=== PATIENT | male | born 1970 | race Two or more races ===

== ENCOUNTER 2024-09-11 23:51 | Emergency (ER) | payer OTHER, MEDICAID, SELFPAY ==
[2024-09-11 23:54] VITALS: BMI 20.9
[2024-09-11 23:58] VITALS: BP 105/71; PULSE 100; RESP 19; TEMP 36.6; O2SAT 99
--- NOTE | 2024-09-12 00:12 | PD.EDRME ---
Rapid Medical Screening Exam E Arrival date/time: 09/11/24 23:51 54M with history of cirrhosis presents to ED with bleeding and oozing of fluid from the abdominal ascites evacuation tube insertion site put in on the 4th by Dr. Little. Chief Complaint: Wound Recheck / Suture Removal Vital signs: Vital Signs Temperature 97.9 F 09/11/24 23:58 Pulse Rate 100 09/11/24 23:58 Respiratory Rate 19 09/11/24 23:58 Blood Pressure 105/71 09/11/24 23:58 Pulse Oximetry (%) 99 09/11/24 23:58 Oxygen Delivery Method Room Air 09/11/24 23:58
[2024-09-12 05:16] VITALS: BP 115/64; PULSE 89; RESP 17; TEMP 36.6; O2SAT 97
[2024-09-12 06:37] VITALS: BP 114/67; PULSE 88; RESP 17; TEMP 36.7; O2SAT 100
--- NOTE | 2024-09-12 07:09 | EDNOTE_ITS ---
ED General RME/HPI General Chief complaint: Wound Recheck / Suture Removal Stated complaint: BLEEDING AND LEAKING LIQUID FROM TUBVE SITE Time Seen by Provider: 09/12/24 08:10 Arrival date/time: 09/11/24 23:51 RME / HPI RME / HPI narrative: 09/11/24 23:51 54M with history of cirrhosis presents to ED with bleeding and oozing of fluid from the abdominal ascites evacuation tube insertion site put in on the 4th by Dr. Little. Dr. Menchaca MAIN ED EVALUATION 54 year old male with history of liver cirrhosis, end stage liver disease with thrombocytopenia, recurrent ascites s/p Pleurx catheter insertion by Dr. Venegas on 09/06/2024 presents to the ED for concerns of drainage and bleeding from catheter site beginning 4 days ago. reports they have been unable to reach Dr. Bowen for an appointment. states they have an appointment with their PCP Hank English on 09/14/2024. No other complaints reported. Denies fevers, chills, chest pain, cough, shortness of breath, or abdominal pain. Related Data Home Medications ?Medication ?Instructions ?Recorded ?Confirmed furosemide 20 mg tablet 20 mg PO QDAY 10/22/21 09/06/24 ferrous sulfate 325 mg (65 mg 1 tab PO BID 07/12/22 09/06/24 iron) tablet trazodone 100 mg tablet 100 mg PO QHSPRN PRN Sleep 07/12/22 09/06/24 megestrol 40 mg tablet 80 mg PO TID 04/01/24 04/01/24 pantoprazole 40 mg tablet,delayed 40 mg PO BID 04/01/24 08/20/24 release potassium chloride 10 mEq 10 meq PO QDAY 04/01/24 09/06/24 tablet,extended release(part/cryst) dexamethasone 4 mg tablet 4 mg PO BID 08/20/24 09/06/24 hydrocodone 5 mg-acetaminophen 325 1 tab PO Q6H PRN Gastric Reflux 08/20/24 09/06/24 mg tablet spironolactone 100 mg tablet 100 mg PO BID 08/20/24 09/06/24 midodrine 5 mg tablet 5 mg PO TID PRN Hypotension 09/06/24 09/06/24 Previous Rx's ?Medication ?Instructions ?Recorded propranolol 10 mg tablet 10 mg PO TID #90 tabs 10/15/22 Allergies Allergy/AdvReac Type Severity Reaction Status Date / Time peanut Allergy Severe Hives Verified 09/11/24 23:54 Review of Systems Review of Systems Narrative Review of Systems: Gen: No fever, no chills, no weight loss EYES: No discharge, no visual changes, no pain HEENT: No ear pain, no congestion, no sore throat PULM: No shortness of breath, no cough, no congestion CV: No chest pain, no dyspnea on exertion, no palpitations GI: +drainage from Pleurx catheter insertion site on abdomen. No nausea, no vomiting, no diarrhea, no pain, no constipation : No frequency, no urgency,? no dysuria Musc/skel: No joint pain, no back pain Skin: No rash. Neuro: No weakness, no headache Past Medical History Past Medical History CARDIAC: Positive Hypertension and Hypotension RESPIRATORY: Positive Pneumonia GASTROINTESTINAL: Positive Hepatitis, Cirrhosis, Gastrointestinal Bleed, Esophageal Varices, Ulcer, Hiatal Hernia, Hemorrhoids and Gastroesophageal Reflux Disease GENITOURINARY: Positive Genitourinary Disorders (urinary retention) HEMATOLOGIC: Positive Anemia PSYCHO/SOCIAL: Positive Recreational Drug Use OTHER HISTORY: Positive Falls, Blood Transfusions, Cancer and Lung Cancer (unclear) Surgical History SURGICAL: Negative Cardiac Surgery Social History SMOKING STATUS: Never smoker SUBSTANCE USE: marijuana ED Exam Narrative Physical exam: GENERAL: In general the patient is awake, interactive, in an emergency department gurney. Lying comfortably. No jaundice. HEAD/EYES/EARS/NOSE/THROAT: normo-cephalic, atraumatic, mucus membranes are moist, anicteric, palpebral conjunctiva is pink, trachea is midline. CARDIOVASCULAR: regular rate and regular rhythm, no murmurs, heart sounds are not distant, strong pulses in all four extremities that are equal and symmetric bilateral upper and lower extremities, normal capillary refill. CHEST/PULMONARY: normal chest rise and fall, good air movement, clear to auscultation bilaterally, normal inspiratory to expiratory ratios without evidence of respiratory distress. No accessory muscle use. ABDOMEN: soft, not tender, no masses appreciated, there is dressing on the right mid abdomen with dry serosanguineous drainage on the sponge under the tegaderm, no surrounding erythema. Upon removing the dressing there is a very small leak. BACK: normal range of motion without pain. NEUROLOGICAL: cranio-facial features are symmetric, moves all four extremities equally without obvious limitations or weakness. EXTREMITY: no tenderness to palpation over the long bones or large joints of the bilateral upper and lower extremities, no joint swelling, no joint erythema, no signs of trauma, no unilateral leg swelling and no peripheral edema. SKIN: warm, dry, well-perfused, no jaundice, no rash, no telangiectasias or petechia. PSYCH: calm, cooperative, no evidence of psychosis or agitation Course Quality Measures none Vital Signs Vital signs: Vital Signs Temperature 97.9 F 09/11/24 23:58 Pulse Rate 100 09/11/24 23:58 Respiratory Rate 19 09/11/24 23:58 Blood Pressure 105/71 09/11/24 23:58 Pulse Oximetry (%) 99 09/11/24 23:58 Oxygen Delivery Method Room Air 09/11/24 23:58 Pulse ox is 99% on room air which is adequate. Procedures -ED Laceration Laceration 1: Site: other (Abdomen ) Side (If applicable): right (About .5cm from the insertion site with intermittently dripping clear fluid ) Size (cm): 0.5 Description: linear Depth: simple, single layer Local Anesthetic: lidocaine 1% Amount of anesthesia used (mL): 1 Pre-repair: wound explored Skin layer closed with: other (Ethilon) Size (cm): 4-0 Number of sutures: 1 Technique: other (Figure 8 ) MDM Patient data External records reviewed:: [facility] previous records (I reviewed ultrasound guided Pleurx insertion procedure note from Dr. Bowen 09/06/2024. I reviewed ED visit on 09/07/2024. ) Clinical information provided by:: patient Social determinants that could affect healthcare access:: none Patient has the following chronic illnesses:: liver cirrhosis, end stage liver disease with thrombocytopenia, recurrent ascites s/p Pleurx catheter insertion by Dr. Bowen on 09/06/2024 How is presenting disease/condition affected by chronic disease/condition?: exacerbated by Evaluation data The following diagnostics were reviewed and interpreted by me:: other (specify) (N/A ) Lab and/or radiology exams considered but not ordered:: None Interpretation Summary: N/A Medications Medications considered but not ordered:: None Medication administrations:: None Consultations Consultation(s) initiated? (list below): No Diagnosis Differential Diagnosis ED Complaint MDM: Encounter for medical screening exam, Pleurx catheter malfunction Most likely diagnosis given after review of the tests above:: Encounter for wound care Admission Indicated Admission indicated?: not indicated Explain why admission is indicated or not indicated:: Patient does not meet admission criteria Admission Request Was there a request for admission?: No Disposition Plan Disposition Plan: Discharge Discharge Attestation Discharge Attestation: The patient and all family members were given an opportunity to ask questions and understood the discharge instructions. Discharge instructions specifically effects, indications for sooner follow up or return to the emergency department, and the expected course of current diagnosis. Patient condition: Stable Medical Decision Making Differential Diagnosis Differential Diagnosis: Encounter for medical screening exam, Pleurx catheter malfunction Discharge Plan Plan Patient Disposition: HOME (Self Care) Patient condition on transfer: Stable Prescriptions/Referrals Prescriptions/Med Rec: No Action furosemide 20 mg tablet 20 mg PO QDAY Hold Instructions: Resume on 08/28/24. trazodone 100 mg tablet 100 mg PO QHSPRN PRN (Reason: Sleep) Patient Comments: TAKE 1 TABLET BY MOUTH EVERY DAY AT BEDTIME NEEDED FOR 30 DAYS ferrous sulfate 325 mg (65 mg iron) tablet 1 tab PO BID Patient Comments: TAKE 1 TABLET BY MOUTH TWICE A DAY FOR 30 DAYS propranolol 10 mg tablet 10 mg PO TID Qty: 90 0RF Hold Instructions: Resume on 08/28/24. midodrine 5 mg tablet 5 mg PO TID PRN (Reason: Hypotension) Rx Instructions: do not give last dose of day after 6PM or within 4 hrs of bedtime pantoprazole 40 mg tablet,delayed release (DR/EC) 40 mg PO BID Patient Comments: TAKE 1 TABLET BY MOUTH TWICE A DAY megestrol 40 mg tablet 80 mg PO TID Patient Comments: TAKE 2 TABLETS BY MOUTH 3 TIMES A DAY potassium chloride 10 mEq tablet,ER particles/crystals 10 meq PO QDAY spironolactone 100 mg tablet 100 mg PO BID Hold Instructions: Resume on 08/28/24. dexamethasone 4 mg tablet 4 mg PO BID hydrocodone-acetaminophen 5-325 mg Tablet 1 tab PO Q6H PRN (Reason: Gastric Reflux) Referrals: No Primary/Family,Physician [Primary Care Provider] - In 1 week Problem List Clinical Impression: Encounter for wound care Patient/Caregiver Discharge Instructions Education Materials: ED Wound Care Additional Instructions: Return to the emergency department for worsening symptoms or any other concerns. Follow-up with your primary care this week as scheduled. Print Language: Bahraini Stand Alone Forms: Jessica Award Info., Patient Portal Info Letter
[2024-09-12 08:12] VITALS: BP 118/67; PULSE 88; RESP 16; TEMP 37; O2SAT 100
== END 2024-09-12 08:24 | disposition home or self-care (01) ==
PROVIDERS: Emergency Provider Emergency Medicine
DX: S31.119A Laceration without foreign body of abdominal wall, unspecified quadrant without penetration into peritoneal cavity, initial encounter (principal); L76.22 Postprocedural hemorrhage of skin and subcutaneous tissue following other procedure; X58.XXXA Exposure to other specified factors, initial encounter
CPT/HCPCS: 12001; 99283

== ENCOUNTER 2024-09-20 11:09 | Inpatient (IN) | payer MEDICAID, SELFPAY ==
[2024-09-20] VITALS (7 sets, daily range): BP systolic 92–103; BP diastolic 57–71; PULSE 93–107; RESP 17–20; TEMP 36.6–36.8; O2SAT 99–100; BMI 28.3; BMI 20.7
--- NOTE | 2024-09-20 12:05 | XR_ITS ---
Examination: CT abdomen and pelvis without contrast. Coronal 3-D reconstructions. Sagittal 2-D reconstructions. Date and time of exam:September 20, 2024 1215 hours INDICATIONS: Abdominal distention today, history abdominal ascites drainage tube CTDI: vol (mGy): 5.17 DLP: (mGycm): 304 Technique: Axial images of the abdomen have been obtained, 3 mm slice thickness Intravenous contrast material has not been administered. Low dose protocols were performed. One or more of the following dose reduction techniques were used; automated exposure control, adjustment of the mA and/or KV according to patient size, use of iterative reconstruction technique. Findings: Cirrhosis, liver nodular in contour Prominent ascites Contracted gallbladder No splenic or pancreatic lesion Linear hyperdense area in the right kidney axial image 95 Aorta normal size The Pleurx drainage catheter is in satisfactory position Fluid containing umbilical hernia No bowel obstruction IMPRESSION: Cirrhosis Prominent ascites Pleurx drainage catheter is in satisfactory position
--- NOTE | 2024-09-20 12:07 | EDNOTE_ITS ---
ED General RME/HPI General Chief complaint: Altered Mental Status Stated complaint: CONFUSED. PULLED PARA TUBE OUT PER FAMILY Time Seen by Provider: 09/20/24 11:14 Arrival date/time: 09/20/24 11:09 CC: Potential dislodgment of an abdominal ascites drain tube HPI last time it was used was this morning, nurses noted at home that the drain tube had essentially dislodged itself for the most part there is no active draining of ascites from the site. Patient states last time the tube was used prior to today was September 17. Patient is mildly confused which is baseline per the because of his elevated ammonia level. Patient states he has no specific complaints other than tube dislodgment. Abdomen is mildly distended secondary to ascites. Related Data Home Medications ?Medication ?Instructions ?Recorded ?Confirmed furosemide 20 mg tablet 20 mg PO QDAY 10/22/21 09/21/24 ferrous sulfate 325 mg (65 mg 1 tab PO BID 07/12/22 09/21/24 iron) tablet trazodone 100 mg tablet 100 mg PO QHSPRN PRN Sleep 07/12/22 09/21/24 pantoprazole 40 mg tablet,delayed 40 mg PO BID 04/01/24 09/21/24 release potassium chloride 10 mEq 10 meq PO QDAY 04/01/24 09/21/24 tablet,extended release(part/cryst) dexamethasone 4 mg tablet 8 mg PO BID 08/20/24 09/21/24 hydrocodone 5 mg-acetaminophen 325 1 tab PO Q6H PRN Pain 08/20/24 09/20/24 mg tablet spironolactone 100 mg tablet 100 mg PO BID 08/20/24 09/21/24 midodrine 5 mg tablet 5 mg PO TID PRN Hypotension 09/06/24 09/21/24 melatonin 3 mg tablet 3 mg PO HS PRN Sleep 09/21/24 09/21/24 omeprazole 10 mg capsule,delayed 10 mg PO QDAY 09/21/24 09/21/24 release Allergies Allergy/AdvReac Type Severity Reaction Status Date / Time peanut Allergy Severe Hives Verified 09/20/24 11:10 Review of Systems Review of Systems Narrative Review of Systems: GEN: No fever, no chills, no weight loss EYES: No discharge, no visual changes, no pain HEENT: No ear pain, no congestion, no sore throat PULM: No shortness of breath, no cough, no congestion CV: No chest pain, no dyspnea on exertion, no palpitations GI: No nausea, no vomiting, no diarrhea, no pain, no constipation,+ abdominal distention secondary to ascites : No frequency, no urgency, no dysuria MUSC/SKEL: No joint pain, no back pain SKIN: No rash PSYCH: No hallucinations, no depression HEME/LYMPH: No easy bleeding or bruising tendencies NEURO: No weakness, no headache Past Medical History Past Medical History NEUROLOGIC: Negative Neurological Disorders or Seizures CARDIAC: Positive Hypertension and Hypotension; Negative Cardiac Disorders, Hypercholesterolemia or Congestive Heart Failure RESPIRATORY: Positive Pneumonia; Negative Chronic Obstructive Pulmonary Disease (COPD) or Asthma GASTROINTESTINAL: Positive Hepatitis, Cirrhosis, Gastrointestinal Bleed, Esophageal Varices, Ulcer, Hiatal Hernia, Hemorrhoids and Gastroesophageal Reflux Disease GENITOURINARY: Positive Genitourinary Disorders; Negative Renal Disease MUSCULOSKELETAL: Negative Musculoskeletal Disorders ENDOCRINE: Negative Diabetes Mellitus Type 1 or Diabetes Mellitus Type 2 HEMATOLOGIC: Positive Anemia; Negative Sickle Cell Disease PSYCHO/SOCIAL: Positive Recreational Drug Use; Negative Anxiety OTHER HISTORY: Positive Falls, Blood Transfusions, Cancer and Lung Cancer; Negative Blood Transfusion Reaction or Anesthesia Reactions Surgical History SURGICAL: Negative Cardiac Surgery Social History SMOKING STATUS: Never smoker SUBSTANCE USE: marijuana ED Exam Narrative Physical exam: [General: Appears not in any acute distress Head normocephalic HEENT: Eyes: Sclera's are icteric. All other subsystems of HEENT are within acceptable limits Neck is supple nontender Chest equal chest rise nontender to palpation Respiratory: Clear to auscultation no wheezes crackles or rubs CV: Rate rhythm is regular no murmurs rubs or clicks Abdomen is distended secondary to ascites, soft nontender no masses positive bowel sounds all 4 quadrants, right lower quadrant drain tube sites clean dry and intact drain to and is partially protruding through the surgical opening no surrounding erythema or edema. Back: No CVA tenderness no spinous process tenderness from cervical spine thoracic and lumbar spine Skin: Jaundice, intact no petechiae rash induration ulceration or crepitus Extremities: Moving all extremity against resistance cap refill less than 2 seconds neurosensory intact Neuro: Awake alert oriented x2, person and place, Glascow coma 15 no focal deficits] Course Course Course Narrative: Patient case discussed with Dr. Brand who agrees to accept the patient for Dr. Esquivel. Quality Measures none Orders Category Date Time Status CT abdomen pelvis wo con Stat Exams 09/20/24 12:05 Completed Ammonia Stat Lab 09/20/24 12:41 Completed CBC Stat Lab 09/20/24 12:41 Completed CMP [Comprehensive Metabolic Panel] Stat Lab 09/20/24 12:41 Completed PT [Prothrombin Time with INR] Stat Lab 09/20/24 12:41 Completed PTT [Partial Thromboplastin Time] Stat Lab 09/20/24 12:41 Completed VBG [Venous Blood Gas] Stat Lab 09/20/24 14:21 Completed Lactulose Syrup [Enulose Syrup] Med 09/20/24 13:17 Discontinued 40 gm PO X1 ONE Late Tray Request Routine Oth 09/20/24 12:46 Active Vital Signs Vital signs: Vital Signs Temperature 98.1 F 09/20/24 11:18 Pulse Rate 93 09/20/24 11:18 Respiratory Rate 18 09/20/24 11:18 Blood Pressure 92/57 L 09/20/24 11:18 Pulse Oximetry (%) 100 09/20/24 11:18 Oxygen Delivery Method Room Air 09/20/24 11:18 Procedures -ED Procedure Comment Resecuring of the Pleur-evac drainage verbal consent of obtained anesthesia 1% lidocaine 3 mL injected in the local site, the site was extensively cleaned, Pleur-evac tube was also extensively cleaned with Betadine, site was then approximated with a purse stitch of 0 silk with good approximation and securing patient tolerated the procedure well pressure dressing applied. [facility] Patient data External records reviewed:: [facility] previous records Clinical information provided by:: patient and spouse Social determinants that could affect healthcare access:: none Patient has the following chronic illnesses:: Abdominal ascites end-stage liver disease and hepatic encephalopathy cirrhosis secondary to alcohol abuse How is presenting disease/condition affected by chronic disease/condition?: u neffected by Evaluation data The following diagnostics were reviewed and interpreted by me:: lab results and radiology exam(s) Lab and/or radiology exams considered but not ordered:: CBC shows leukocytosis 19.1 with a stable anemia no thrombocytopenia CMP shows a sodium 118 potassium of 5.6 chloride of 97 CO2 of 13.9 BUN of 19 creatinine 1.3 glucose of 9 8 total bili of 5.3 AST 62 alk phos of 172 ammonia of 75 PT of 18.9 INR 1.[address] shows the Pleur-evac drain in satisfactory position as interpreted by me read by radiology. There is also ascites Interpretation Summary: Patient needs to be admitted for hyponatremia. Medications Medications considered but not ordered:: None Medication administrations:: Medication Administration History Acetaminophen (Acetaminophen 325 Mg Tablet) 650 mg PO Q6H PRN PRN Reason: Pain (1-3) and Fever >101.5 Stop: 10/20/24 15:21 Hydrocodone Bitart/Acetaminophen (Hydrocodone/Apap 5/325 Tablet) 1 tab PO Q6HR PRN PRN Reason: PAIN SCALE 4-10(Mod-Sev Stop: 09/25/24 23:20 Last Admin: 09/20/24 23:50 Dose: 1 tab Documented By: CL Citric Acid/Sodium Citrate (Citric Acid/Sodium Citr 15 Ml Udc (Bicitra)) 30 ml PO BID [facility] Stop: 10/21/24 08:59 Albumin Human (Albuminar-25 Ivpb) 25 gm in 100 mls @ 100 mls/hr IV QID [facility] Stop: 09/23/24 16:59 Last Admin: 09/21/24 06:41 Dose: 100 mls/hr Documented By: Infusion: 09/20/24 21:02 Dose: Infused Documented By: Admin: 09/20/24 20:02 Dose: 100 mls/hr Documented By: Infusion: 09/20/24 18:08 Dose: Infused Documented By: Admin: 09/20/24 17:02 Dose: 100 mls/hr Documented By: RICHAR Ceftriaxone Sodium 2 gm/ (Sodium Chloride) 50 mls @ 100 mls/hr IV QDAY [facility] Stop: 09/27/24 17:14 Last Infusion: 09/20/24 18:10 Dose: Infused Documented By: Admin: 09/20/24 17:30 Dose: 100 mls/hr Documented By: RICHAR Dextrose (D5w) 1,000 mls @ 50 mls/hr IV .Q20H [facility] Last Admin: 09/21/24 00:29 Dose: 50 mls/hr Documented By: CL Lactulose (Lactulose Syrup 20 Gm/30 Ml Udc) 10 gm PO BID [facility]; Protocol Stop: 10/20/24 20:59 Last Admin: 09/20/24 20:03 Dose: 10 gm Documented By: CL Midodrine (Midodrine 5 Mg Tablet) 5 mg PO TID JOSELIN Stop: 10/20/24 15:44 Last Admin: 09/21/24 06:40 Dose: 5 mg Documented By: Admin: 09/20/24 22:08 Dose: 5 mg Documented By: Admin: 09/20/24 16:35 Dose: 5 mg Documented By: RICHAR Ondansetron HCl (Ondansetron Inj 2 Mg/Ml Inj 2 Ml) 4 mg IV Q6H PRN; Protocol PRN Reason: NAUSEA OR VOMITING Stop: 10/20/24 15:21 Pantoprazole Sodium (Pantoprazole Inj 40 Mg Vial) 40 mg IVP QDAY JOSELIN Stop: 10/20/24 15:29 Last Admin: 09/20/24 16:25 Dose: 40 mg Documented By: RICHAR Discontinued Medications Acetaminophen (Acetaminophen 325 Mg Tablet) 650 mg PO Q6H PRN PRN Reason: Pain and Fever >101.5 Stop: 10/20/24 15:21 Hydrocodone Bitart/Acetaminophen (Hydrocodone/Apap 5/325 Tablet) 1 tab PO Q6HR PRN PRN Reason: PAIN 1-6 (mild-mod Stop: 09/25/24 23:20 Ceftriaxone Sodium/Dextrose (Rocephin/D5w 1gm Iv Premix) 50 mls @ 100 mls/hr IV QDAY [facility] Stop: 09/27/24 15:29 Last Admin: 09/20/24 17:54 Dose: Not Given Documented By: RICHAR Non-Admin Reason: Discontinued Albumin Human (Albuminar-25 Ivpb) 25 gm in 100 mls @ 100 mls/hr IV QDAY [facility] Stop: 09/23/24 15:51 Last Admin: 09/20/24 17:54 Dose: Not Given Documented By: RICHAR Non-Admin Reason: Discontinued Albumin Human (Albuminar-25 Ivpb) 25 gm in 100 mls @ 100 mls/hr IV TID [facility] Stop: 09/23/24 21:59 Sodium Chloride (Ns) 1,000 mls @ 70 mls/hr IV .[id number] ONE Stop: 09/21/24 10:06 Last Admin: 09/20/24 22:08 Dose: 70 mls/hr Documented By: CL Lactulose (Lactulose Syrup 20 Gm/30 Ml Udc) 40 gm PO X1 ONE; Protocol Stop: 09/20/24 13:18 Last Admin: 09/20/24 15:06 Dose: 40 gm Documented By: RICHAR Sodium Bicarbonate (Sodium Bicarb Inj 8.4% 1 Meq/Ml Vial 50 Ml) 50 meq IV X1 ONE Stop: 09/20/24 15:41 Last Admin: 09/20/24 16:30 Dose: 50 meq Documented By: RICHAR None Consultations Consultation(s) initiated? (list below): No Diagnosis Differential Diagnosis ED Complaint MDM: Hyponatremia, ascites, cirrhosis Most likely diagnosis given after review of the tests above:: Hyponatremia ascites cirrhosis Admission Indicated Admission indicated?: indicated Explain why admission is indicated or not indicated:: Requires further medical management Admission Request Was there a request for admission?: No Disposition Plan Disposition Plan: Admit Medical Decision Making Differential Diagnosis Differential Diagnosis: Hyponatremia, ascites, cirrhosis Lab Data 09/21/24 05:00 09/21/24 05:00 Labs: Lab Results 09/20/24 09/20/24 09/20/24 Range/Units 06:43 12:41 14:21 WBC 19.1 H (3.8-10.6) Thou/mm3 RBC 2.53 L (4.50-5.90) Miln/mm3 Hgb 8.5 L (13.5-16.0) g/dL Hct 23.9 L (41.0-53.0) % MCV 95 (80-100) fL MCH 33.6 (25.0-35.0) pg MCHC 35.6 (31.0-37.0) g/dl RDW Std Deviation 64.7 H (35.1-43.9) fL Plt Count 102 L (140-440) Thou/mm3 Neut % (Auto) 80 (37-80) % Lymph % (Auto) 9 L (10-50) % Esmeralda % (Auto) 10 (0-12) % Eos % (Auto) 1 (0-10) % Baso % (Auto) 0 (0-2.5) % Neut # (Auto) 15.2 H (1.8-7.7) Thou/mm3 Lymph # (Auto) 1.7 (1.0-4.8) Thou/mm3 Esmeralda # (Auto) 1.9 H (0.0-0.8) Thou/mm3 Eos # (Auto) 0.1 (0.0-0.5) Thou/mm3 Baso # (Auto) 0.1 (0.0-0.2) Thou/mm3 Immature Gran # (Auto) 0.18 H (0.00-0.00) Thou/mm3 Absolute Nucleated RBC 0.00 (0.00-0.00) Thou/mm3 Immature Gran % 1 H (0-0) % Nucleated RBC % 0 (0) /100 WBC PT 18.9 H (9.0-12.2) Seconds INR 1.8 H (0.9-1.3) APTT 48.4 H D (22.0-36.0) Seconds VBG pH 7.34 (7.33-7.66) VBG pCO2 30 L (36-56) mmHg VBG pO2 35 (15-58) mmHg VBG O2 Sat (Sergio) 62 L (96-97) % VBG Base Excess -9 L (-3-3) Sodium 118 L* (136-145) mMol/L Potassium 5.6 H (3.4-5.1) mMol/L Chloride 97 L (98-107) mMol/L Carbon Dioxide 13.9 L* (20.0-31.0) mMol/L Anion Gap 7 (7-16) BUN 19 (9-23) mg/dL Creatinine 1.3 (0.6-1.3) mg/dL Estim Creat Clear Calc 56.6 L (>60) mL/min eGFR > 60 (60 - ) See Note BUN/Creatinine Ratio 15 (12-20) Ratio Glucose 98 (74-106) mg/dL Calculated Osmolality 240 L (275-295) Calcium 8.3 (8.3-10.6) mg/dL Corrected Calcium 9.6 (8.5-10.1) mg/dL Total Bilirubin 5.3 H (0.3-1.2) mg/dL AST 62 H (0-34) U/L ALT 31 (10-49) U/L Alkaline Phosphatase 172 H (46-116) U/L Ammonia 75 H (11-32) uMol/L Total Protein 5.4 L (5.7-8.2) gm/dL Albumin 2.4 L (3.5-5.0) gm/dL Globulin 3.0 (2.3-3.5) gm/dL Albumin/Globulin Ratio 0.8 L (1.2-2.2) Ur Random Creatinine 226 H (30-125) mg/dL Ur Random Sodium < 10.0 L (20.0-110.0) mMol/L Ur Random Potassium 38 (12-62) mMol/L Ur Random Chloride < 20.0 L (55.0-125.0) mMol/L Ethyl Alcohol < 10.0 (0-10.0) mg/dL Discharge Plan Plan Patient Disposition: Other Care w/in Hosp ([facility]) Patient condition on transfer: Stable Problem List Clinical Impression: Hyponatremia, Cirrhosis, Ascites, Anemia, Thrombocytopenia MD Attestation MD Attestation The patient was seen by the midlevel practitioner. I, the co-signing physician, was present during the entire ER visit. While I did not physically examine the patient, I was available for consultation as needed.
[2024-09-20 12:57] LABS: Basophils # (Auto) 0.1 Thou/mm3 (0.0-0.2); Basophils % (Auto) 0 % (0-2.5); Eosinophils # (Auto) 0.1 Thou/mm3 (0.0-0.5); Eosinophils % (Auto) 1 % (0-10); Hematocrit 23.9 % (41.0-53.0); Immature Granulocytes % (Auto) 1 % (0-0); Immature Granulocytes Auto 0.18 Thou/mm3 (0.00-0.00); Lymphocytes # (Auto) 1.7 Thou/mm3 (1.0-4.8); Lymphocytes % (Auto) 9 % (10-50); Mean Corpuscular HGB Conc 35.6 g/dl (31.0-37.0); Mean Corpuscular Hemoglobin 33.6 pg (25.0-35.0); Mean Corpuscular Volume 95 fL (80-100); Monocytes # (Auto) 1.9 Thou/mm3 (0.0-0.8); Monocytes % (Auto) 10 % (0-12); Neutrophils # (Auto) 15.2 Thou/mm3 (1.8-7.7); Neutrophils % (Auto) 80 % (37-80); Nucleated Red Blood Cell % 0 /100 WBC (0); Platelet Count 102 Thou/mm3 (140-440); RDW Standard Deviation 64.7 fL (35.1-43.9); Red Blood Count 2.53 Miln/mm3 (4.50-5.90); White Blood Count 19.1 Thou/mm3 (3.8-10.6)
[2024-09-20 13:00] LABS: Hemoglobin 8.5 g/dL (13.5-16.0)
[2024-09-20 13:08] LABS: INR 1.8 (0.9-1.3); Partial Thromboplastin Time 48.4 Seconds (22.0-36.0); Prothrombin Time 18.9 Seconds (9.0-12.2)
[2024-09-20 13:11] LABS: Ammonia 75 uMol/L (11-32)
[2024-09-20 13:18] LABS: Alanine Aminotransferase 31 U/L (10-49); Albumin, Serum 2.4 gm/dL (3.5-5.0); Albumin/Globulin Ratio 0.8 (1.2-2.2); Alkaline Phosphatase 172 U/L (46-116); Anion Gap 7 (7-16); Aspartate Amino Transferase 62 U/L (0-34); BUN/Creatinine Ratio 15 Ratio (12-20); Bilirubin,Total 5.3 mg/dL (0.3-1.2); Blood Urea Nitrogen 19 mg/dL (9-23); Calcium 8.3 mg/dL (8.3-10.6); Calcium (Corrected) 9.6 mg/dL (8.5-10.1); Chloride 97 mMol/L (98-107); Creatinine (Component) 1.3 mg/dL (0.6-1.3); Estimated Creatinine Clearance 56.6 mL/min (>60); Glucose 98 mg/dL (74-106); Osmolality,Calculated 240 (275-295); Potassium 5.6 mMol/L (3.4-5.1); Total Protein 5.4 gm/dL (5.7-8.2); eGFR > 60 See Note
[2024-09-20 13:19] LABS: Sodium 118 mMol/L (136-145)
[2024-09-20 13:20] LABS: Carbon Dioxide 13.9 mMol/L (20.0-31.0)
[2024-09-20 14:35] LABS: Base Excess, Venous -9 (-3-3); O2 Saturation, Venous 62 % (96-97); PCO2, Venous 30 mmHg (36-56); PO2, Venous 35 mmHg (15-58); pH, Venous 7.34 (7.33-7.66)
[2024-09-20] MEDS: LACTULOSE SYRUP 20 GM/30 ML UDC 40 GM PO (15:06)
[2024-09-20 16:05] LABS: Alcohol, Blood Medical < 10.0 mg/dL (0-10.0)
--- NOTE | 2024-09-20 16:11 | ESHP_ITS ---
Documentation for date of: 09/20/24 [facility] History of Present Illness Chief complaint: Hyponatremia History of present illness: Mr. Henry is a 54-year-old male with history of end-stage liver disease secondary to alcohol use, decompensated liver cirrhosis, thrombocytopenia, esophageal varices and personal history of lung cancer who presented to [facility] with a chief complaint of hyponatremia. Patient initially presented due to concern of dislodging paracentesis pleurx catheter, patient's sister at bedside reported that he was confused at home and possibly tugged on the catheter, does report increased redness and discomfort from around the catheter site. Patient did have paracentesis earlier this morning where adequate amount of fluid was removed, during workup in ED patient's sodium came back 118 and hospitalist team was consulted due to concern of hyponatremia. Patient denies any dizziness, is alert oriented x 4, was given lactulose in the ED 40 g due to concern of elevated ammonia. Patient otherwise has no complaints and reports he is feeling fine. Patient denies any chest pain, shortness of breath and headache. ED Course: ED Vitals: On presentation in ED BP 92/5 7, P93, RR 18, temp 98.1, O2 sat 100 on room air ED Labs: ED labs significant for WBC 19.1, RBC 2.53, hemoglobin 8.5, hematocrit 23.9, platelet count 102, PT 18.9, INR 1.8, APTT 48.4, sodium 118, potassium 5.6, chloride 97, carbon dioxide 13.9, osmolality 240, total bilirubin 5.3, AST 62, alk phos 172, ammonia 75, total protein 5.4, albumin 2.4, VBG shows pCO2 30, pO2 35, pH 7.34 ED Imaging:CTAP in ED showed cirrhosis, prominent ascites and Pleurx drainage catheter in satisfactory position ED Treatment:Patient was given lactulose 40 g in ED, catheter was stitched in place in ED. Review of Systems Review of Systems Narrative Review of Systems: ROS: -CONSTITUTIONAL: Denies weight loss, fever and chills. -HEENT: Denies changes in vision and hearing. -RESPIRATORY: Denies SOB and cough. -CV: Denies palpitations and Chest Pain. -GI: Denies abdominal pain, nausea, vomiting,constipation and diarrhea. -: Denies dysuria and urinary frequency. -MSK: Denies myalgia and joint pain. -SKIN: Denies rash and pruritus. -NEUROLOGICAL: Denies headache and syncope. -PSYCHIATRIC: Denies recent changes in mood. Denies anxiety and depression. Past Medical History Past Medical History Comments PMH COMMENT: PMH: Positive for Decompensated Cirrhosis, w/ ascites Secondary to Alcohol Use Disorder End State Liver Disease Thrombocytopenia Normocytic Anemia Hypotension and personal history of lung cancer PSHx: Pleurx catheter insertion with weekly paracentesis Allergies: Peanut Social history: Patient lives with mother at home -Smoking: Positive for smoking in past -Alcohol Use: Positive for alcohol use in past -Illicit Drug Use: Reports marijuana use Family History: Denies any significant family history Exam Vital Signs Temp Pulse Resp BP Pulse Ox O2 Del Method 98.1 F 93 18 92/57 L 100 Room Air 09/20/24 11:18 09/20/24 11:18 09/20/24 11:18 09/20/24 11:18 09/20/24 11:18 09/20/24 11:18 Narrative Exam Physical Exam General: Awake and in no acute distress. Conversational and non-toxic appearing. HEENT: Normocephalic, atraumatic, mucous membranes moist. Heart: Regular rate and rhythm, no murmurs. Lungs: Clear to auscultation with no wheezing or crackles. Abdomen: Soft, distended, ascitic pattern, positive bowel sounds. Umbilical hernia noted. PleurX catheter intact with tenderness around site and discharge. Neurologic: Alert and oriented x3, no gross neurological deficit, and patient able to move all 4 extremities. Extremities: No edema. Skin: No rash or ecchymoses. Results: Labs 09/23/24 05:12 09/23/24 05:12 Labs: Short CBC 09/20/24 Range/Units 12:41 WBC 19.1 H (3.8-10.6) Thou/mm3 Hgb 8.5 L (13.5-16.0) g/dL Hct 23.9 L (41.0-53.0) % Plt Count 102 L (140-440) Thou/mm3 BMP 09/20/24 12:41 Sodium 118 L* Potassium 5.6 H Chloride 97 L Carbon Dioxide 13.9 L* BUN 19 Creatinine 1.3 Glucose 98 Calcium 8.3 Liver Function 09/20/24 Range/Units 12:41 Total Bilirubin 5.3 H (0.3-1.2) mg/dL AST 62 H (0-34) U/L ALT 31 (10-49) U/L Alkaline Phosphatase 172 H (46-116) U/L Albumin 2.4 L (3.5-5.0) gm/dL ABG Interpretation ABG results: 09/20/24 14:21 VBG pH 7.34 VBG pCO2 30 L VBG pO2 35 VBG Base Excess -9 L Quality Measures Quality Measures VTE prophylaxis Medications Home Medications and Allergies Home Medications ?Medication ?Instructions ?Recorded ?Confirmed ?Type furosemide 20 mg tablet 20 mg PO QDAY 10/22/21 09/21/24 History ferrous sulfate 325 mg (65 mg 1 tab PO BID 07/12/22 09/21/24 History iron) tablet trazodone 100 mg tablet 100 mg PO QHSPRN PRN Sleep 07/12/22 09/21/24 History pantoprazole 40 mg tablet,delayed 40 mg PO BID 04/01/24 09/21/24 History release potassium chloride 10 mEq 10 meq PO QDAY 04/01/24 09/21/24 History tablet,extended release(part/cryst) dexamethasone 4 mg tablet 8 mg PO BID 08/20/24 09/21/24 History hydrocodone 5 mg-acetaminophen 325 1 tab PO Q6H PRN Pain 08/20/24 09/20/24 History mg tablet spironolactone 100 mg tablet 100 mg PO BID 08/20/24 09/21/24 History midodrine 5 mg tablet 5 mg PO TID PRN Hypotension 09/06/24 09/21/24 History melatonin 3 mg tablet 3 mg PO HS PRN Sleep 09/21/24 09/21/24 History omeprazole 10 mg capsule,delayed 10 mg PO QDAY 09/21/24 09/21/24 History release Allergies Allergy/AdvReac Type Severity Reaction Status Date / Time peanut Allergy Severe Hives Verified 09/20/24 11:10 Visit Medications Acetaminophen (Acetaminophen 325 Mg Tablet) 650 mg PO Q6H PRN PRN Reason: Pain and Fever >101.5 Stop: 10/20/24 15:21 Albumin Human (Albuminar-25 Ivpb) 25 gm in 100 mls @ 100 mls/hr IV QID JOSELIN Stop: 09/23/24 16:59 Lactulose (Lactulose Syrup 20 Gm/30 Ml Udc) 10 gm PO BID JOSELIN; Protocol Stop: 10/20/24 20:59 Midodrine (Midodrine 5 Mg Tablet) 5 mg PO TID JOSELIN Stop: 10/20/24 15:44 Ondansetron HCl (Ondansetron Inj 2 Mg/Ml Inj 2 Ml) 4 mg IV Q6H PRN; Protocol PRN Reason: NAUSEA OR VOMITING Stop: 10/20/24 15:21 Pantoprazole Sodium (Pantoprazole Inj 40 Mg Vial) 40 mg IVP QDAY JOSELIN Stop: 10/20/24 15:29 Discontinued Medications Ceftriaxone Sodium/Dextrose (Rocephin/D5w 1gm Iv Premix) 50 mls @ 100 mls/hr IV QDAY JOSELIN Stop: 09/27/24 15:29 Albumin Human (Albuminar-25 Ivpb) 25 gm in 100 mls @ 100 mls/hr IV QDAY JOSELIN Stop: 09/23/24 15:51 Albumin Human (Albuminar-25 Ivpb) 25 gm in 100 mls @ 100 mls/hr IV TID JOSELIN Stop: 09/23/24 21:59 Lactulose (Lactulose Syrup 20 Gm/30 Ml Udc) 40 gm PO X1 ONE; Protocol Stop: 09/20/24 13:18 Last Admin: 09/20/24 15:06 Dose: 40 gm Sodium Bicarbonate (Sodium Bicarb Inj 8.4% 1 Meq/Ml Vial 50 Ml) 50 meq IV X1 ONE Stop: 09/20/24 15:41 Assessment & Plan Plan Assessment and Plan Summary:Mr. Henry is a 54-year-old male with history of end-stage liver disease secondary to alcohol use, decompensated liver cirrhosis, thrombocytopenia, esophageal varices and personal history of lung cancer who presented to [facility] with a chief complaint of hyponatremia. # Euvolemic hypoosmolar hyponatremia -Patient denies any dizziness, is alert oriented x 4. Patient does have history of decompensated liver failure, has distended abdomen ascitic pattern. CTAP shows prominent ascites. -Patient had ascitic fluid drainage earlier today in a.m., patient has weekly paracentesis has Pleurx catheter. -Patient sodium 118 in ED. Patient is on Lasix and spironolactone at home. Plan: -Fluid restriction 1500 cc -Ordered urine electrolytes -Consulted nephrology, appreciate recommendations -Sodium checks every 4 hours with goal correction of 4 to 6 mEq in 24 hours. -Hold home diuretics #Ascites #Tenderness around Pleurx catheter #?Spontaneous bacterial peritonitis # Leukocytosis -Patient was on hospice prior, admits to being on hospice currently, reports tenderness and discomfort around Pleurx catheter, at high risk of infection due to the catheter. -Patient does not have any abdominal pain, unable to drain fluid as IR is not available currently Plan: -Started on albumin 25% 4 times daily for 3 days -Ceftriaxone 2 g/day -Paracentesis in a.m. with studies and cytology # Metabolic acidosis with compensatory respiratory alkalosis -Patient's pCO2 13.9, VBG shows pCO2 30 -Patient's metabolic acidosis likely in setting of cirrhosis. Plan: -Patient will be given sodium bicarbonate 50 mill equivalent x 1 -Monitor CMP in a.m. # Decompensated liver cirrhosis # Thrombocytopenia # History of esophageal gastric varices # History of GI bleed # Hypertension # Chronic normocytic anemia -Patient was recently admitted for GI bleed, had EGD with banding done, patient also had large internal hemorrhoids on colonoscopy had banding done. -Hemoglobin is stable, denies any blood in stool, denies any bloody emesis. -Patient is on midodrine 5 3 times daily at home, platelet count 102, coagulation panel PT 18.9, INR 1.8, APTT 48.4 on admission. Plan: -Monitor H&H -Resumed home dose of midodrine 5 3 times daily. DVT prophylaxis: SCDs GI prophylaxis: Protonix IV daily Diet: Low-sodium diet, fluid restriction 1500 cc Lines: Peripheral IV Code status: Full code Case discussed with Attending Dr. Esquivel. Tammy Brand PGY1 Attending Provider Attestation/Addendum I have discussed and was present for the essential components of the history, physical examination, diagnosis, and treatment plan with the resident. I agree with the patient's care as documented by the resident and amended herein by me. Erickson Esquivel DO. Although this document has been carefully reviewed, there may still be some phonetic and other typographical errors. These errors are purely grammatical due to imperfections in the software program and should not be construed in any way to compromise the substance of the patient's medical care during this visit.
[2024-09-20] MEDS: PANTOPRAZOLE INJ 40 MG VIAL IVP (16:25)
[2024-09-20] MEDS: SODIUM BICARB INJ 8.4% 1 mEq/ML VIAL 50 ML 50 MEQ IV (16:30)
[2024-09-20] MEDS: MIDODRINE 5 MG TABLET PO ×2 (16:35→22:08)
[2024-09-20] MEDS: ALBUMIN HUMAN 25% IVPB 25 GM/100 ML BTL IV ×2 (17:02→20:02)
[2024-09-20] MEDS: cefTRIAXone 2 GM in SODIUM CHLORIDE 0.9% (P) 50 ML IV (17:30)
--- NOTE | 2024-09-20 18:19 | PC.NURSE ---
UA sent to lab
[2024-09-20 18:42] LABS: Collection Type, Urine Clean Catch
--- NOTE | 2024-09-20 18:42 | PC.NURSE ---
pt arrived to hi floor
[2024-09-20 18:53] LABS: Bacteria,Urine Rare; Bilirubin,Urine 1+ (Negative); Blood,Urine Negative (Negative); Clarity,Urine Turbid (Clear/Hazy); Color,Urine Drk-Yellow (Lt Yel-Yel); Glucose, Urine Negative (Negative); Hyaline Casts,Urine 1 /hpf (0-1); Ketones,Urine Negative (Negative); Leukocyte Esterase,Urine Negative (Negative); Nitrite,Urine Negative (Negative); PH,Urine 5.5 (5.0-7.0); Protein,Urine Trace (Neg - Trace); RBC,Urine 4 /hpf (0-3); Specific Gravity,Urine 1.029 (1.001-1.035); Squamous Epithelial Cell,Urine 1 /hpf (0-5); WBC,Urine 5 /hpf (0-5)
[2024-09-20 18:58] LABS: Amphetamine/Methamp Scrn,U Negative (Negative); Barbiturate Screen,Urine Negative (Negative); Benzodiazepines Screen,Urine Negative (Negative); Benzoylecgonine Screen, Ur Negative (Negative); Fentanyl Screen,Urine Negative (Negative); Opiate Screen,Urine Positive (Negative); THC Screen,Urine Positive (Negative)
[2024-09-20 19:49] LABS: Chloride,Urine Random < 20.0 mMol/L (55.0-125.0); Creatinine,Random Urine 226 mg/dL (30-125); Potassium,Urine Random 38 mMol/L (12-62); Sodium,Urine Random < 10.0 mMol/L (20.0-110.0)
[2024-09-20] MEDS: LACTULOSE SYRUP 20 GM/30 ML UDC 10 GM PO (20:03)
--- NOTE | 2024-09-20 21:30 | PC.NURSE ---
called Dr. Neymar Williamson regarding patient's pleural drain site leaking fluid saturating dressing. Tube was stitched down at the ED, and was checked for placement. Placement is good.
[2024-09-20 22:02] LABS: Sodium 126 mMol/L (136-145)
[2024-09-20] MEDS: SODIUM CHLORIDE 0.9% 1000 ML 1,000 ML 70 ML IV (22:08)
--- NOTE | 2024-09-20 23:30 | PC.NURSE ---
Dr. Neymar Williamson and Dr. Mora saw patient at bedside to assess pleural tube site. Pt c/o leaking at another opening where patient had scratched the area. Opening was stitched this morning down at the ED. per MD monitor drainage and keep dressing for leakage.
[2024-09-20] MEDS: HYDROcodone/APAP 5/325 TABLET 1 TAB PO (23:50)
[2024-09-21] VITALS (16 sets, daily range): BP systolic 90–111; BP diastolic 53–66; PULSE 85–109; RESP 17–99; TEMP 36.6–37.2; O2SAT 99–100
[2024-09-21] MEDS: DEXTROSE 5%-WATER 1,000 ML 50 ML IV (00:29)
[2024-09-21 01:37] LABS: Sodium 124 mMol/L (136-145)
[2024-09-21 06:01] LABS: Basophils % (Auto) 1 % (0-2.5); Eosinophils # (Auto) 0.1 Thou/mm3 (0.0-0.5); Eosinophils % (Auto) 1 % (0-10); Immature Granulocytes % (Auto) 1 % (0-0); Immature Granulocytes Auto 0.06 Thou/mm3 (0.00-0.00); Lymphocytes # (Auto) 1.2 Thou/mm3 (1.0-4.8); Lymphocytes % (Auto) 16 % (10-50); Mean Corpuscular HGB Conc 35.3 g/dl (31.0-37.0); Mean Corpuscular Hemoglobin 32.8 pg (25.0-35.0); Mean Corpuscular Volume 93 fL (80-100); Monocytes # (Auto) 1.1 Thou/mm3 (0.0-0.8); Monocytes % (Auto) 14 % (0-12); Neutrophils # (Auto) 5.3 Thou/mm3 (1.8-7.7); Neutrophils % (Auto) 68 % (37-80); Nucleated Red Blood Cell % 0 /100 WBC (0); RDW Standard Deviation 63.2 fL (35.1-43.9); Red Blood Count 2.01 Miln/mm3 (4.50-5.90); White Blood Count 7.8 Thou/mm3 (3.8-10.6)
[2024-09-21 06:10] LABS: Hematocrit 18.7 % (41.0-53.0); Hemoglobin 6.6 g/dL (13.5-16.0); Platelet Count 79 Thou/mm3 (140-440)
[2024-09-21 06:22] LABS: Alanine Aminotransferase 24 U/L (10-49); Albumin, Serum 2.6 gm/dL (3.5-5.0); Albumin/Globulin Ratio 1.1 (1.2-2.2); Alkaline Phosphatase 148 U/L (46-116); Anion Gap 6 (7-16); Aspartate Amino Transferase 40 U/L (0-34); BUN/Creatinine Ratio 15 Ratio (12-20); Bilirubin,Total 3.8 mg/dL (0.3-1.2); Blood Urea Nitrogen 20 mg/dL (9-23); Calcium 8.4 mg/dL (8.3-10.6); Calcium (Corrected) 9.5 mg/dL (8.5-10.1); Carbon Dioxide 16.7 mMol/L (20.0-31.0); Cardiac Risk Estimate 3.1 RATIO (4.0-6.7); Chloride 100 mMol/L (98-107); Cholesterol 62 mg/dL (132-200); Creatinine (Component) 1.3 mg/dL (0.6-1.3); Estimated Creatinine Clearance 54.1 mL/min (>60); Globulin 2.3 gm/dL (2.3-3.5); Glucose 108 mg/dL (74-106); HDL Cholesterol 20 mg/dL (40-60); LDL Cholesterol,Calculated 31 mg/dL (0-130); Magnesium 1.8 mg/dL (1.6-2.6); Osmolality,Calculated 251 (275-295); Phosphorous 3.8 mg/dL (2.4-5.1); Potassium 4.1 mMol/L (3.4-5.1); Sodium 123 mMol/L (136-145); Thyroid Stimulating Hormone 1.88 uIU/mL (0.55-4.78); Total Protein 4.9 gm/dL (5.7-8.2); Triglycerides 56 mg/dL (30-150); eGFR > 60 See Note
[2024-09-21 06:31] LABS: Partial Thromboplastin Time 55.8 Seconds (22.0-36.0); Prothrombin Time 20.6 Seconds (9.0-12.2)
[2024-09-21] MEDS: MIDODRINE 5 MG TABLET PO ×3 (06:40→21:31)
[2024-09-21] MEDS: ALBUMIN HUMAN 25% IVPB 25 GM/100 ML BTL IV ×4 (06:41→20:28)
[2024-09-21 07:54] LABS: Hematocrit 18.9 % (41.0-53.0)
[2024-09-21 07:56] LABS: Hemoglobin 6.6 g/dL (13.5-16.0)
[2024-09-21 07:58] LABS: Slide Review Platelets confirmed
[2024-09-21] MEDS: HYDROcodone/APAP 5/325 TABLET 1 TAB PO ×3 (09:47→22:31)
[2024-09-21] MEDS: cefTRIAXone 2 GM in SODIUM CHLORIDE 0.9% (P) 50 ML IV (09:47)
[2024-09-21] MEDS: CITRIC ACID/SODIUM CITR 15 ML UDC (BICITRA) 30 ML PO ×2 (09:47→20:29)
[2024-09-21] MEDS: LACTULOSE SYRUP 20 GM/30 ML UDC 10 GM PO ×2 (09:47→20:28)
[2024-09-21] MEDS: PANTOPRAZOLE 40 MG TABLET PO (09:48)
[2024-09-21 10:29] LABS: Sodium 123 mMol/L (136-145)
--- NOTE | 2024-09-21 12:27 | ESPR_ITS ---
Documentation for date of: 09/21/24 Subjective Subjective Interval history: Patient seen at bedside. Pending paracentesis Patient's hemoglobin dropped to 6.6, will transfuse 1 unit PRBC. Will follow-up posttransfusion H&H. Will continue albumin and ceftriaxone Sodium increased from 118 to 126 yesterday on IV NS, patient was started on D5W, sodium down trended to 123. Will continue fluid restriction per nephrology Exam Vital Signs Temp Pulse Resp BP Pulse Ox O2 Del Method O2 Flow Rate 98.9 F 85 17 111/58 L 100 Room Air 0 09/21/24 11:48 09/21/24 11:48 09/21/24 11:48 09/21/24 11:48 09/21/24 11:48 09/21/24 08:00 09/21/24 11:48 Narrative Exam Physical Exam General: Awake and in no acute distress. Conversational and non-toxic appearing. HEENT: Normocephalic, atraumatic, mucous membranes moist. Heart: Regular rate and rhythm, no murmurs. Lungs: Clear to auscultation with no wheezing or crackles. Abdomen: Soft, distended, ascitic pattern, positive bowel sounds. Umbilical hernia noted. PleurX catheter intact with tenderness around site and discharge. Neurologic: Alert and oriented x3, no gross neurological deficit, and patient able to move all 4 extremities. Extremities: No edema. Skin: No rash or ecchymoses. Objective Labs 09/21/24 07:17 09/21/24 16:50 Labs: Laboratory Results - last 24 hr 09/20/24 09/20/24 09/20/24 06:43 12:41 14:21 WBC 19.1 H RBC 2.53 L Hgb 8.5 L Hct 23.9 L MCV 95 MCH 33.6 MCHC 35.6 RDW Std Deviation 64.7 H Plt Count 102 L Neut % (Auto) 80 Lymph % (Auto) 9 L [place] % (Auto) 10 Eos % (Auto) 1 Baso % (Auto) 0 Neut # (Auto) 15.2 H Lymph # (Auto) 1.7 [place] # (Auto) 1.9 H Eos # (Auto) 0.1 Baso # (Auto) 0.1 Immature Gran # (Auto) 0.18 H Absolute Nucleated RBC 0.00 Immature Gran % 1 H Nucleated RBC % 0 PT 18.9 H INR 1.8 H APTT 48.4 H D VBG pH 7.34 VBG pCO2 30 L VBG pO2 35 VBG O2 Sat (Sergio) 62 L VBG Base Excess -9 L Sodium 118 L* Potassium 5.6 H Chloride 97 L Carbon Dioxide 13.9 L* Anion Gap 7 BUN 19 Creatinine 1.3 Estim Creat Clear Calc 56.6 L eGFR > 60 BUN/Creatinine Ratio 15 Glucose 98 Calculated Osmolality 240 L Calcium 8.3 Corrected Calcium 9.6 Phosphorus Magnesium Total Bilirubin 5.3 H AST 62 H ALT 31 Alkaline Phosphatase 172 H Ammonia 75 H Total Protein 5.4 L Albumin 2.4 L Globulin 3.0 Albumin/Globulin Ratio 0.8 L Triglycerides Cholesterol LDL Cholesterol, Calc HDL Cholesterol Cholesterol/HDL Ratio TSH Ur Collection Type Urine Color Urine Clarity Urine pH Ur Specific [place] Urine Protein Urine Glucose (UA) Urine Ketones Urine Blood Urine Nitrite Urine Bilirubin Urine Urobilinogen (Auto) Ur Leukocyte Esterase Urine RBC Urine WBC Ur Squamous Epith Cells Urine Bacteria Hyaline Casts Ur Random Creatinine 226 H Ur Random Sodium < 10.0 L Ur Random Potassium 38 Ur Random Chloride < 20.0 L Urine Opiates Screen Urine Fentanyl Screen Ur Barbiturates Screen U Amphetamin/Meth Scrn U Benzodiazepines Scrn U Cocaine Metab Screen U Marijuana (THC) Screen Ethyl Alcohol < 10.0 Misc Test Result Blood Type Antibody Screen Crossmatch Blood Bank Wristband ID 09/20/24 09/20/24 09/21/24 18:14 21:26 01:10 WBC RBC Hgb Hct MCV MCH MCHC RDW Std Deviation Plt Count Neut % (Auto) Lymph % (Auto) [place] % (Auto) Eos % (Auto) Baso % (Auto) Neut # (Auto) Lymph # (Auto) [place] # (Auto) Eos # (Auto) Baso # (Auto) Immature Gran # (Auto) Absolute Nucleated RBC Immature Gran % Nucleated RBC % PT INR APTT VBG pH VBG pCO2 VBG pO2 VBG O2 Sat (Sergio) VBG Base Excess Sodium 126 L 124 L Potassium Chloride Carbon Dioxide Anion Gap BUN Creatinine Estim Creat Clear Calc eGFR BUN/Creatinine Ratio Glucose Calculated Osmolality Calcium Corrected Calcium Phosphorus Magnesium Total Bilirubin AST ALT Alkaline Phosphatase Ammonia Total Protein Albumin Globulin Albumin/Globulin Ratio Triglycerides Cholesterol LDL Cholesterol, Calc HDL Cholesterol Cholesterol/HDL Ratio TSH Ur Collection Type Clean Catch Urine Color Drk-Yellow A Urine Clarity Turbid A Urine pH 5.5 Ur Specific [place] 1.029 Urine Protein Trace Urine Glucose (UA) Negative Urine Ketones Negative Urine Blood Negative Urine Nitrite Negative Urine Bilirubin 1+ A Urine Urobilinogen (Auto) 4.0 Ur Leukocyte Esterase Negative Urine RBC 4 H Urine WBC 5 Ur Squamous Epith Cells 1 Urine Bacteria Rare Hyaline Casts 1 Ur Random Creatinine Ur Random Sodium Ur Random Potassium Ur Random Chloride Urine Opiates Screen Positive A Urine Fentanyl Screen Negative Ur Barbiturates Screen Negative U Amphetamin/Meth Scrn Negative U Benzodiazepines Scrn Negative U Cocaine Metab Screen Negative U Marijuana (THC) Screen Positive A Ethyl Alcohol Misc Test Result Blood Type Antibody Screen Crossmatch Blood Bank Wristband ID 09/21/24 09/21/24 09/21/24 05:00 07:17 10:11 WBC 7.8 D RBC 2.01 L Hgb 6.6 L* D 6.6 L* Hct 18.7 L* 18.9 L* MCV 93 MCH 32.8 MCHC 35.3 RDW Std Deviation 63.2 H Plt Count 79 L D Neut % (Auto) 68 Lymph % (Auto) 16 [place] % (Auto) 14 H Eos % (Auto) 1 Baso % (Auto) 1 Neut # (Auto) 5.3 Lymph # (Auto) 1.2 [place] # (Auto) 1.1 H Eos # (Auto) 0.1 Baso # (Auto) 0.0 Immature Gran # (Auto) 0.06 H Absolute Nucleated RBC 0.00 Immature Gran % 1 H Nucleated RBC % 0 PT 20.6 H INR 2.0 H APTT 55.8 H VBG pH VBG pCO2 VBG pO2 VBG O2 Sat (Sergio) VBG Base Excess Sodium 123 L 123 L Potassium 4.1 D Chloride 100 Carbon Dioxide 16.7 L Anion Gap 6 L BUN 20 Creatinine 1.3 Estim Creat Clear Calc 54.1 L eGFR > 60 BUN/Creatinine Ratio 15 Glucose 108 H Calculated Osmolality 251 L Calcium 8.4 Corrected Calcium 9.5 Phosphorus 3.8 Magnesium 1.8 Total Bilirubin 3.8 H D AST 40 H ALT 24 Alkaline Phosphatase 148 H D Ammonia Total Protein 4.9 L Albumin 2.6 L Globulin 2.3 Albumin/Globulin Ratio 1.1 L Triglycerides 56 Cholesterol 62 L LDL Cholesterol, Calc 31 HDL Cholesterol 20 L Cholesterol/HDL Ratio 3.1 L TSH 1.88 Ur Collection Type Urine Color Urine Clarity Urine pH Ur Specific [place] Urine Protein Urine Glucose (UA) Urine Ketones Urine Blood Urine Nitrite Urine Bilirubin Urine Urobilinogen (Auto) Ur Leukocyte Esterase Urine RBC Urine WBC Ur Squamous Epith Cells Urine Bacteria Hyaline Casts Ur Random Creatinine Ur Random Sodium Ur Random Potassium Ur Random Chloride Urine Opiates Screen Urine Fentanyl Screen Ur Barbiturates Screen U Amphetamin/Meth Scrn U Benzodiazepines Scrn U Cocaine Metab Screen U Marijuana (THC) Screen Ethyl Alcohol Misc Test Result Platelets confirmed Blood Type O Positive Antibody Screen NEGATIVE Crossmatch See Detail Blood Bank Wristband ID Yes ABG Interpretation ABG results: 09/20/24 14:21 VBG pH 7.34 VBG pCO2 30 L VBG pO2 35 VBG Base Excess -9 L Quality Measures Quality Measures none Assessment & Plan Assessment Current Active Medications: Generic Name Dose Route Start Last Admin Trade Name Freq PRN Reason Stop Dose Admin Acetaminophen 650 mg 09/20/24 23:40 Acetaminophen 325 Mg Tablet PO 10/20/24 15:21 Q6H PRN Pain (1-3) and Fever >101.5 Hydrocodone Bitart/Acetaminophen 1 tab 09/20/24 23:40 09/21/24 09:47 Hydrocodone/Apap 5/325 Tablet PO 09/25/24 23:20 1 tab Q6HR PRN Administration PAIN SCALE 4-10(Mod-Sev Citric Acid/Sodium Citrate 30 ml 09/21/24 09:00 09/21/24 09:47 Citric Acid/Sodium Citr 15 Ml Udc (Bicitra) PO 10/21/24 08:59 30 ml BID JOSELIN Administration Albumin Human 25 gm in 100 mls @ 100 mls/hr 09/20/24 17:00 09/21/24 07:41 Albuminar-25 Ivpb IV 09/23/24 16:59 Infused QID JOSELIN Infusion Ceftriaxone Sodium 2 gm/ 50 mls @ 100 mls/hr 09/20/24 17:15 09/21/24 09:47 Sodium Chloride IV 09/27/24 17:14 100 mls/hr QDAY JOSELIN Administration Dextrose 1,000 mls @ 50 mls/hr 09/20/24 22:15 09/21/24 00:29 D5w IV 50 mls/hr .Q20H JOSELIN Administration Lactulose 10 gm 09/20/24 21:00 09/21/24 09:47 Lactulose Syrup 20 Gm/30 Ml Udc PO 10/20/24 20:59 10 gm BID JOSELIN Administration Protocol Midodrine 5 mg 09/20/24 15:45 09/21/24 06:40 Midodrine 5 Mg Tablet PO 10/20/24 15:44 5 mg TID JOSELIN Administration Ondansetron HCl 4 mg 09/20/24 15:22 Ondansetron Inj 2 Mg/Ml Inj 2 Ml IV 10/20/24 15:21 Q6H PRN NAUSEA OR VOMITING Protocol Pantoprazole Sodium 40 mg 09/21/24 09:15 09/21/24 09:48 Pantoprazole 40 Mg Tablet PO 10/20/24 15:29 40 mg QDAY JOSELIN Administration Plan Assessment and Plan Summary:Mr. Henry is a 54-year-old male with history of end-stage liver disease secondary to alcohol use, decompensated liver cirrhosis, thrombocytopenia, esophageal varices and personal history of lung cancer who presented to [facility] with a chief complaint of hyponatremia. # Euvolemic hypoosmolar hyponatremia -Patient denies any dizziness, is alert oriented x 4. Patient does have history of decompensated liver failure, has distended abdomen ascitic pattern. CTAP shows prominent ascites. -Patient had ascitic fluid drainage earlier today in a.m., patient has weekly paracentesis has Pleurx catheter. -Patient sodium 118 in ED. Patient is on Lasix and spironolactone at home. -09/21: Patient was given NS yesterday sodium increased from 118 to 126 yesterday on IV NS, patient was started on D5W, sodium down trended to 123. Plan: -Fluid restriction 1500 cc -Consulted nephrology, appreciate recommendations -Sodium checks every 4 hours with goal correction of 4 to 6 mEq in 24 hours. -Hold home diuretics #Ascites #Tenderness around paracentesis catheter #?Spontaneous bacterial peritonitis # Leukocytosis -Patient was on hospice prior, admits to being on hospice currently, reports tenderness and discomfort around paracentesis catheter, at high risk of infection due to the catheter. -Patient does not have any abdominal pain, high suspicion of SBP due to underlying catheter for weekly paracentesis. Plan: -Continue albumin 25% 4 times daily for 3 days -Ceftriaxone 2 g/day -Paracentesis scheduled for today -Follow peritoneal fluid labs. # Metabolic acidosis with compensatory respiratory alkalosis -Patient's pCO2 13.9, VBG shows pCO2 30 -Patient's metabolic acidosis likely in setting of cirrhosis. -Patient was given bicarb x 50 mEq on admission Plan: -Monitor CMP in a.m. # Decompensated liver cirrhosis # Thrombocytopenia # History of esophageal gastric varices # History of GI bleed # Hypertension # Chronic normocytic anemia -Patient was recently admitted for GI bleed, had EGD with banding done, patient also had large internal hemorrhoids on colonoscopy had banding done. -Hemoglobin is stable, denies any blood in stool, denies any bloody emesis. -Patient is on midodrine 5 3 times daily at home, platelet count 102, coagulation panel PT 18.9, INR 1.8, APTT 48.4 on admission. Plan: -Patient's hemoglobin dropped likely in setting of IV fluids, will transfuse 1 unit PRBC -Monitor H&H posttransfusion. -Resumed home dose of midodrine 5 three times daily. -Started on lactulose 20 g twice daily DVT prophylaxis: SCDs GI prophylaxis: Protonix IV daily Diet: Low-sodium diet, fluid restriction 1500 cc Lines: Peripheral IV Code status: Full code Case discussed with Attending Dr. Gay. Tammy Brand PGY1 Attending Provider Attestation/Addendum I reviewed labs, imaging, EKG, home medications and prior available records. Face to face evaluation was performed by me. I have personally examined the patient and discussed assessment and plan with the IM team. I reviewed the resident note and agree with the plan with exceptions as below. Hyponatremia: Sodium increased to 123 from 118. Discussed with nephrology: Continue fluid restriction. Monitor BMP. Avoid rapid correction of sodium. Possible SBP: Continue IV ceftriaxone. Will send fluid for analysis. Acute anemia: New complication. Hemoglobin dropped to 6.6. No signs of active bleed however patient does have a history of liver disease. Will transfuse 1 unit of PRBC and repeat H&H. If hemoglobin continues to drop, will consult GI for endoscopy. Thrombocytopenia: Platelets dropped to 79. Likely in the setting of liver disease. Monitor platelets closely.
--- NOTE | 2024-09-21 12:29 | XR_ITS ---
Examination: Ultrasound-guided paracentesis Abdominal sonogram limited Date and time of exam: September 21, 2024 1432 hours INDICATIONS: Cirrhosis, increasing ascites and abdominal distention this week Informed consent provided. A timeout was completed verifying correct patient, procedure, site, positioning, and special adequate movement if applicable. Technique: Multiple sonographic images of the abdomen have been obtained. Appropriate area for paracentesis was marked. Local anesthesia is obtained with 1% lidocaine. Yueh catheter is successfully introduced. Findings: Abdominal sonographic images demonstrate sufficient ascitic fluid for paracentesis. After placing the Yueh catheter, 4150 cc of fluid were successfully removed. During and after completion of the procedure the patient appear in satisfactory and stable condition with no complications observed. Estimated blood loss 0 cc Impression: Abdominal ascites Successful ultrasound-guided paracentesis as described above
--- NOTE | 2024-09-21 14:06 | ESCONSULT_ITS ---
HPI Data of Consult Consult date: 09/22/24 Requesting Physician: Lindsey Lorenzo DO Admitting Provider: Ronny Esquivel DO Attending Provider: Evon Banegas DO Primary Care Provider: Francis Tsang MD Consult Narrative Reason for consult: Hyponatremia History of present illness: Mr. 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 Patient initially presented due to concern of dislodging paracentesis pleurx catheter, patient's sister at bedside reported that he was confused at home and possibly tugged on the catheter, does report increased redness and discomfort from around the catheter site. Patient did have paracentesis earlier this morning where adequate amount of fluid was removed, during workup in ED patient's sodium came back 118 and hospitalist team was consulted due to concern of hyponatremia. Patient denies any dizziness, is alert oriented x 4. Patient otherwise has no complaints and reports he is feeling fine. Patient denies any chest pain, shortness of breath and headache. CTAP in ED showed cirrhosis, prominent ascites and Pleurx drainage catheter in satisfactory position. Patient was given lactulose 40 g in ED, catheter was stitched in place in ED. Patient hyponatremia initially improved with fluid restriction to 126. Concern for overcorrection, patient was placed on D5W with hyponatremia trending down to 123. Nephrology consulted for closer management patient's hyponatremia. Patient seen and examined on the floors. Patient resting comfortably in bed. Patient appeared clinically hypovolemic, dry: Dry mucous membranes, no edema, lungs clear to auscultation. Patient did have notable ascites with abdominal distention. Suspect intravascular depletion, patient receiving albumin. Sodium remained at 123. BUN 20, creatinine 1.3, eGFR >60. Urine sodium <10. Plan to resume fluid restriction, monitor sodium levels. cc:: cc: Lindsey Lorenzo DO Review of Systems Review of Systems Systems Reviewed: All systems reviewed, normal except as documented Past Medical History Past Medical History NEUROLOGIC: Negative Neurological Disorders or Seizures CARDIAC: Positive Hypertension and Hypotension; Negative Cardiac Disorders, Hypercholesterolemia or Congestive Heart Failure RESPIRATORY: Positive Pneumonia; Negative Chronic Obstructive Pulmonary Disease (COPD) or Asthma GASTROINTESTINAL: Positive Hepatitis, Cirrhosis, Gastrointestinal Bleed, Esophageal Varices, Ulcer, Hiatal Hernia, Hemorrhoids and Gastroesophageal Reflux Disease GENITOURINARY: Positive Genitourinary Disorders; Negative Renal Disease MUSCULOSKELETAL: Negative Musculoskeletal Disorders ENDOCRINE: Negative Diabetes Mellitus Type 1 or Diabetes Mellitus Type 2 HEMATOLOGIC: Positive Anemia; Negative Sickle Cell Disease PSYCHO/SOCIAL: Positive Recreational Drug Use; Negative Anxiety OTHER HISTORY: Positive Falls, Blood Transfusions, Cancer and Lung Cancer; Negative Blood Transfusion Reaction or Anesthesia Reactions Surgical History SURGICAL: Negative Cardiac Surgery Social History SMOKING STATUS: Never smoker SUBSTANCE USE: marijuana Past Medical History Comments PMH COMMENT: PMH: Positive for Decompensated Cirrhosis, w/ ascites Secondary to Alcohol Use Disorder End State Liver Disease Thrombocytopenia Normocytic Anemia Hypotension and personal history of lung cancer PSHx: Pleurx catheter insertion with weekly paracentesis Allergies: Peanut Social history: Patient lives with mother at home -Smoking: Positive for smoking in past -Alcohol Use: Positive for alcohol use in past -Illicit Drug Use: Reports marijuana use Family History: Denies any significant family history Exam Vital Signs Temp Pulse Resp BP Pulse Ox O2 Del Method O2 Flow Rate 98.8 F 107 H 20 111/71 100 Room Air 0 09/22/24 11:27 09/22/24 13:35 09/22/24 11:27 09/22/24 13:35 09/22/24 11:27 09/22/24 11:27 09/21/24 20:00 Narrative Exam PE: Gen: Well-developed and well-nourished. HEENT: NCAT, PERRLA, EOMI, anicteric conjunctivae. Dry mucous membranes. CVS: normal S1 and S2. RRR. No M/R/G. Resp: CTA B/L. No rhonchi, rales, crackles or wheezing. Abd: Abdominal distention, ascites. Pleurx catheter in right lower quadrant, tender. MSK: Good ROM in BUE & BLE. No edema or rash. Neuro: CN II-XII grossly intact. Strength 5/5 in BUE & BLE. Alert and oriented x3. Psych: appropriate mood and affect. Results Labs 09/22/24 04:53 09/22/24 17:55 Labs: Short CBC 09/21/24 09/22/24 Range/Units 18:27 04:53 WBC 5.1 (3.8-10.6) Thou/mm3 Hgb 8.3 L D 8.5 L (13.5-16.0) g/dL Hct 23.6 L 23.9 L (41.0-53.0) % Plt Count 77 L (140-440) Thou/mm3 BMP 09/21/24 09/21/24 09/21/24 13:23 16:50 21:15 Sodium 123 L 124 L 128 L Potassium Chloride Carbon Dioxide BUN Creatinine Glucose Calcium 09/22/24 09/22/24 09/22/24 00:30 04:53 09:09 Sodium 127 L 125 L 126 L Potassium 4.0 3.9 Chloride 99 Carbon Dioxide 18.1 L BUN 16 Creatinine 1.0 Glucose 121 H Calcium 8.9 Liver Function 09/22/24 Range/Units 04:53 Total Bilirubin 5.0 H D (0.3-1.2) mg/dL AST 45 H (0-34) U/L ALT 25 (10-49) U/L Alkaline Phosphatase 138 H (46-116) U/L Albumin 3.4 L D (3.5-5.0) gm/dL ABG Interpretation ABG results: 09/20/24 14:21 VBG pH 7.34 VBG pCO2 30 L VBG pO2 35 VBG Base Excess -9 L Quality Measures Quality Measures VTE prophylaxis Medications Home Medications and Allergies Home Medications ?Medication ?Instructions ?Recorded ?Confirmed ?Type furosemide 20 mg tablet 20 mg PO QDAY 10/22/21 09/21/24 History ferrous sulfate 325 mg (65 mg 1 tab PO BID 07/12/22 09/21/24 History iron) tablet trazodone 100 mg tablet 100 mg PO QHSPRN PRN Sleep 07/12/22 09/21/24 History pantoprazole 40 mg tablet,delayed 40 mg PO BID 04/01/24 09/21/24 History release potassium chloride 10 mEq 10 meq PO QDAY 04/01/24 09/21/24 History tablet,extended release(part/cryst) dexamethasone 4 mg tablet 8 mg PO BID 08/20/24 09/21/24 History hydrocodone 5 mg-acetaminophen 325 1 tab PO Q6H PRN Pain 08/20/24 09/20/24 History mg tablet spironolactone 100 mg tablet 100 mg PO BID 08/20/24 09/21/24 History midodrine 5 mg tablet 5 mg PO TID PRN Hypotension 09/06/24 09/21/24 History melatonin 3 mg tablet 3 mg PO HS PRN Sleep 09/21/24 09/21/24 History omeprazole 10 mg capsule,delayed 10 mg PO QDAY 09/21/24 09/21/24 History release Allergies Allergy/AdvReac Type Severity Reaction Status Date / Time peanut Allergy Severe Hives Verified 09/20/24 11:10 Visit Medications Acetaminophen (Acetaminophen 325 Mg Tablet) 650 mg PO Q6H PRN PRN Reason: Pain (1-3) and Fever >101.5 Stop: 10/20/24 15:21 Hydrocodone Bitart/Acetaminophen (Hydrocodone/Apap 5/325 Tablet) 1 tab PO Q6HR PRN PRN Reason: PAIN SCALE 4-10(Mod-Sev Stop: 09/25/24 23:20 Last Admin: 09/22/24 12:20 Dose: 1 tab Citric Acid/Sodium Citrate (Citric Acid/Sodium Citr 15 Ml Udc (Bicitra)) 30 ml PO BID [facility] Stop: 10/21/24 08:59 Last Admin: 09/22/24 09:28 Dose: 30 ml Albumin Human (Albuminar-25 Ivpb) 25 gm in 100 mls @ 100 mls/hr IV QID [facility] Stop: 09/23/24 16:59 Last Admin: 09/22/24 12:21 Dose: 100 mls/hr Ceftriaxone Sodium 2 gm/ (Sodium Chloride) 50 mls @ 100 mls/hr IV QDAY [facility] Stop: 09/27/24 17:14 Last Admin: 09/22/24 09:28 Dose: 100 mls/hr Dextrose (D5w) 1,000 mls @ 50 mls/hr IV .Q20H [facility] Last Admin: 09/21/24 00:29 Dose: 50 mls/hr Lactulose (Lactulose Syrup 20 Gm/30 Ml Udc) 10 gm PO BID [facility]; Protocol Stop: 10/20/24 20:59 Last Admin: 09/22/24 09:28 Dose: 10 gm Midodrine (Midodrine 5 Mg Tablet) 5 mg PO TID [facility] Stop: 10/20/24 15:44 Last Admin: 09/22/24 13:35 Dose: 5 mg Ondansetron HCl (Ondansetron Inj 2 Mg/Ml Inj 2 Ml) 4 mg IV Q6H PRN; Protocol PRN Reason: NAUSEA OR VOMITING Stop: 10/20/24 15:21 Pantoprazole Sodium (Pantoprazole 40 Mg Tablet) 40 mg PO QDAY [facility] Stop: 10/20/24 15:29 Last Admin: 09/22/24 09:29 Dose: 40 mg Discontinued Medications Acetaminophen (Acetaminophen 325 Mg Tablet) 650 mg PO Q6H PRN PRN Reason: Pain and Fever >101.5 Stop: 10/20/24 15:21 Hydrocodone Bitart/Acetaminophen (Hydrocodone/Apap 5/325 Tablet) 1 tab PO Q6HR PRN PRN Reason: PAIN 1-6 (mild-mod Stop: 09/25/24 23:20 Hydrocodone Bitart/Acetaminophen (Hydrocodone/Apap 5/325 Tablet) 1 tab PO X1 ONE Stop: 09/22/24 01:58 Last Admin: 09/22/24 02:04 Dose: 1 tab Ceftriaxone Sodium/Dextrose (Rocephin/D5w 1gm Iv Premix) 50 mls @ 100 mls/hr IV QDAY [facility] Stop: 09/27/24 15:29 Last Admin: 09/20/24 17:54 Dose: Not Given Albumin Human (Albuminar-25 Ivpb) 25 gm in 100 mls @ 100 mls/hr IV QDAY [facility] Stop: 09/23/24 15:51 Last Admin: 09/20/24 17:54 Dose: Not Given Albumin Human (Albuminar-25 Ivpb) 25 gm in 100 mls @ 100 mls/hr IV TID [facility] Stop: 09/23/24 21:59 Sodium Chloride (Ns) 1,000 mls @ 70 mls/hr IV .[id number] ONE Stop: 09/21/24 10:06 Last Infusion: 09/21/24 12:26 Dose: Infused Lactulose (Lactulose Syrup 20 Gm/30 Ml Udc) 40 gm PO X1 ONE; Protocol Stop: 09/20/24 13:18 Last Admin: 09/20/24 15:06 Dose: 40 gm Pantoprazole Sodium (Pantoprazole Inj 40 Mg Vial) 40 mg IVP QDAY [facility] Stop: 10/20/24 15:29 Last Admin: 09/20/24 16:25 Dose: 40 mg Sodium Bicarbonate (Sodium Bicarb Inj 8.4% 1 Meq/Ml Vial 50 Ml) 50 meq IV X1 ONE Stop: 09/20/24 15:41 Last Admin: 09/20/24 16:30 Dose: 50 meq Assessment & Plan Plan 54-year-old male with history of end-stage liver disease secondary to alcohol use, decompensated liver cirrhosis, thrombocytopenia, esophageal varices and personal history of lung cancer who presented to [facility] with a chief complaint of hyponatremia. # Hypovolemic hypoosmolar hyponatremia Patient denies any dizziness, is alert oriented x 4. Patient does have history of decompensated liver failure, has distended abdomen ascitic pattern. CTAP shows prominent ascites. Patient had ascitic fluid drainage before admission. Patient has weekly paracentesis has Pleurx catheter. Patient sodium 118 in ED. Patient is on Lasix and spironolactone at home. Patient sodium increased to 126 with fluid restriction, patient started D5W due to concern for overcorrection. D5W stopped and sodium reached 123. Urine sodium <10. Plan: -Fluid restriction 1500 cc -Sodium checks every 4 hours -Hold home diuretics #Ascites #Tenderness around Pleurx catheter #?Spontaneous bacterial peritonitis # Leukocytosis # Metabolic acidosis with compensatory respiratory alkalosis # Decompensated liver cirrhosis # Thrombocytopenia # History of esophageal gastric varices # History of GI bleed # Hypertension # Chronic normocytic anemia Management as per primary team. DVT prophylaxis: SCDs GI prophylaxis: Protonix IV daily Diet: Low-sodium diet, fluid restriction 1500 cc Lines: Peripheral IV Code status: Full code Thank you for allowing me to participate in the care of this patient. Plan of care discussed with Dr. Banegas. Burton Perales MD PGY-1 Attending Provider Attestation/Addendum Patient seen and examined with resident physician Dr. Perales. Note reviewed, agree with findings and recommendations. Patient clinically looks rather hypovolemic. Suggested to drink fluids. Did receive normal saline. Sodium tad better. Will monitor closely. He has ascites secondary to cirrhosis. Thank you Dr. Lorenzo for allowing me to participate in the care of Mr. Ferreira
[2024-09-21 14:07] LABS: Sodium 123 mMol/L (136-145)
[2024-09-21 15:50] LABS: Peritoneal Fluid WBC 697 /cmm
[2024-09-21 15:57] LABS: Albumin, Peritoneal Fluid < 1.0 gm/dL; Amylase,Peritoneal Fluid 32 IU/L; Glucose,Peritoneal Fluid 117 mg/dL; LDH,Peritoneal Fluid 51 IU/L; Protein Total,Peritoneal Fluid < 2 g/dL
[2024-09-21 16:40] LABS: Peritoneal Fluid Appearance Hazy; Peritoneal Fluid Color Yellow; Peritoneal Fluid Polynuclear 48 %; RBC,Peritoneal Fluid 396 /cmm
[2024-09-21 16:41] LABS: Peritoneal Fluid Mononuclear 52 %
[2024-09-21 17:10] LABS: Sodium 124 mMol/L (136-145)
[2024-09-21 18:46] LABS: Hematocrit 23.6 % (41.0-53.0); Hemoglobin 8.3 g/dL (13.5-16.0)
--- NOTE | 2024-09-21 21:52 | PC.NURSE ---
clear fluid leaking noted on another site above the tube. MD was informed and saw the patient. Per MD, monitor leakage and put dressing on area of leakage. In no apparent distress.
[2024-09-21 22:09] LABS: Sodium 128 mMol/L (136-145)
[2024-09-22] VITALS (13 sets, daily range): BP systolic 97–112; BP diastolic 61–72; PULSE 18–108; RESP 16–98; TEMP 36.3–37.6; O2SAT 97–100
--- NOTE | 2024-09-22 00:11 | PC.NURSE ---
tool repair technician had informed this magazine writer of the peaked t wave on leads I and AVL. MD was made aware, orders for EKG and Potassium received and carried out. EKG showed Sinus rhythm, normal ECG. Potassium level of 4.0. MD informed of results. Patient is in no apparent distress.
[2024-09-22 01:06] LABS: Sodium 127 mMol/L (136-145)
[2024-09-22] MEDS: HYDROcodone/APAP 5/325 TABLET 1 TAB PO ×4 (02:04→18:42)
[2024-09-22] MEDS: ALBUMIN HUMAN 25% IVPB 25 GM/100 ML BTL IV ×4 (05:24→20:33)
[2024-09-22 05:25] LABS: Basophils % (Auto) 0 % (0-2.5); Eosinophils % (Auto) 1 % (0-10); Hematocrit 23.9 % (41.0-53.0); Immature Granulocytes % (Auto) 1 % (0-0); Mean Corpuscular Hemoglobin 32.7 pg (25.0-35.0); Monocytes # (Auto) 0.5 Thou/mm3 (0.0-0.8); Monocytes % (Auto) 9 % (0-12); Nucleated Red Blood Cell % 0 /100 WBC (0)
[2024-09-22] MEDS: MIDODRINE 5 MG TABLET PO ×3 (05:25→21:28)
[2024-09-22 05:27] LABS: Immature Granulocytes Auto 0.05 Thou/mm3 (0.00-0.00); Lymphocytes # (Auto) 0.8 Thou/mm3 (1.0-4.8); Lymphocytes % (Auto) 16 % (10-50); Mean Corpuscular HGB Conc 35.6 g/dl (31.0-37.0); Mean Corpuscular Volume 92 fL (80-100); Neutrophils # (Auto) 3.8 Thou/mm3 (1.8-7.7); Neutrophils % (Auto) 73 % (37-80); RDW Standard Deviation 60.6 fL (35.1-43.9); White Blood Count 5.1 Thou/mm3 (3.8-10.6)
[2024-09-22 05:28] LABS: Hemoglobin 8.5 g/dL (13.5-16.0); Platelet Count 77 Thou/mm3 (140-440)
[2024-09-22 06:03] LABS: INR 2.2 (0.9-1.3); Partial Thromboplastin Time 56.7 Seconds (22.0-36.0); Prothrombin Time 22.4 Seconds (9.0-12.2)
[2024-09-22 06:18] LABS: Slide Review Platelets confirmed
[2024-09-22 06:41] LABS: Alanine Aminotransferase 25 U/L (10-49); Albumin, Serum 3.4 gm/dL (3.5-5.0); Albumin/Globulin Ratio 1.5 (1.2-2.2); Alkaline Phosphatase 138 U/L (46-116); Anion Gap 8 (7-16); Aspartate Amino Transferase 45 U/L (0-34); BUN/Creatinine Ratio 16 Ratio (12-20); Blood Urea Nitrogen 16 mg/dL (9-23); Calcium 8.9 mg/dL (8.3-10.6); Calcium (Corrected) 9.4 mg/dL (8.5-10.1); Carbon Dioxide 18.1 mMol/L (20.0-31.0); Chloride 99 mMol/L (98-107); Estimated Creatinine Clearance 70.4 mL/min (>60); Globulin 2.2 gm/dL (2.3-3.5); Glucose 121 mg/dL (74-106); Magnesium 1.7 mg/dL (1.6-2.6); Osmolality,Calculated 253 (275-295); Potassium 3.9 mMol/L (3.4-5.1); Sodium 125 mMol/L (136-145); Total Protein 5.6 gm/dL (5.7-8.2); eGFR > 60 See Note
[2024-09-22] MEDS: LACTULOSE SYRUP 20 GM/30 ML UDC 10 GM PO ×2 (09:28→20:33)
[2024-09-22] MEDS: CITRIC ACID/SODIUM CITR 15 ML UDC (BICITRA) 30 ML PO ×2 (09:28→20:33)
[2024-09-22] MEDS: cefTRIAXone 2 GM in SODIUM CHLORIDE 0.9% (P) 50 ML IV (09:28)
[2024-09-22] MEDS: PANTOPRAZOLE 40 MG TABLET PO (09:29)
[2024-09-22 09:51] LABS: Sodium 126 mMol/L (136-145)
--- NOTE | 2024-09-22 10:56 | PC.SS ---
Follow up note: Pt is established with [facility] prior to being hospitalized. Patient's request is to continue with [facility] at dc. SS has spoken to Josie Almaraz at [facility] who explained they require Hospice referral to resume services. Pt will return home upon dc. Cultures are pending.
--- NOTE | 2024-09-22 14:06 | PD.RESPRO ---
Documentation for date of: 09/22/24 Subjective Subjective Interval history: Patient seen at bedside. Patient complains of abdominal tenderness. Peritoneal culture pending. Patient is on IV ceftriaxone and albumin for SBP treatment. Complains of discharge around catheter site. Wound care as needed around site. Referred to wound care. Will continue to monitor patient, denies any hematemesis hematuria and blood in stool hemoglobin stable. Exam Vital Signs Temp Pulse Resp BP Pulse Ox O2 Del Method O2 Flow Rate 98.8 F 107 H 20 111/71 100 Room Air 0 09/22/24 11:27 09/22/24 13:35 09/22/24 11:27 09/22/24 13:35 09/22/24 11:27 09/22/24 11:09/21/24 20:00 Narrative Exam Physical Exam General: Awake and in no acute distress. Conversational and non-toxic appearing. HEENT: Normocephalic, atraumatic, mucous membranes moist. Heart: Regular rate and rhythm, no murmurs. Lungs: Clear to auscultation with no wheezing or crackles. Abdomen: Soft, distended, ascitic pattern, tenderness noted in epigastrium and right upper quadrant, positive bowel sounds. Umbilical hernia noted. PleurX catheter intact with tenderness around site and discharge. Neurologic: Alert and oriented x3, no gross neurological deficit, and patient able to move all 4 extremities. Extremities: No edema. Skin: No rash or ecchymoses. Objective Labs 09/23/24 05:12 09/23/24 09:45 Labs: Laboratory Results - last 24 hr 09/21/24 09/21/24 09/21/24 07:17 13:23 14:10 WBC RBC Hgb Hct MCV MCH MCHC RDW Std Deviation Plt Count Neut % (Auto) Lymph % (Auto) [place] % (Auto) Eos % (Auto) Baso % (Auto) Neut # (Auto) Lymph # (Auto) [place] # (Auto) Eos # (Auto) Baso # (Auto) Immature Gran # (Auto) Absolute Nucleated RBC Immature Gran % Nucleated RBC % PT INR APTT Sodium 123 L Potassium Chloride Carbon Dioxide Anion Gap BUN Creatinine Estim Creat Clear Calc eGFR BUN/Creatinine Ratio Glucose Calculated Osmolality Calcium Corrected Calcium Magnesium Total Bilirubin AST ALT Alkaline Phosphatase Total Protein Albumin Globulin Albumin/Globulin Ratio Peritoneal Color Yellow Peritoneal Appearance Hazy Peritoneal WBC 697 Peritoneal RBC 396 Periton Polynucl WBCs 48 Periton Mononucl WBCs 52 Peritoneal Tot Protein < 2 Peritoneal Albumin < 1.0 Peritoneal LDH 51 Peritoneal Glucose 117 Peritoneal Amylase 32 Misc Test Result Crossmatch See Detail 09/21/24 09/21/24 09/21/24 16:50 18:27 21:15 WBC RBC Hgb 8.3 L D Hct 23.6 L MCV MCH MCHC RDW Std Deviation Plt Count Neut % (Auto) Lymph % (Auto) [place] % (Auto) Eos % (Auto) Baso % (Auto) Neut # (Auto) Lymph # (Auto) [place] # (Auto) Eos # (Auto) Baso # (Auto) Immature Gran # (Auto) Absolute Nucleated RBC Immature Gran % Nucleated RBC % PT INR APTT Sodium 124 L 128 L Potassium Chloride Carbon Dioxide Anion Gap BUN Creatinine Estim Creat Clear Calc eGFR BUN/Creatinine Ratio Glucose Calculated Osmolality Calcium Corrected Calcium Magnesium Total Bilirubin AST ALT Alkaline Phosphatase Total Protein Albumin Globulin Albumin/Globulin Ratio Peritoneal Color Peritoneal Appearance Peritoneal WBC Peritoneal RBC Periton Polynucl WBCs Periton Mononucl WBCs Peritoneal Tot Protein Peritoneal Albumin Peritoneal LDH Peritoneal Glucose Peritoneal Amylase Misc Test Result Crossmatch 09/22/24 09/22/24 09/22/24 00:30 04:53 09:09 WBC 5.1 RBC 2.60 L Hgb 8.5 L Hct 23.9 L MCV 92 MCH 32.7 MCHC 35.6 RDW Std Deviation 60.6 H Plt Count 77 L Neut % (Auto) 73 Lymph % (Auto) 16 [place] % (Auto) 9 Eos % (Auto) 1 Baso % (Auto) 0 Neut # (Auto) 3.8 Lymph # (Auto) 0.8 L [place] # (Auto) 0.5 Eos # (Auto) 0.0 Baso # (Auto) 0.0 Immature Gran # (Auto) 0.05 H Absolute Nucleated RBC 0.00 Immature Gran % 1 H Nucleated RBC % 0 PT 22.4 H INR 2.2 H APTT 56.7 H Sodium 127 L 125 L 126 L Potassium 4.0 3.9 Chloride 99 Carbon Dioxide 18.1 L Anion Gap 8 BUN 16 Creatinine 1.0 Estim Creat Clear Calc 70.4 eGFR > 60 BUN/Creatinine Ratio 16 Glucose 121 H Calculated Osmolality 253 L Calcium 8.9 Corrected Calcium 9.4 Magnesium 1.7 Total Bilirubin 5.0 H D AST 45 H ALT 25 Alkaline Phosphatase 138 H Total Protein 5.6 L Albumin 3.4 L D Globulin 2.2 L Albumin/Globulin Ratio 1.5 Peritoneal Color Peritoneal Appearance Peritoneal WBC Peritoneal RBC Periton Polynucl WBCs Periton Mononucl WBCs Peritoneal Tot Protein Peritoneal Albumin Peritoneal LDH Peritoneal Glucose Peritoneal Amylase Misc Test Result Platelets confirmed Crossmatch ABG Interpretation ABG results: 09/20/24 14:21 VBG pH 7.34 VBG pCO2 30 L VBG pO2 35 VBG Base Excess -9 L Quality Measures Quality Measures none Assessment & Plan Assessment Current Active Medications: Generic Name Dose Route Start Last Admin Trade Name Freq PRN Reason Stop Dose Admin Acetaminophen 650 mg 09/20/24 23:40 Acetaminophen 325 Mg Tablet PO 10/20/24 15:21 Q6H PRN Pain (1-3) and Fever >101.5 Hydrocodone Bitart/Acetaminophen 1 tab 09/20/24 23:40 09/22/24 12:20 Hydrocodone/Apap 5/325 Tablet PO 09/25/24 23:20 1 tab Q6HR PRN Administration PAIN SCALE 4-10(Mod-Sev Citric Acid/Sodium Citrate 30 ml 09/21/24 09:00 09/22/24 09:28 Citric Acid/Sodium Citr 15 Ml Udc (Bicitra) PO 10/21/24 08:59 30 ml BID JOSELIN Administration Albumin Human 25 gm in 100 mls @ 100 mls/hr 09/20/24 17:00 09/22/24 12:21 Albuminar-25 Ivpb IV 09/23/24 16:59 100 mls/hr QID JOSELIN Administration Ceftriaxone Sodium 2 gm/ 50 mls @ 100 mls/hr 09/20/24 17:15 09/22/24 09:28 Sodium Chloride IV 09/27/24 17:14 100 mls/hr QDAY JOSELIN Administration Dextrose 1,000 mls @ 50 mls/hr 09/20/24 22:15 09/21/24 00:29 D5w IV 50 mls/hr .Q20H JOSELIN Administration Lactulose 10 gm 09/20/24 21:00 09/22/24 09:28 Lactulose Syrup 20 Gm/30 Ml Udc PO 10/20/24 20:59 10 gm BID JOSELIN Administration Protocol Midodrine 5 mg 09/20/24 15:45 09/22/24 13:35 Midodrine 5 Mg Tablet PO 10/20/24 15:44 5 mg TID JOSELIN Administration Ondansetron HCl 4 mg 09/20/24 15:22 Ondansetron Inj 2 Mg/Ml Inj 2 Ml IV 10/20/24 15:21 Q6H PRN NAUSEA OR VOMITING Protocol Pantoprazole Sodium 40 mg 09/21/24 09:15 09/22/24 09:29 Pantoprazole 40 Mg Tablet PO 10/20/24 15:29 40 mg QDAY JOSELIN Administration Plan Assessment and Plan Summary:Mr. 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 -Patient does not have any abdominal pain, high suspicion of SBP due to underlying catheter for weekly paracentesis. -Peritoneal fluid (09/22) color yellow, appearance hazy, WBC 697, RBC 396, polynuclear WBCs 48%, mononuclear WBC 52%, peritoneal total protein less than 2, peritoneal albumin less than 1, peritoneal LDH 51, peritoneal glucose 117, peritoneal amylase 32. Plan: -Continue albumin 25% 4 times daily for 3 days -Continue ceftriaxone 2 g/day -Follow peritoneal fluid culture. -Paracentesis scheduled for tomorrow -Will obtain peritoneal fluid labs tomorrow. # Euvolemic hypoosmolar hyponatremia -Patient denies any dizziness, is alert oriented x 4. Patient does have history of decompensated liver failure, has distended abdomen ascitic pattern. CTAP shows prominent ascites. -Patient had ascitic fluid drainage earlier today in a.m., patient has weekly paracentesis has Pleurx catheter. -Patient sodium 118 in ED. Patient is on Lasix and spironolactone at home. Plan: -Fluid restriction 1500 cc -Patient on sodium citrate twice daily -Consulted nephrology, appreciate recommendations -Sodium checks every 4 hours with goal correction of 4 to 6 mEq in 24 hours. -Hold home diuretics # Decompensated liver cirrhosis # Thrombocytopenia # History of esophageal gastric varices # History of GI bleed # Hypertension # Chronic normocytic anemia -Patient was recently admitted for GI bleed, had EGD with banding done, patient also had large internal hemorrhoids on colonoscopy had banding done. -Hemoglobin is stable, denies any blood in stool, denies any bloody emesis. -Patient is on midodrine 5 3 times daily at home, platelet count 102, coagulation panel PT 18.9, INR 1.8, APTT 48.4 on admission. -Patient was transfused 1 unit PRBC -09/21 Plan: -Patient's hemoglobin dropped likely in setting of IV fluids. -Monitor H&H posttransfusion. -Resumed home dose of midodrine 5 three times daily. -Started on lactulose 20 g twice daily # Metabolic acidosis with compensatory respiratory alkalosis, resolved -Patient's pCO2 13.9, VBG shows pCO2 30 -Patient's metabolic acidosis likely in setting of cirrhosis. -Patient was given bicarb x 50 mEq on admission Plan: -Monitor CMP in a.m. DVT prophylaxis: SCDs GI prophylaxis: Protonix IV daily Diet: Low-sodium diet, fluid restriction 1500 cc Lines: Peripheral IV Code status: Full code Case discussed with Attending Dr. Lorenzo. Tammy Brand PGY1 Attending Provider Attestation/Addendum Lindsey Perez, , attest that I was physically present for the izquierdo portions of the service and evaluated the patient with the resident and I reviewed and discussed the case with the resident and agree with the resident's findings and plans of care as documented above Patient seen and evaluated this AM. He states he is feeling improved, but continues to have mild tenderness on palpation in his RUQ. Ascitic fluid is consistent with SBP. Patient has been on rocephin for 2 days. Will obtain fluid in AM to monitor response to antibiotic therapy. If worsening, consider removal of pleurX catheter. He remains hyponatremic, nephrology following. Diuretics held and fluid restricted. Continue to monitor sodium level
--- NOTE | 2024-09-22 14:30 | ESPR_ITS ---
Documentation for date of: 09/22/24 Subjective Subjective Interval history: Mr. Henry is a 54-year-old male with history of end-stage liver 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 Patient initially presented due to concern of dislodging paracentesis pleurx catheter, patient's sister at bedside reported that he was confused at home and possibly tugged on the catheter, does report increased redness and discomfort from around the catheter site. Patient did have paracentesis earlier this morning where adequate amount of fluid was removed, during workup in ED patient's sodium came back 118 and hospitalist team was consulted due to concern of hyponatremia. Patient denies any dizziness, is alert oriented x 4. Patient otherwise has no complaints and reports he is feeling fine. Patient denies any chest pain, shortness of breath and headache. CTAP in ED showed cirrhosis, prominent ascites and Pleurx drainage catheter in satisfactory position. Patient was given lactulose 40 g in ED, catheter was stitched in place in ED. Patient hyponatremia initially improved with fluid restriction to 126. Concern for overcorrection, patient was placed on D5W with hyponatremia trending down to 123. Nephrology consulted for closer management patient's hyponatremia. Patient seen and examined on the floors. Patient resting comfortably in bed. Patient appeared clinically hypovolemic, dry: Dry mucous membranes, no edema, lungs clear to auscultation. Patient did have notable ascites with abdominal distention. Suspect intravascular depletion, patient receiving albumin. Sodium remained at 123. BUN 20, creatinine 1.3, eGFR >60. Urine sodium <10. Plan to resume fluid restriction, monitor sodium levels. 09/22: Patient seen and examined in floors, resting comfortable in bed. Condition largely unchanged from yesterday. Dry mucous membranes, no edema, lungs clear to auscultation, notable ascites and abdominal distention. Sodium increased to 128, currently 126. BUN 16, creatinine 1.0, eGFR >60. Recommend continuing fluid restriction. Exam Vital Signs Temp Pulse Resp BP Pulse Ox O2 Del Method O2 Flow Rate 98.8 F 107 H 20 111/71 100 Room Air 0 09/22/24 11:27 09/22/24 13:35 09/22/24 11:27 09/22/24 13:35 09/22/24 11:27 09/22/24 11:27 09/21/24 20:00 Narrative Exam PE: Gen: Well-developed and well-nourished. HEENT: NCAT, PERRLA, EOMI, anicteric conjunctivae. Dry mucous membranes. CVS: normal S1 and S2. RRR. No M/R/G. Resp: CTA B/L. No rhonchi, rales, crackles or wheezing. Abd: Abdominal distention, ascites. Pleurx catheter in right lower quadrant, tender. MSK: Good ROM in BUE & BLE. No edema or rash. Neuro: CN II-XII grossly intact. Strength 5/5 in BUE & BLE. Alert and oriented x3. Psych: appropriate mood and affect. Objective Labs 09/23/24 05:12 09/23/24 17:32 Labs: Laboratory Results - last 24 hr 09/21/24 09/21/24 09/21/24 14:10 16:50 18:27 WBC RBC Hgb 8.3 L D Hct 23.6 L MCV MCH MCHC RDW Std Deviation Plt Count Neut % (Auto) Lymph % (Auto) [place] % (Auto) Eos % (Auto) Baso % (Auto) Neut # (Auto) Lymph # (Auto) [place] # (Auto) Eos # (Auto) Baso # (Auto) Immature Gran # (Auto) Absolute Nucleated RBC Immature Gran % Nucleated RBC % PT INR APTT Sodium 124 L Potassium Chloride Carbon Dioxide Anion Gap BUN Creatinine Estim Creat Clear Calc eGFR BUN/Creatinine Ratio Glucose Calculated Osmolality Calcium Corrected Calcium Magnesium Total Bilirubin AST ALT Alkaline Phosphatase Total Protein Albumin Globulin Albumin/Globulin Ratio Peritoneal Color Yellow Peritoneal Appearance Hazy Peritoneal WBC 697 Peritoneal RBC 396 Periton Polynucl WBCs 48 Periton Mononucl WBCs 52 Peritoneal Tot Protein < 2 Peritoneal Albumin < 1.0 Peritoneal LDH 51 Peritoneal Glucose 117 Peritoneal Amylase 32 Misc Test Result 09/21/24 09/22/24 09/22/24 21:15 00:30 04:53 WBC 5.1 RBC 2.60 L Hgb 8.5 L Hct 23.9 L MCV 92 MCH 32.7 MCHC 35.6 RDW Std Deviation 60.6 H Plt Count 77 L Neut % (Auto) 73 Lymph % (Auto) 16 [place] % (Auto) 9 Eos % (Auto) 1 Baso % (Auto) 0 Neut # (Auto) 3.8 Lymph # (Auto) 0.8 L [place] # (Auto) 0.5 Eos # (Auto) 0.0 Baso # (Auto) 0.0 Immature Gran # (Auto) 0.05 H Absolute Nucleated RBC 0.00 Immature Gran % 1 H Nucleated RBC % 0 PT 22.4 H INR 2.2 H APTT 56.7 H Sodium 128 L 127 L 125 L Potassium 4.0 3.9 Chloride 99 Carbon Dioxide 18.1 L Anion Gap 8 BUN 16 Creatinine 1.0 Estim Creat Clear Calc 70.4 eGFR > 60 BUN/Creatinine Ratio 16 Glucose 121 H Calculated Osmolality 253 L Calcium 8.9 Corrected Calcium 9.4 Magnesium 1.7 Total Bilirubin 5.0 H D AST 45 H ALT 25 Alkaline Phosphatase 138 H Total Protein 5.6 L Albumin 3.4 L D Globulin 2.2 L Albumin/Globulin Ratio 1.5 Peritoneal Color Peritoneal Appearance Peritoneal WBC Peritoneal RBC Periton Polynucl WBCs Periton Mononucl WBCs Peritoneal Tot Protein Peritoneal Albumin Peritoneal LDH Peritoneal Glucose Peritoneal Amylase Misc Test Result Platelets confirmed 09/22/24 09:09 WBC RBC Hgb Hct MCV MCH MCHC RDW Std Deviation Plt Count Neut % (Auto) Lymph % (Auto) [place] % (Auto) Eos % (Auto) Baso % (Auto) Neut # (Auto) Lymph # (Auto) [place] # (Auto) Eos # (Auto) Baso # (Auto) Immature Gran # (Auto) Absolute Nucleated RBC Immature Gran % Nucleated RBC % PT INR APTT Sodium 126 L Potassium Chloride Carbon Dioxide Anion Gap BUN Creatinine Estim Creat Clear Calc eGFR BUN/Creatinine Ratio Glucose Calculated Osmolality Calcium Corrected Calcium Magnesium Total Bilirubin AST ALT Alkaline Phosphatase Total Protein Albumin Globulin Albumin/Globulin Ratio Peritoneal Color Peritoneal Appearance Peritoneal WBC Peritoneal RBC Periton Polynucl WBCs Periton Mononucl WBCs Peritoneal Tot Protein Peritoneal Albumin Peritoneal LDH Peritoneal Glucose Peritoneal Amylase Misc Test Result ABG Interpretation ABG results: 09/20/24 14:21 VBG pH 7.34 VBG pCO2 30 L VBG pO2 35 VBG Base Excess -9 L Quality Measures Quality Measures VTE prophylaxis Assessment & Plan Assessment Current Active Medications: Generic Name Dose Route Start Last Admin Trade Name Freq PRN Reason Stop Dose Admin Acetaminophen 650 mg 09/20/24 23:40 Acetaminophen 325 Mg Tablet PO 10/20/24 15:21 Q6H PRN Pain (1-3) and Fever >101.5 Hydrocodone Bitart/Acetaminophen 1 tab 09/20/24 23:40 09/22/24 12:20 Hydrocodone/Apap 5/325 Tablet PO 09/25/24 23:20 1 tab Q6HR PRN Administration PAIN SCALE 4-10(Mod-Sev Citric Acid/Sodium Citrate 30 ml 09/21/24 09:00 09/22/24 09:28 Citric Acid/Sodium Citr 15 Ml Udc (Bicitra) PO 10/21/24 08:59 30 ml BID JOSELIN Administration Albumin Human 25 gm in 100 mls @ 100 mls/hr 09/20/24 17:00 09/22/24 12:21 Albuminar-25 Ivpb IV 09/23/24 16:59 100 mls/hr QID JOSELIN Administration Ceftriaxone Sodium 2 gm/ 50 mls @ 100 mls/hr 09/20/24 17:15 09/22/24 09:28 Sodium Chloride IV 09/27/24 17:14 100 mls/hr QDAY JOSELIN Administration Dextrose 1,000 mls @ 50 mls/hr 09/20/24 22:15 09/21/24 00:29 D5w IV 50 mls/hr .Q20H JOSELIN Administration Lactulose 10 gm 09/20/24 21:00 09/22/24 09:28 Lactulose Syrup 20 Gm/30 Ml Udc PO 10/20/24 20:59 10 gm BID JOSELIN Administration Protocol Midodrine 5 mg 09/20/24 15:45 09/22/24 13:35 Midodrine 5 Mg Tablet PO 10/20/24 15:44 5 mg TID JOSELIN Administration Ondansetron HCl 4 mg 09/20/24 15:22 Ondansetron Inj 2 Mg/Ml Inj 2 Ml IV 10/20/24 15:21 Q6H PRN NAUSEA OR VOMITING Protocol Pantoprazole Sodium 40 mg 09/21/24 09:15 09/22/24 09:29 Pantoprazole 40 Mg Tablet PO 10/20/24 15:29 40 mg QDAY JOSELIN Administration Plan 54-year-old male with history of end-stage liver 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 # Euvolemic hypoosmolar hyponatremia Patient denies any dizziness, is alert oriented x 4. Patient does have history of decompensated liver failure, has distended abdomen ascitic pattern. CTAP shows prominent ascites. Patient had ascitic fluid drainage before admission. Patient has weekly paracentesis has Pleurx catheter. Patient sodium 118 in ED. Patient is on Lasix and spironolactone at home. Patient sodium increased to 126 with fluid restriction, patient started D5W due to concern for overcorrection. D5W stopped and sodium reached 123. Urine sodium <10. Sodium improved to 128, then down to 126 with fluid restriction. Plan: -Fluid restriction 1500 cc -Sodium checks every 4 hours -Hold home diuretics #Ascites #Tenderness around Pleurx catheter #?Spontaneous bacterial peritonitis # Leukocytosis # Metabolic acidosis with compensatory respiratory alkalosis # Decompensated liver cirrhosis # Thrombocytopenia # History of esophageal gastric varices # History of GI bleed # Hypertension # Chronic normocytic anemia Management as per primary team. DVT prophylaxis: SCDs GI prophylaxis: Protonix IV daily Diet: Low-sodium diet, fluid restriction 1500 cc Lines: Peripheral IV Code status: Full code Thank you for allowing me to participate in the care of this patient. Plan of care discussed with Dr. Banegas. Burton Perales MD PGY-1 Attending Provider Attestation/Addendum Patient seen and examined with resident physician Dr. Perales. Note reviewed, agree with findings and recommendations. Patient with ascites. Has abdominal drain-sodium down to 126-add salt tablets. Clinically feeling much better.
[2024-09-22 15:33] LABS: Sodium 127 mMol/L (136-145)
--- NOTE | 2024-09-22 16:10 | PC.SS ---
SS met with pt regarding his d/c plan. Pt is alert/oriented. Pt was admitted for Hyponatremia. Pt resides with his mom and sister. Pt states he established with [facility] for pleurx drain and is requesting to continue with them. Pt ambulates using 2 wheel walker. Pt is ok with all ADLs. Pt named his sister, Elizabeth Henry medical decision maker if he is unable. Pt states he followed up with PCP 1 month ago. Patient's choice is to return home upon dc. DC Plan: Return home and continue with [facility] Next of Kin: Elizabeth Henry, sister, phone# [phone] PCP: Francis Christy from [facility] Address: Correct on facesheet
[2024-09-22 18:18] LABS: Sodium 125 mMol/L (136-145)
[2024-09-22 22:46] LABS: Sodium 126 mMol/L (136-145)
[2024-09-23] VITALS (16 sets, daily range): BP systolic 87–111; BP diastolic 55–91; PULSE 92–113; RESP 16–99; TEMP 36.5–37.5; O2SAT 95–100; BMI 20.6
[2024-09-23] MEDS: HYDROcodone/APAP 5/325 TABLET 1 TAB PO ×4 (00:46→22:23)
[2024-09-23 02:33] LABS: Sodium 127 mMol/L (136-145)
[2024-09-23] MEDS: MIDODRINE 5 MG TABLET PO ×3 (05:37→21:32)
[2024-09-23] MEDS: ALBUMIN HUMAN 25% IVPB 25 GM/100 ML BTL IV ×2 (05:37→13:44)
--- NOTE | 2024-09-23 06:00 | XR_ITS ---
Examination: Ultrasound-guided paracentesis Abdominal sonogram limited Date and time of exam: September 23, 2024 1052 hours INDICATIONS: Cirrhosis, increasing ascites and abdominal distention this week Informed consent provided. A timeout was completed verifying correct patient, procedure, site, positioning, and special adequate movement if applicable. Technique: Multiple sonographic images of the abdomen have been obtained. Appropriate area for paracentesis was marked. Local anesthesia is obtained with 1% lidocaine. Yueh catheter is successfully introduced. Findings: Abdominal sonographic images demonstrate sufficient ascitic fluid for paracentesis. After placing the Yueh catheter, 1100 cc of fluid were successfully removed. During and after completion of the procedure the patient appear in satisfactory and stable condition with no complications observed. Estimated blood loss 0 cc Impression: Abdominal ascites Successful ultrasound-guided paracentesis as described above
[2024-09-23 06:13] LABS: Basophils % (Auto) 0 % (0-2.5); Eosinophils % (Auto) 0 % (0-10); Immature Granulocytes % (Auto) 1 % (0-0); Lymphocytes # (Auto) 1.4 Thou/mm3 (1.0-4.8); Lymphocytes % (Auto) 11 % (10-50); Mean Corpuscular HGB Conc 36.5 g/dl (31.0-37.0); Mean Corpuscular Hemoglobin 33.5 pg (25.0-35.0); Mean Corpuscular Volume 92 fL (80-100); Monocytes # (Auto) 1.8 Thou/mm3 (0.0-0.8); Monocytes % (Auto) 13 % (0-12); Neutrophils # (Auto) 10.1 Thou/mm3 (1.8-7.7); Neutrophils % (Auto) 75 % (37-80); Nucleated Red Blood Cell % 0 /100 WBC (0); RDW Standard Deviation 59.8 fL (35.1-43.9); Red Blood Count 2.51 Miln/mm3 (4.50-5.90); White Blood Count 13.4 Thou/mm3 (3.8-10.6)
[2024-09-23 06:33] LABS: Hemoglobin 8.2 g/dL (13.5-16.0)
[2024-09-23 06:40] LABS: INR 2.6 (0.9-1.3); Partial Thromboplastin Time 76.9 Seconds (22.0-36.0); Prothrombin Time 26.6 Seconds (9.0-12.2)
[2024-09-23 06:47] LABS: Platelet Count 70 Thou/mm3 (140-440); Slide Review Platelets confirmed
[2024-09-23 06:59] LABS: Alanine Aminotransferase 20 U/L (10-49); Albumin, Serum 3.9 gm/dL (3.5-5.0); Albumin/Globulin Ratio 1.9 (1.2-2.2); Alkaline Phosphatase 84 U/L (46-116); Anion Gap 12 (7-16); Aspartate Amino Transferase 34 U/L (0-34); BUN/Creatinine Ratio 14 Ratio (12-20); Bilirubin,Total 5.8 mg/dL (0.3-1.2); Blood Urea Nitrogen 19 mg/dL (9-23); Calcium 9.3 mg/dL (8.3-10.6); Calcium (Corrected) 9.4 mg/dL (8.5-10.1); Carbon Dioxide 17.8 mMol/L (20.0-31.0); Chloride 96 mMol/L (98-107); Creatinine (Component) 1.4 mg/dL (0.6-1.3); Estimated Creatinine Clearance 50.3 mL/min (>60); Globulin 2.1 gm/dL (2.3-3.5); Glucose 86 mg/dL (74-106); Magnesium 1.6 mg/dL (1.6-2.6); Osmolality,Calculated 254 (275-295); Potassium 2.8 mMol/L (3.4-5.1); Sodium 126 mMol/L (136-145); eGFR > 60 See Note
[2024-09-23] MEDS: POTASSIUM CHL 10 mEq IVPB 10 MEQ/100 ML BAG 100 MEQ IV ×4 (07:55→12:38)
[2024-09-23] MEDS: POTASSIUM CHLORIDE 20 mEq TABCR 40 MEQ PO (07:56)
[2024-09-23] MEDS: cefTRIAXone 2 GM in SODIUM CHLORIDE 0.9% (P) 50 ML IV (09:09)
[2024-09-23] MEDS: CITRIC ACID/SODIUM CITR 15 ML UDC (BICITRA) 30 ML PO ×2 (09:09→21:32)
[2024-09-23] MEDS: SODIUM CHLORIDE 1 GM TABLET PO (09:10)
[2024-09-23] MEDS: LACTULOSE SYRUP 20 GM/30 ML UDC 10 GM PO ×2 (09:10→21:32)
[2024-09-23] MEDS: PANTOPRAZOLE 40 MG TABLET PO (09:10)
--- NOTE | 2024-09-23 09:45 | ESPR_ITS ---
Documentation for date of: 09/23/24 Subjective Subjective Interval history: Mr. 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 Patient initially presented due to concern of dislodging paracentesis pleurx catheter, patient's sister at bedside reported that he was confused at home and possibly tugged on the catheter, does report increased redness and discomfort from around the catheter site. Patient did have paracentesis earlier this morning where adequate amount of fluid was removed, during workup in ED patient's sodium came back 118 and hospitalist team was consulted due to concern of hyponatremia. Patient denies any dizziness, is alert oriented x 4. Patient otherwise has no complaints and reports he is feeling fine. Patient denies any chest pain, shortness of breath and headache. CTAP in ED showed cirrhosis, prominent ascites and Pleurx drainage catheter in satisfactory position. Patient was given lactulose 40 g in ED, catheter was stitched in place in ED. Patient hyponatremia initially improved with fluid restriction to 126. Concern for overcorrection, patient was placed on D5W with hyponatremia trending down to 123. Nephrology consulted for closer management patient's hyponatremia. Patient seen and examined on the floors. Patient resting comfortably in bed. Patient appeared clinically hypovolemic, dry: Dry mucous membranes, no edema, lungs clear to auscultation. Patient did have notable ascites with abdominal distention. Suspect intravascular depletion, patient receiving albumin. Sodium remained at 123. BUN 20, creatinine 1.3, eGFR >60. Urine sodium <10. Plan to resume fluid restriction, monitor sodium levels. 09/22: Patient seen and examined in floors, resting comfortable in bed. Condition largely unchanged from yesterday. Dry mucous membranes, no edema, lungs clear to auscultation, notable ascites and abdominal distention. Sodium increased to 128, currently 126. BUN 16, creatinine 1.0, eGFR >60. Recommend continuing fluid restriction. 09/23: Patient seen and examined on floors, resting comfortable in bed. Dry mucous membranes, no edema, lungs clear to auscultation. Notable ascites abdominal distention. Small amount of fluid leaking around Pleurx catheter site. Sodium 120 05/2026 overnight. Potassium 2.8, 40 mEq p.o. and 40 mEq IV given. Bicarb 17.8, BUN 19, creatinine 1.4, eGFR >60. Suspect hypokalemia due to diarrhea, lactulose usage. Will initiate salt tabs. Exam Vital Signs Temp Pulse Resp BP Pulse Ox O2 Del Method O2 Flow Rate 98.4 F 100 16 110/59 L 100 Room Air 0 09/23/24 08:00 09/23/24 08:00 09/23/24 08:00 09/23/24 08:00 09/23/24 08:00 09/23/24 08:00 09/22/24 16:00 Narrative Exam PE: Gen: Well-developed and well-nourished. HEENT: NCAT, PERRLA, EOMI, anicteric conjunctivae. Dry mucous membranes. CVS: normal S1 and S2. RRR. No M/R/G. Resp: CTA B/L. No rhonchi, rales, crackles or wheezing. Abd: Abdominal distention, ascites. Umbilical hernia. Pleurx catheter in right lower quadrant, tender, small amount of fluid leaking from entry site. MSK: Good ROM in BUE & BLE. No edema or rash. Neuro: CN II-XII grossly intact. Strength 5/5 in BUE & BLE. Alert and oriented x3. Psych: appropriate mood and affect. Objective Labs 09/23/24 05:12 09/23/24 17:32 Labs: Laboratory Results - last 24 hr 09/22/24 09/22/24 09/22/24 09:09 14:46 17:55 WBC RBC Hgb Hct MCV MCH MCHC RDW Std Deviation Plt Count Neut % (Auto) Lymph % (Auto) [place] % (Auto) Eos % (Auto) Baso % (Auto) Neut # (Auto) Lymph # (Auto) [place] # (Auto) Eos # (Auto) Baso # (Auto) Immature Gran # (Auto) Absolute Nucleated RBC Immature Gran % Nucleated RBC % PT INR APTT Sodium 126 L 127 L 125 L Potassium Chloride Carbon Dioxide Anion Gap BUN Creatinine Estim Creat Clear Calc eGFR BUN/Creatinine Ratio Glucose Calculated Osmolality Calcium Corrected Calcium Magnesium Total Bilirubin AST ALT Alkaline Phosphatase Total Protein Albumin Globulin Albumin/Globulin Ratio Misc Test Result 09/22/24 09/23/24 09/23/24 22:03 02:13 05:12 WBC 13.4 H D RBC 2.51 L Hgb 8.2 L Hct 23.0 L MCV 92 MCH 33.5 MCHC 36.5 RDW Std Deviation 59.8 H Plt Count 70 L Neut % (Auto) 75 Lymph % (Auto) 11 [place] % (Auto) 13 H Eos % (Auto) 0 Baso % (Auto) 0 Neut # (Auto) 10.1 H Lymph # (Auto) 1.4 [place] # (Auto) 1.8 H Eos # (Auto) 0.0 Baso # (Auto) 0.0 Immature Gran # (Auto) 0.10 H Absolute Nucleated RBC 0.00 Immature Gran % 1 H Nucleated RBC % 0 PT 26.6 H D INR 2.6 H APTT 76.9 H D Sodium 126 L 127 L 126 L Potassium 2.8 L D Chloride 96 L Carbon Dioxide 17.8 L Anion Gap 12 BUN 19 Creatinine 1.4 H Estim Creat Clear Calc 50.3 L eGFR > 60 BUN/Creatinine Ratio 14 Glucose 86 Calculated Osmolality 254 L Calcium 9.3 Corrected Calcium 9.4 Magnesium 1.6 Total Bilirubin 5.8 H D AST 34 ALT 20 Alkaline Phosphatase 84 D Total Protein 6.0 Albumin 3.9 D Globulin 2.1 L Albumin/Globulin Ratio 1.9 Misc Test Result Platelets confirmed ABG Interpretation ABG results: 09/20/24 14:21 VBG pH 7.34 VBG pCO2 30 L VBG pO2 35 VBG Base Excess -9 L Quality Measures Quality Measures VTE prophylaxis Assessment & Plan Assessment Current Active Medications: Generic Name Dose Route Start Last Admin Trade Name Donna PRN Reason Stop Dose Admin Acetaminophen 650 mg 09/20/24 23:40 Acetaminophen 325 Mg Tablet PO 10/20/24 15:21 Q6H PRN Pain (1-3) and Fever >101.5 Hydrocodone Bitart/Acetaminophen 1 tab 09/20/24 23:40 09/23/24 09:10 Hydrocodone/Apap 5/325 Tablet PO 09/25/24 23:20 1 tab Q6HR PRN Administration PAIN SCALE 4-10(Mod-Sev Citric Acid/Sodium Citrate 30 ml 09/21/24 09:00 09/23/24 09:09 Citric Acid/Sodium Citr 15 Ml Udc (Bicitra) PO 12/19/24 08:59 30 ml BID JOSELIN Administration Albumin Human 25 gm in 100 mls @ 100 mls/hr 09/20/24 17:00 09/23/24 05:37 Albuminar-25 Ivpb IV 09/23/24 16:59 100 mls/hr QID JOSELIN Administration Ceftriaxone Sodium 2 gm/ 50 mls @ 100 mls/hr 09/20/24 17:15 09/23/24 09:09 Sodium Chloride IV 09/27/24 17:14 100 mls/hr QDAY JOSELIN Administration Dextrose 1,000 mls @ 50 mls/hr 09/20/24 22:15 09/21/24 00:29 D5w IV 50 mls/hr .Q20H JOSELIN Administration Potassium Chloride 10 meq in 100 mls @ 100 mls/hr 09/23/24 07:10 09/23/24 09:09 Kcl Ivpb IV 09/23/24 11:09 100 mls/hr Q1H JOSELIN Administration Lactulose 10 gm 09/20/24 21:00 09/23/24 09:10 Lactulose Syrup 20 Gm/30 Ml Udc PO 10/20/24 20:59 10 gm BID JOSELIN Administration Protocol Midodrine 5 mg 09/20/24 15:45 09/23/24 05:37 Midodrine 5 Mg Tablet PO 10/20/24 15:44 5 mg TID JOSELIN Administration Ondansetron HCl 4 mg 09/20/24 15:22 Ondansetron Inj 2 Mg/Ml Inj 2 Ml IV 10/20/24 15:21 Q6H PRN NAUSEA OR VOMITING Protocol Pantoprazole Sodium 40 mg 09/21/24 09:15 09/23/24 09:10 Pantoprazole 40 Mg Tablet PO 10/20/24 15:29 40 mg QDAY JOSELIN Administration Sodium Chloride 1 gm 09/23/24 09:00 09/23/24 09:10 Sodium Chloride 1 Gm Tablet PO 10/23/24 08:59 1 gm DAILY JOSELIN Administration Plan 54-year-old male with history of 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 # Euvolemic hypoosmolar hyponatremia Patient denies any dizziness, is alert oriented x 4. Patient does have history of decompensated liver failure, has distended abdomen ascitic pattern. CTAP shows prominent ascites. Patient had ascitic fluid drainage before admission. Patient has weekly paracentesis has Pleurx catheter. Patient sodium 118 in ED. Patient is on Lasix and spironolactone at home. Patient sodium increased to 126 with fluid restriction, patient started D5W due to concern for overcorrection. D5W stopped and sodium reached 123. Urine sodium <10. Sodium improved to 128, then down to 126 with fluid restriction. Plan: -Fluid restriction 1500 cc -Sodium checks every 4 hours -Hold home diuretics -Salt tabs 1 g once daily #Ascites #Tenderness around Pleurx catheter #?Spontaneous bacterial peritonitis # Leukocytosis # Metabolic acidosis with compensatory respiratory alkalosis # Decompensated liver cirrhosis # Thrombocytopenia # History of esophageal gastric varices # History of GI bleed # Hypertension # Chronic normocytic anemia Management as per primary team. DVT prophylaxis: SCDs GI prophylaxis: Protonix IV daily Diet: Low-sodium diet, fluid restriction 1500 cc Lines: Peripheral IV Code status: Full code Thank you for allowing me to participate in the care of this patient. Plan of care discussed with Dr. Banegas. Burton Perales MD PGY-1 Attending Provider Attestation/Addendum Patient seen and examined with resident physician Dr. Perales. Note reviewed, agree with findings and recommendations. Clinically patient feels much better. Still with significant ascites. He has a drain. Sodium dropped-will add salt tablet.
[2024-09-23 10:08] LABS: Sodium 124 mMol/L (136-145)
[2024-09-23 14:18] LABS: Sodium 124 mMol/L (136-145)
[2024-09-23 15:11] LABS: Albumin, Peritoneal Fluid 1.3 gm/dL; Amylase,Peritoneal Fluid 37 IU/L; Glucose,Peritoneal Fluid 72 mg/dL; LDH,Peritoneal Fluid 233 IU/L; Protein Total,Peritoneal Fluid < 2 g/dL
--- NOTE | 2024-09-23 15:31 | ESPR_ITS ---
<Statement entered by Erik Wilson DO - 09/23/24 19:39> Senior attestation: Patient was examined and case was reviewed with team including attending physician. Note reviewed, I agree with most of its contents and agree with the patient's care. Will continue with IV rocephin for now for SBP treatment, repeat paracentesis completed today revealing elevated WBC and PMNs compared to initial paracentesis results, peritoneal culture remain pending. Will consult ID given concerns of catheter infection and SBP. Nephrology following, will start salt tablets today for hyponatremia. Erik Wilson DO PGY-3 Documentation for date of: 09/23/24 Subjective Subjective Interval history: Patient seen at bedside. Patient complains of abdominal tenderness. Peritoneal culture pending. Will continue IV ceftriaxone and albumin for SBP treatment. Patient will be started on salt tablets by nephrology Patient is scheduled for paracentesis today. Patient receiving wound care around catheter site, reports improvement in symptoms. Will be discharged to [facility]. Will continue to monitor patient, denies any hematemesis hematuria and blood in stool hemoglobin stable. Exam Vital Signs Temp Pulse Resp BP Pulse Ox O2 Del Method O2 Flow Rate 97.7 F 99 16 87/55 L 100 Room Air 0 09/23/24 11:56 09/23/24 13:27 09/23/24 11:56 09/23/24 13:27 09/23/24 11:56 09/23/24 11:56 09/22/24 16:00 Narrative Exam Physical Exam General: Awake and in no acute distress. Conversational and non-toxic appearing. HEENT: Normocephalic, atraumatic, mucous membranes moist. Heart: Regular rate and rhythm, no murmurs. Lungs: Clear to auscultation with no wheezing or crackles. Abdomen: Soft, distended, ascitic pattern, tenderness noted in all 4 quadrants, positive bowel sounds. Umbilical hernia noted. PleurX catheter intact with tenderness around site and discharge. Neurologic: Alert and oriented x3, no gross neurological deficit, and patient able to move all 4 extremities. Extremities: No edema. Skin: No rash or ecchymoses. Objective Labs 09/24/24 05:23 09/24/24 05:23 Labs: Laboratory Results - last 24 hr 09/22/24 09/22/24 09/22/24 14:46 17:55 22:03 WBC RBC Hgb Hct MCV MCH MCHC RDW Std Deviation Plt Count Neut % (Auto) Lymph % (Auto) [place] % (Auto) Eos % (Auto) Baso % (Auto) Neut # (Auto) Lymph # (Auto) [place] # (Auto) Eos # (Auto) Baso # (Auto) Immature Gran # (Auto) Absolute Nucleated RBC Immature Gran % Nucleated RBC % PT INR APTT Sodium 127 L 125 L 126 L Potassium Chloride Carbon Dioxide Anion Gap BUN Creatinine Estim Creat Clear Calc eGFR BUN/Creatinine Ratio Glucose Calculated Osmolality Calcium Corrected Calcium Magnesium Total Bilirubin AST ALT Alkaline Phosphatase Total Protein Albumin Globulin Albumin/Globulin Ratio Peritoneal Tot Protein Peritoneal Albumin Peritoneal LDH Peritoneal Glucose Peritoneal Amylase Misc Test Result 09/23/24 09/23/24 09/23/24 02:13 05:12 09:45 WBC 13.4 H D RBC 2.51 L Hgb 8.2 L Hct 23.0 L MCV 92 MCH 33.5 MCHC 36.5 RDW Std Deviation 59.8 H Plt Count 70 L Neut % (Auto) 75 Lymph % (Auto) 11 [place] % (Auto) 13 H Eos % (Auto) 0 Baso % (Auto) 0 Neut # (Auto) 10.1 H Lymph # (Auto) 1.4 [place] # (Auto) 1.8 H Eos # (Auto) 0.0 Baso # (Auto) 0.0 Immature Gran # (Auto) 0.10 H Absolute Nucleated RBC 0.00 Immature Gran % 1 H Nucleated RBC % 0 PT 26.6 H D INR 2.6 H APTT 76.9 H D Sodium 127 L 126 L 124 L Potassium 2.8 L D Chloride 96 L Carbon Dioxide 17.8 L Anion Gap 12 BUN 19 Creatinine 1.4 H Estim Creat Clear Calc 50.3 L eGFR > 60 BUN/Creatinine Ratio 14 Glucose 86 Calculated Osmolality 254 L Calcium 9.3 Corrected Calcium 9.4 Magnesium 1.6 Total Bilirubin 5.8 H D AST 34 ALT 20 Alkaline Phosphatase 84 D Total Protein 6.0 Albumin 3.9 D Globulin 2.1 L Albumin/Globulin Ratio 1.9 Peritoneal Tot Protein Peritoneal Albumin Peritoneal LDH Peritoneal Glucose Peritoneal Amylase Misc Test Result Platelets confirmed 09/23/24 09/23/24 11:45 13:44 WBC RBC Hgb Hct MCV MCH MCHC RDW Std Deviation Plt Count Neut % (Auto) Lymph % (Auto) [place] % (Auto) Eos % (Auto) Baso % (Auto) Neut # (Auto) Lymph # (Auto) [place] # (Auto) Eos # (Auto) Baso # (Auto) Immature Gran # (Auto) Absolute Nucleated RBC Immature Gran % Nucleated RBC % PT INR APTT Sodium 124 L Potassium Chloride Carbon Dioxide Anion Gap BUN Creatinine Estim Creat Clear Calc eGFR BUN/Creatinine Ratio Glucose Calculated Osmolality Calcium Corrected Calcium Magnesium Total Bilirubin AST ALT Alkaline Phosphatase Total Protein Albumin Globulin Albumin/Globulin Ratio Peritoneal Tot Protein < 2 Peritoneal Albumin 1.3 Peritoneal LDH 233 Peritoneal Glucose 72 Peritoneal Amylase 37 Misc Test Result ABG Interpretation ABG results: 09/20/24 14:21 VBG pH 7.34 VBG pCO2 30 L VBG pO2 35 VBG Base Excess -9 L Quality Measures Quality Measures VTE prophylaxis Assessment & Plan Assessment Current Active Medications: Generic Name Dose Route Start Last Admin Trade Name Freq PRN Reason Stop Dose Admin Acetaminophen 650 mg 09/20/24 23:40 Acetaminophen 325 Mg Tablet PO 10/20/24 15:21 Q6H PRN Pain (1-3) and Fever >101.5 Hydrocodone Bitart/Acetaminophen 1 tab 09/20/24 23:40 09/23/24 09:10 Hydrocodone/Apap 5/325 Tablet PO 09/25/24 23:20 1 tab Q6HR PRN Administration PAIN SCALE 4-10(Mod-Sev Citric Acid/Sodium Citrate 30 ml 09/21/24 09:00 09/23/24 09:09 Citric Acid/Sodium Citr 15 Ml Udc (Bicitra) PO 10/21/24 08:59 30 ml BID JOSELIN Administration Albumin Human 25 gm in 100 mls @ 100 mls/hr 09/20/24 17:00 09/23/24 13:44 Albuminar-25 Ivpb IV 09/23/24 16:59 100 mls/hr QID JOSELIN Administration Ceftriaxone Sodium 2 gm/ 50 mls @ 100 mls/hr 09/20/24 17:15 09/23/24 09:09 Sodium Chloride IV 09/27/24 17:14 100 mls/hr QDAY JOSELIN Administration Dextrose 1,000 mls @ 50 mls/hr 09/20/24 22:15 09/21/24 00:29 D5w IV 50 mls/hr .Q20H JOSELIN Administration Lactulose 10 gm 09/20/24 21:00 09/23/24 09:10 Lactulose Syrup 20 Gm/30 Ml Udc PO 10/20/24 20:59 10 gm BID JOSELIN Administration Protocol Midodrine 5 mg 09/20/24 15:45 09/23/24 13:27 Midodrine 5 Mg Tablet PO 10/20/24 15:44 5 mg TID JOSELIN Administration Ondansetron HCl 4 mg 09/20/24 15:22 Ondansetron Inj 2 Mg/Ml Inj 2 Ml IV 10/20/24 15:21 Q6H PRN NAUSEA OR VOMITING Protocol Pantoprazole Sodium 40 mg 09/21/24 09:15 09/23/24 09:10 Pantoprazole 40 Mg Tablet PO 10/20/24 15:29 40 mg QDAY JOSELIN Administration Sodium Chloride 1 gm 09/23/24 09:00 09/23/24 09:10 Sodium Chloride 1 Gm Tablet PO 10/23/24 08:59 1 gm DAILY JOSELIN Administration Plan Assessment and Plan Summary:Mr. 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 -Patient does not have any abdominal pain, high suspicion of SBP due to underlying catheter for weekly paracentesis. -Peritoneal fluid (09/21) color yellow, appearance hazy, WBC 697, RBC 396, polynuclear WBCs 48%, mononuclear WBC 52%, peritoneal total protein less than 2, peritoneal albumin less than 1, peritoneal LDH 51, peritoneal glucose 117, peritoneal amylase 32. -Peritoneal fluid (09/23) color yellow, peritoneal appearance easy, WBC 1347, RBC 4000, peritoneal polynuclear WBC 80%, mononuclear WBC 20%, total protein less than 2, albumin 1.3, LDH 233, glucose 72, Amylase 37 Plan: -Continue albumin 25% 4 times daily for 3 days -Continue ceftriaxone 2 g/day -Follow peritoneal fluid culture. -Consulted infectious disease, appreciate recommendations -Will consider escalation of antibiotics per ID recommendations -Will consider removal/exchange of catheter as it is a suspected source of infection # Euvolemic hypoosmolar hyponatremia -Patient denies any dizziness, is alert oriented x 4. Patient does have history of decompensated liver failure, has distended abdomen ascitic pattern. CTAP shows prominent ascites. -Patient had ascitic fluid drainage earlier today in a.m., patient has weekly paracentesis has Pleurx catheter. -Patient sodium 118 in ED. Patient is on Lasix and spironolactone at home. Plan: -Fluid restriction 1500 cc -Patient started on salt tablets twice daily by nephrology -Consulted nephrology, appreciate recommendations -Sodium checks every 4 hours with goal correction of 4 to 6 mEq in 24 hours. -Hold home diuretics # Decompensated liver cirrhosis # Thrombocytopenia # History of esophageal gastric varices # History of GI bleed # Hypertension # Chronic normocytic anemia -Patient was recently admitted for GI bleed, had EGD with banding done, patient also had large internal hemorrhoids on colonoscopy had banding done. -Hemoglobin is stable, denies any blood in stool, denies any bloody emesis. -Patient is on midodrine 5 3 times daily at home, platelet count 102, coagulation panel PT 18.9, INR 1.8, APTT 48.4 on admission. -Patient was transfused 1 unit PRBC -09/21 Plan: -Hemoglobin stable, will continue to monitor -Patient's hemoglobin dropped likely in setting of IV fluids. -Patient denies any blood in stool, vomit or urine. -Resumed home dose of midodrine 5 three times daily. -Started on lactulose 20 g twice daily # Metabolic acidosis with compensatory respiratory alkalosis, resolved -Patient's pCO2 13.9, VBG shows pCO2 30 -Patient's metabolic acidosis likely in setting of cirrhosis. -Patient was given bicarb x 50 mEq on admission Plan: -Monitor CMP in a.m. DVT prophylaxis: SCDs GI prophylaxis: Protonix IV daily Diet: Low-sodium diet, fluid restriction 1500 cc Lines: Peripheral IV Code status: Full code Case discussed with Attending Dr. Esquivel and senior Dr Wilson PGY3. Tammy Brand PGY1 Attending Provider Attestation/Addendum I have discussed and was present for the essential components of the history, physical examination, diagnosis, and treatment plan with the resident. I agree with the patient's care as documented by the resident and amended herein by me. Erickson Esquivel DO. Although this document has been carefully reviewed, there may still be some phonetic and other typographical errors. These errors are purely grammatical due to imperfections in the software program and should not be construed in any way to compromise the substance of the patient's medical care during this visit.
[2024-09-23 16:02] LABS: Peritoneal Fluid Appearance Hazy; Peritoneal Fluid Color Yellow; Peritoneal Fluid Mononuclear 20 %; Peritoneal Fluid Polynuclear 80 %; Peritoneal Fluid WBC 13474 /cmm; RBC,Peritoneal Fluid 4000 /cmm
[2024-09-23 18:34] LABS: Sodium 125 mMol/L (136-145)
[2024-09-23 22:13] LABS: Sodium 127 mMol/L (136-145)
[2024-09-24] VITALS (12 sets, daily range): BP systolic 96–106; BP diastolic 49–85; PULSE 91–108; RESP 18–19; TEMP 36.8–37.4; O2SAT 99–100
[2024-09-24 02:24] LABS: Sodium 127 mMol/L (136-145)
[2024-09-24] MEDS: MIDODRINE 5 MG TABLET PO ×3 (05:31→21:06)
[2024-09-24] MEDS: HYDROcodone/APAP 5/325 TABLET 1 TAB PO ×3 (05:34→21:06)
[2024-09-24 06:14] LABS: Basophils % (Auto) 0 % (0-2.5); Eosinophils % (Auto) 0 % (0-10); Hematocrit 21.8 % (41.0-53.0); Immature Granulocytes % (Auto) 1 % (0-0); Immature Granulocytes Auto 0.08 Thou/mm3 (0.00-0.00); Lymphocytes # (Auto) 1.1 Thou/mm3 (1.0-4.8); Lymphocytes % (Auto) 9 % (10-50); Mean Corpuscular HGB Conc 35.3 g/dl (31.0-37.0); Mean Corpuscular Hemoglobin 32.8 pg (25.0-35.0); Mean Corpuscular Volume 93 fL (80-100); Monocytes # (Auto) 1.4 Thou/mm3 (0.0-0.8); Monocytes % (Auto) 11 % (0-12); Neutrophils # (Auto) 9.9 Thou/mm3 (1.8-7.7); Neutrophils % (Auto) 79 % (37-80); Nucleated Red Blood Cell % 0 /100 WBC (0); RDW Standard Deviation 61.8 fL (35.1-43.9); Red Blood Count 2.35 Miln/mm3 (4.50-5.90); White Blood Count 12.6 Thou/mm3 (3.8-10.6)
[2024-09-24 06:15] LABS: Hemoglobin 7.7 g/dL (13.5-16.0); Platelet Count 62 Thou/mm3 (140-440)
[2024-09-24 06:28] LABS: Slide Review Platelets confirmed
[2024-09-24 06:41] LABS: Alanine Aminotransferase 16 U/L (10-49); Albumin, Serum 3.5 gm/dL (3.5-5.0); Albumin/Globulin Ratio 1.8 (1.2-2.2); Alkaline Phosphatase 70 U/L (46-116); Anion Gap 9 (7-16); Aspartate Amino Transferase 28 U/L (0-34); BUN/Creatinine Ratio 14 Ratio (12-20); Bilirubin,Total 5.7 mg/dL (0.3-1.2); Blood Urea Nitrogen 27 mg/dL (9-23); Calcium 9.3 mg/dL (8.3-10.6); Calcium (Corrected) 9.7 mg/dL (8.5-10.1); Carbon Dioxide 19.1 mMol/L (20.0-31.0); Chloride 99 mMol/L (98-107); Creatinine (Component) 1.9 mg/dL (0.6-1.3); Glucose 99 mg/dL (74-106); Osmolality,Calculated 260 (275-295); Potassium 3.8 mMol/L (3.4-5.1); Sodium 127 mMol/L (136-145); Total Protein 5.5 gm/dL (5.7-8.2); eGFR 42 See Note
[2024-09-24] MEDS: CITRIC ACID/SODIUM CITR 15 ML UDC (BICITRA) 30 ML PO ×2 (08:32→21:07)
[2024-09-24] MEDS: PANTOPRAZOLE 40 MG TABLET PO (08:32)
[2024-09-24] MEDS: cefTRIAXone 2 GM in SODIUM CHLORIDE 0.9% (P) 50 ML IV (08:32)
[2024-09-24] MEDS: LACTULOSE SYRUP 20 GM/30 ML UDC 10 GM PO ×2 (08:32→21:07)
[2024-09-24] MEDS: SODIUM CHLORIDE 1 GM TABLET PO (08:33)
--- NOTE | 2024-09-24 08:40 | PC.SS ---
Late note 09/23/24: SS met with pt who is requesting to d/c to [facility]. Pt is aware he will have to wait in line for doors to open. Pt is agreeable. and bedside nurse, Jones was present,
[2024-09-24 09:05] LABS: Partial Thromboplastin Time 91.3 Seconds (22.0-36.0)
--- NOTE | 2024-09-24 09:08 | PC.SS ---
SS met with pt to confirm d/c plan. Pt was requesting to visit his brother, Damon in [place]. SS called patient's sister to obtain Damon's address: [address] in [place] ([facility]), phone# [phone]. Pt is aware he can only visit brother. SS informed pt taxi can be provided if they are available and SS can provide bus pass. Pt is now requesting to d/c to [facility] in [facility]. Cory MCKEON was present at bedside. Pt has appropriate clothes, sweater, pants, tony, and 2 pairs of shoes. Pt has 2 bags of clothing at bedside.
[2024-09-24 09:52] LABS: Prothrombin Time 30.7 Seconds (9.0-12.2)
--- NOTE | 2024-09-24 09:52 | PC.SS ---
Follow up note: Pending Dr. Conklin's recommendation. Pt will return home with [facility].
[2024-09-24] MEDS: ALBUMIN HUMAN 25% IVPB 25 GM/100 ML BTL IV ×3 (09:54→21:07)
--- NOTE | 2024-09-24 10:04 | PD.IDPROG ---
Subjective Subjective Interval history: asked to see. peritoneal cx pending. as are gram stains. both from 09/21 and 09/23. cell counts noted,but abd benign. rlq drain noted. Exam Vital Signs Temp Pulse Resp BP Pulse Ox O2 Del Method O2 Flow Rate 99.1 F 107 H 18 106/64 99 Room Air 0 09/24/24 08:00 09/24/24 08:00 09/24/24 08:00 09/24/24 08:00 09/24/24 08:00 09/24/24 08:00 09/24/24 04:00 Narrative Exam very thin. ex etoh user so cirrhosis likely etoh related, no hep panel on file, so will check that too. Objective - Internal Medicine Labs 09/24/24 05:23 09/24/24 05:23 Labs: Laboratory Results - last 24 hr 09/23/24 09/23/24 09/23/24 09:45 11:45 13:44 WBC RBC Hgb Hct MCV MCH MCHC RDW Std Deviation Plt Count Neut % (Auto) Lymph % (Auto) [place] % (Auto) Eos % (Auto) Baso % (Auto) Neut # (Auto) Lymph # (Auto) [place] # (Auto) Eos # (Auto) Baso # (Auto) Immature Gran # (Auto) Absolute Nucleated RBC Immature Gran % Nucleated RBC % PT INR APTT Sodium 124 L 124 L Potassium Chloride Carbon Dioxide Anion Gap BUN Creatinine Estim Creat Clear Calc eGFR BUN/Creatinine Ratio Glucose Calculated Osmolality Calcium Corrected Calcium Total Bilirubin AST ALT Alkaline Phosphatase Total Protein Albumin Globulin Albumin/Globulin Ratio Peritoneal Color Yellow Peritoneal Appearance Hazy Peritoneal WBC 86209 Peritoneal RBC 4000 Periton Polynucl WBCs 80 Periton Mononucl WBCs 20 Peritoneal Tot Protein < 2 Peritoneal Albumin 1.3 Peritoneal LDH 233 Peritoneal Glucose 72 Peritoneal Amylase 37 Misc Test Result 09/23/24 09/23/24 09/24/24 17:32 21:29 02:00 WBC RBC Hgb Hct MCV MCH MCHC RDW Std Deviation Plt Count Neut % (Auto) Lymph % (Auto) [place] % (Auto) Eos % (Auto) Baso % (Auto) Neut # (Auto) Lymph # (Auto) [place] # (Auto) Eos # (Auto) Baso # (Auto) Immature Gran # (Auto) Absolute Nucleated RBC Immature Gran % Nucleated RBC % PT INR APTT Sodium 125 L 127 L 127 L Potassium Chloride Carbon Dioxide Anion Gap BUN Creatinine Estim Creat Clear Calc eGFR BUN/Creatinine Ratio Glucose Calculated Osmolality Calcium Corrected Calcium Total Bilirubin AST ALT Alkaline Phosphatase Total Protein Albumin Globulin Albumin/Globulin Ratio Peritoneal Color Peritoneal Appearance Peritoneal WBC Peritoneal RBC Periton Polynucl WBCs Periton Mononucl WBCs Peritoneal Tot Protein Peritoneal Albumin Peritoneal LDH Peritoneal Glucose Peritoneal Amylase Misc Test Result 09/24/24 05:23 WBC 12.6 H RBC 2.35 L Hgb 7.7 L Hct 21.8 L* MCV 93 MCH 32.8 MCHC 35.3 RDW Std Deviation 61.8 H Plt Count 62 L Neut % (Auto) 79 Lymph % (Auto) 9 L [place] % (Auto) 11 Eos % (Auto) 0 Baso % (Auto) 0 Neut # (Auto) 9.9 H Lymph # (Auto) 1.1 [place] # (Auto) 1.4 H Eos # (Auto) 0.0 Baso # (Auto) 0.0 Immature Gran # (Auto) 0.08 H Absolute Nucleated RBC 0.00 Immature Gran % 1 H Nucleated RBC % 0 PT 30.7 H* D INR 3.0 H APTT 91.3 H D Sodium 127 L Potassium 3.8 D Chloride 99 Carbon Dioxide 19.1 L Anion Gap 9 BUN 27 H Creatinine 1.9 H D Estim Creat Clear Calc 37.0 L eGFR 42 L BUN/Creatinine Ratio 14 Glucose 99 Calculated Osmolality 260 L Calcium 9.3 Corrected Calcium 9.7 Total Bilirubin 5.7 H AST 28 ALT 16 Alkaline Phosphatase 70 Total Protein 5.5 L Albumin 3.5 Globulin 2.0 L Albumin/Globulin Ratio 1.8 Peritoneal Color Peritoneal Appearance Peritoneal WBC Peritoneal RBC Periton Polynucl WBCs Periton Mononucl WBCs Peritoneal Tot Protein Peritoneal Albumin Peritoneal LDH Peritoneal Glucose Peritoneal Amylase Misc Test Result Platelets confirmed ABG Interpretation ABG results: 09/20/24 14:21 VBG pH 7.34 VBG pCO2 30 L VBG pO2 35 VBG Base Excess -9 L Assessment & Plan A&P Narrative possible device related peritoneal inflammation with benign exam, but abnormal cell counts from peritoneal fluid possible sbp. hx suggestive of hepatic encephalopathy cirrhosis. likely etoh related avoid etoh changed to po levaquin thru friday for presumptive sbp. cx usually neg if held this long, they need to go into bc bottles right away or will be negative. will see friday if remains some favor shelter quinolone rx for prevention of sbp, but that is based on a single center study with a high rate of sbp that came down with regular quinolone use. as such, it is a personal choice. Time Spent With Patient Time: Total time spent is greater than 50% in coordination of care (as documented) at patient's floor/unit and/or counseling patient:
--- NOTE | 2024-09-24 10:08 | PC.NURSE ---
Dr. Cano came to see the patient
[2024-09-24] MEDS: SODIUM CHLORIDE 0.9% 1000 ML 1,000 ML 80 ML IV (11:12)
--- NOTE | 2024-09-24 12:03 | PC.SS ---
SS has sent Hospice referral to [facility] using [facility].
--- NOTE | 2024-09-24 13:25 | ESPR_ITS ---
Documentation for date of: 09/24/24 Subjective Subjective Interval history: Mr. Henry is a 54-year-old male with history of end-stage liver 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 Patient initially presented due to concern of dislodging paracentesis pleurx catheter, patient's sister at bedside reported that he was confused at home and possibly tugged on the catheter, does report increased redness and discomfort from around the catheter site. Patient did have paracentesis earlier this morning where adequate amount of fluid was removed, during workup in ED patient's sodium came back 118 and hospitalist team was consulted due to concern of hyponatremia. Patient denies any dizziness, is alert oriented x 4. Patient otherwise has no complaints and reports he is feeling fine. Patient denies any chest pain, shortness of breath and headache. CTAP in ED showed cirrhosis, prominent ascites and Pleurx drainage catheter in satisfactory position. Patient was given lactulose 40 g in ED, catheter was stitched in place in ED. Patient hyponatremia initially improved with fluid restriction to 126. Concern for overcorrection, patient was placed on D5W with hyponatremia trending down to 123. Nephrology consulted for closer management patient's hyponatremia. Patient seen and examined on the floors. Patient resting comfortably in bed. Patient appeared clinically hypovolemic, dry: Dry mucous membranes, no edema, lungs clear to auscultation. Patient did have notable ascites with abdominal distention. Suspect intravascular depletion, patient receiving albumin. Sodium remained at 123. BUN 20, creatinine 1.3, eGFR >60. Urine sodium <10. Plan to resume fluid restriction, monitor sodium levels. 09/22: Patient seen and examined in floors, resting comfortable in bed. Condition largely unchanged from yesterday. Dry mucous membranes, no edema, lungs clear to auscultation, notable ascites and abdominal distention. Sodium increased to 128, currently 126. BUN 16, creatinine 1.0, eGFR >60. Recommend continuing fluid restriction. 09/23: Patient seen and examined on floors, resting comfortable in bed. Dry mucous membranes, no edema, lungs clear to auscultation. Notable ascites abdominal distention. Small amount of fluid leaking around Pleurx catheter site. Sodium 127/126 overnight. Potassium 2.8, 40 mEq p.o. and 40 mEq IV given. Bicarb 17.8, BUN 19, creatinine 1.4, eGFR >60. Suspect hypokalemia due to diarrhea, lactulose usage. Will initiate salt tabs. 09/24: Patient seen and examined the floors, resting comfortably in bed. Dry mucous membranes, no edema, lungs clear to auscultation. Besides abdominal distention, notably improved s/p paracentesis. Sodium stable at 127. Potassium 3.8, bicarb 19.1, BUN 27, creatinine 1.9, eGFR 42. Patient was hypotensive overnight, albumin ordered after falling off. Suspect DOMINGUEZ due to renal ischemia. Ordered albumin, 1 L normal saline at 80 mL/h. Exam Vital Signs Temp Pulse Resp BP Pulse Ox O2 Del Method O2 Flow Rate 98.9 F 101 H 18 97/61 99 Room Air 0 09/24/24 12:00 09/24/24 12:00 09/24/24 12:00 09/24/24 12:00 09/24/24 12:00 09/24/24 12:00 09/24/24 04:00 Narrative Exam PE: Gen: Well-developed and well-nourished. HEENT: NCAT, PERRLA, EOMI, anicteric conjunctivae. Dry mucous membranes. CVS: normal S1 and S2. RRR. No M/R/G. Resp: CTA B/L. No rhonchi, rales, crackles or wheezing. Abd: Abdominal distention, ascites, improved. Umbilical hernia. Pleurx catheter in right lower quadrant, tender, small amount of fluid leaking from entry site. MSK: Good ROM in BUE & BLE. No edema or rash. Neuro: CN II-XII grossly intact. Strength 5/5 in BUE & BLE. Alert and oriented x3. Psych: appropriate mood and affect. Objective Labs 09/24/24 05:23 09/24/24 05:23 Labs: Laboratory Results - last 24 hr 09/23/24 09/23/24 09/23/24 11:45 13:44 17:32 WBC RBC Hgb Hct MCV MCH MCHC RDW Std Deviation Plt Count Neut % (Auto) Lymph % (Auto) [place] % (Auto) Eos % (Auto) Baso % (Auto) Neut # (Auto) Lymph # (Auto) [place] # (Auto) Eos # (Auto) Baso # (Auto) Immature Gran # (Auto) Absolute Nucleated RBC Immature Gran % Nucleated RBC % PT INR APTT Sodium 124 L 125 L Potassium Chloride Carbon Dioxide Anion Gap BUN Creatinine Estim Creat Clear Calc eGFR BUN/Creatinine Ratio Glucose Calculated Osmolality Calcium Corrected Calcium Total Bilirubin AST ALT Alkaline Phosphatase Total Protein Albumin Globulin Albumin/Globulin Ratio Peritoneal Color Yellow Peritoneal Appearance Hazy Peritoneal WBC 37943 Peritoneal RBC 4000 Periton Polynucl WBCs 80 Periton Mononucl WBCs 20 Peritoneal Tot Protein < 2 Peritoneal Albumin 1.3 Peritoneal LDH 233 Peritoneal Glucose 72 Peritoneal Amylase 37 Misc Test Result 09/23/24 09/24/24 09/24/24 21:29 02:00 05:23 WBC 12.6 H RBC 2.35 L Hgb 7.7 L Hct 21.8 L* MCV 93 MCH 32.8 MCHC 35.3 RDW Std Deviation 61.8 H Plt Count 62 L Neut % (Auto) 79 Lymph % (Auto) 9 L [place] % (Auto) 11 Eos % (Auto) 0 Baso % (Auto) 0 Neut # (Auto) 9.9 H Lymph # (Auto) 1.1 [place] # (Auto) 1.4 H Eos # (Auto) 0.0 Baso # (Auto) 0.0 Immature Gran # (Auto) 0.08 H Absolute Nucleated RBC 0.00 Immature Gran % 1 H Nucleated RBC % 0 PT 30.7 H* D INR 3.0 H APTT 91.3 H D Sodium 127 L 127 L 127 L Potassium 3.8 D Chloride 99 Carbon Dioxide 19.1 L Anion Gap 9 BUN 27 H Creatinine 1.9 H D Estim Creat Clear Calc 37.0 L eGFR 42 L BUN/Creatinine Ratio 14 Glucose 99 Calculated Osmolality 260 L Calcium 9.3 Corrected Calcium 9.7 Total Bilirubin 5.7 H AST 28 ALT 16 Alkaline Phosphatase 70 Total Protein 5.5 L Albumin 3.5 Globulin 2.0 L Albumin/Globulin Ratio 1.8 Peritoneal Color Peritoneal Appearance Peritoneal WBC Peritoneal RBC Periton Polynucl WBCs Periton Mononucl WBCs Peritoneal Tot Protein Peritoneal Albumin Peritoneal LDH Peritoneal Glucose Peritoneal Amylase Misc Test Result Platelets confirmed ABG Interpretation ABG results: 09/20/24 14:21 VBG pH 7.34 VBG pCO2 30 L VBG pO2 35 VBG Base Excess -9 L Quality Measures Quality Measures VTE prophylaxis Assessment & Plan Assessment Current Active Medications: Generic Name Dose Route Start Last Admin Trade Name Praveenq PRN Reason Stop Dose Admin Acetaminophen 650 mg 09/20/24 23:40 Acetaminophen 325 Mg Tablet PO 10/20/24 15:21 Q6H PRN Pain (1-3) and Fever >101.5 Citric Acid/Sodium Citrate 30 ml 09/21/24 09:00 09/24/24 08:32 Citric Acid/Sodium Citr 15 Ml Udc (Bicitra) PO 10/21/24 08:59 30 ml BID JOSELIN Administration Albumin Human 25 gm in 100 mls @ 100 mls/hr 09/24/24 08:15 09/24/24 11:23 Albuminar-25 Ivpb IV 09/27/24 08:14 Not Given QID JOSELIN Sodium Chloride 1,000 mls @ 80 mls/hr 09/24/24 09:03 09/24/24 11:12 Ns IV 09/24/24 21:32 80 mls/hr .[id number] Administration Lactulose 10 gm 09/20/24 21:00 09/24/24 08:32 Lactulose Syrup 20 Gm/30 Ml Udc PO 10/20/24 20:59 10 gm BID JOSELIN Administration Protocol Levofloxacin 500 mg 09/25/24 09:00 Levofloxacin 250 Mg Tablet PO 09/27/24 12:00 QDAY JOSELIN Midodrine 5 mg 09/20/24 15:45 09/24/24 05:31 Midodrine 5 Mg Tablet PO 10/20/24 15:44 5 mg TID JOSELIN Administration Ondansetron HCl 4 mg 09/20/24 15:22 Ondansetron Inj 2 Mg/Ml Inj 2 Ml IV 10/20/24 15:21 Q6H PRN NAUSEA OR VOMITING Protocol Pantoprazole Sodium 40 mg 09/21/24 09:15 09/24/24 08:32 Pantoprazole 40 Mg Tablet PO 10/20/24 15:29 40 mg QDAY JOSELIN Administration Sodium Chloride 1 gm 09/23/24 09:00 09/24/24 08:33 Sodium Chloride 1 Gm Tablet PO 10/23/24 08:59 1 gm DAILY JOSELIN Administration Plan 54-year-old male with history of end-stage liver 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 # Euvolemic hypoosmolar hyponatremia Patient denies any dizziness, is alert oriented x 4. Patient does have history of decompensated liver failure, has distended abdomen ascitic pattern. CTAP shows prominent ascites. Patient had ascitic fluid drainage before admission. Patient has weekly paracentesis has Pleurx catheter. Patient sodium 118 in ED. Patient is on Lasix and spironolactone at home. Patient sodium increased to 126 with fluid restriction, patient started D5W due to concern for overcorrection. D5W stopped and sodium reached 123. Urine sodium <10. Sodium improved to 128, then down to 126 with fluid restriction. Plan: -Fluid restriction 1500 cc -Sodium checks every 4 hours -Hold home diuretics -Salt tabs 1 g once daily #DOMINGUEZ, suspect due to ischemia Patient had decreased creatinine and eGFR, previously within normal limits. Patient had hypotension overnight following paracentesis. Clinically appears hypovolemic. -Albumin 25 gm IV 4 times daily -IVF: Normal saline at 80 mL/h x 1 L -Avoid nephrotoxic medications -Monitor daily renal function #Ascites #Tenderness around Pleurx catheter #?Spontaneous bacterial peritonitis # Leukocytosis # Metabolic acidosis with compensatory respiratory alkalosis # Decompensated liver cirrhosis # Thrombocytopenia # History of esophageal gastric varices # History of GI bleed # Hypertension # Chronic normocytic anemia Management as per primary team. DVT prophylaxis: SCDs GI prophylaxis: Protonix IV daily Diet: Low-sodium diet, fluid restriction 1500 cc Lines: Peripheral IV Code status: Full code Thank you for allowing me to participate in the care of this patient. Plan of care discussed with Dr. Banegas. Burton Perales MD PGY-1 Attending Provider Attestation/Addendum Patient seen and examined with resident physician Dr. Perales. Note reviewed, agree with findings and recommendations. His creatinine slightly worsened today. Will give him albumin. Status post large-volume paracentesis yesterday. Question prerenal.
--- NOTE | 2024-09-24 13:30 | ESCONSULT_ITS ---
RE: VINCENT POOLE : 1970 DATE OF CONSULTATION: 09/24/2024 REFERRING PHYSICIAN: Dr. Esquivel. REASON FOR CONSULTATION: Cirrhosis with hepatic encephalopathy with normal ammonia, clinically improved with a drain present. HISTORY OF PRESENT ILLNESS: The patient is a 54-year-old man who was apparently previously on hospice, but opted out of that and is now receiving full treatment. He has a drain in the right lower quadrant and is in there about 6 months according to the patient. ALLERGIES: NOTED. PLEASE SEE LISTING. IT IS MOSTLY PEANUTS PER THE PATIENT. IMMUNIZATIONS: Last tetanus is not known. He does take a flu shot every year. He has had 1 COVID vaccine and believes he may have had pneumococcal vaccine as well. FAMILY HISTORY: Positive for cancer in various relatives. SOCIAL HISTORY: The patient lives with his mother and some other relatives and he quit smoking about 20 years ago. There is heavy alcohol use hx noted. There is no known viral cause for his liver problems. will get one. PE: benign exam. able to speak and interact. abd benign. IMPRESSION: Cirrhosis cause is probably alcohol. Other problems identified. RECOMMENDATIONS: The patient is clinically improved. Gram stain and cultures of peritoneal fluid remain pending from the as well as the . That is unusual and will probably be negative. If they are positive, we may need to target any germs found for treatment. For now, I am going to switch him to oral Levaquin, though because if the culture are negative as are blood cultures. I will change his antibiotics to Levaquin and check on him daily the next few days. cc: Dr. Esquivel DT: 10:59:42 TT: 12:59:00 Ref: [id number] - TID: [id number] MTDD
--- NOTE | 2024-09-24 15:44 | ESPR_ITS ---
<Statement entered by Erik Wilson DO - 09/24/24 21:54> Senior attestation: Patient was examined and case was reviewed with team including attending physician. Note reviewed, I agree with most of its contents and agree with the patient's care. ID following, has been started on PO levaquin. Discussion with patient regarding catheter risk of recurrent infection, patient is in agreement with catheter removal for now without plan for re-insertion, patient understands he may need repeat paracentesis in the future. IR removal of pleurx catheter has been ordered. Erik Wilson DO PGY-3 Documentation for date of: 09/24/24 Subjective Subjective Interval history: Patient seen at bedside. Patient complains of abdominal tenderness, complains of dull pain. Peritoneal culture pending. Paracentesis from yesterday shows remarkable elevation of WBCs and PMNs. Was seen by ID, started on levofloxacin. Will continue salt tablets per nephrology Creatinine 1.9 today. Will continue to monitor patient, denies any hematemesis hematuria and blood in stool hemoglobin stable. Exam Vital Signs Temp Pulse Resp BP Pulse Ox O2 Del Method O2 Flow Rate 98.9 F 97 18 99/49 L 99 Room Air 0 09/24/24 12:00 09/24/24 13:54 09/24/24 12:00 09/24/24 13:54 09/24/24 12:00 09/24/24 12:00 09/24/24 04:00 Narrative Exam Physical Exam General: Awake and in no acute distress. Conversational and non-toxic appearing. HEENT: Normocephalic, atraumatic, mucous membranes moist. Heart: Regular rate and rhythm, no murmurs. Lungs: Clear to auscultation with no wheezing or crackles. Abdomen: Soft, distended, ascitic pattern, tenderness noted in all 4 quadrants, positive bowel sounds. Umbilical hernia noted. PleurX catheter intact with tenderness around site and discharge. Neurologic: Alert and oriented x3, no gross neurological deficit, and patient able to move all 4 extremities. Extremities: No edema. Skin: No rash or ecchymoses. Objective Labs 09/27/24 07:22 09/27/24 04:33 Labs: Laboratory Results - last 24 hr 09/23/24 09/23/24 09/23/24 11:45 17:32 21:29 WBC RBC Hgb Hct MCV MCH MCHC RDW Std Deviation Plt Count Neut % (Auto) Lymph % (Auto) [place] % (Auto) Eos % (Auto) Baso % (Auto) Neut # (Auto) Lymph # (Auto) [place] # (Auto) Eos # (Auto) Baso # (Auto) Immature Gran # (Auto) Absolute Nucleated RBC Immature Gran % Nucleated RBC % PT INR APTT Sodium 125 L 127 L Potassium Chloride Carbon Dioxide Anion Gap BUN Creatinine Estim Creat Clear Calc eGFR BUN/Creatinine Ratio Glucose Calculated Osmolality Calcium Corrected Calcium Total Bilirubin AST ALT Alkaline Phosphatase Total Protein Albumin Globulin Albumin/Globulin Ratio Peritoneal Color Yellow Peritoneal Appearance Hazy Peritoneal WBC 12853 Peritoneal RBC 4000 Periton Polynucl WBCs 80 Periton Mononucl WBCs 20 Misc Test Result 09/24/24 09/24/24 02:00 05:23 WBC 12.6 H RBC 2.35 L Hgb 7.7 L Hct 21.8 L* MCV 93 MCH 32.8 MCHC 35.3 RDW Std Deviation 61.8 H Plt Count 62 L Neut % (Auto) 79 Lymph % (Auto) 9 L [place] % (Auto) 11 Eos % (Auto) 0 Baso % (Auto) 0 Neut # (Auto) 9.9 H Lymph # (Auto) 1.1 [place] # (Auto) 1.4 H Eos # (Auto) 0.0 Baso # (Auto) 0.0 Immature Gran # (Auto) 0.08 H Absolute Nucleated RBC 0.00 Immature Gran % 1 H Nucleated RBC % 0 PT 30.7 H* D INR 3.0 H APTT 91.3 H D Sodium 127 L 127 L Potassium 3.8 D Chloride 99 Carbon Dioxide 19.1 L Anion Gap 9 BUN 27 H Creatinine 1.9 H D Estim Creat Clear Calc 37.0 L eGFR 42 L BUN/Creatinine Ratio 14 Glucose 99 Calculated Osmolality 260 L Calcium 9.3 Corrected Calcium 9.7 Total Bilirubin 5.7 H AST 28 ALT 16 Alkaline Phosphatase 70 Total Protein 5.5 L Albumin 3.5 Globulin 2.0 L Albumin/Globulin Ratio 1.8 Peritoneal Color Peritoneal Appearance Peritoneal WBC Peritoneal RBC Periton Polynucl WBCs Periton Mononucl WBCs Misc Test Result Platelets confirmed ABG Interpretation ABG results: 09/20/24 14:21 VBG pH 7.34 VBG pCO2 30 L VBG pO2 35 VBG Base Excess -9 L Quality Measures Quality Measures VTE prophylaxis Assessment & Plan Assessment Current Active Medications: Generic Name Dose Route Start Last Admin Trade Name Donna PRN Reason Stop Dose Admin Acetaminophen 650 mg 09/20/24 23:40 Acetaminophen 325 Mg Tablet PO 10/20/24 15:21 Q6H PRN Pain (1-3) and Fever >101.5 Hydrocodone Bitart/Acetaminophen 1 tab 09/24/24 13:43 09/24/24 13:53 Hydrocodone/Apap 5/325 Tablet PO 09/29/24 13:42 1 tab Q6HR PRN Administration PAIN SCALE 7-10 (Severe Citric Acid/Sodium Citrate 30 ml 09/21/24 09:00 09/24/24 08:32 Citric Acid/Sodium Citr 15 Ml Udc (Bicitra) PO 10/21/24 08:59 30 ml BID JOSELIN Administration Albumin Human 25 gm in 100 mls @ 100 mls/hr 09/24/24 08:15 09/24/24 11:23 Albuminar-25 Ivpb IV 09/27/24 08:14 Not Given QID JOSELIN Sodium Chloride 1,000 mls @ 80 mls/hr 09/24/24 09:03 09/24/24 11:12 Ns IV 09/24/24 21:32 80 mls/hr .[id number] Administration Lactulose 10 gm 09/20/24 21:00 09/24/24 08:32 Lactulose Syrup 20 Gm/30 Ml Udc PO 10/20/24 20:59 10 gm BID JOSELIN Administration Protocol Levofloxacin 500 mg 09/25/24 09:00 Levofloxacin 250 Mg Tablet PO 09/27/24 12:00 QDAY JOSELIN Midodrine 5 mg 09/20/24 15:45 09/24/24 13:54 Midodrine 5 Mg Tablet PO 10/20/24 15:44 5 mg TID JOSELIN Administration Ondansetron HCl 4 mg 09/20/24 15:22 Ondansetron Inj 2 Mg/Ml Inj 2 Ml IV 10/20/24 15:21 Q6H PRN NAUSEA OR VOMITING Protocol Pantoprazole Sodium 40 mg 09/21/24 09:15 09/24/24 08:32 Pantoprazole 40 Mg Tablet PO 10/20/24 15:29 40 mg QDAY JOSELIN Administration Sodium Chloride 1 gm 09/23/24 09:00 09/24/24 08:33 Sodium Chloride 1 Gm Tablet PO 10/23/24 08:59 1 gm DAILY JOSELIN Administration Plan Assessment and Plan Summary:Mr. 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 -Patient does not have any abdominal pain, high suspicion of SBP due to underlying catheter for weekly paracentesis. -Peritoneal fluid (09/21) color yellow, appearance hazy, WBC 697, RBC 396, polynuclear WBCs 48%, mononuclear WBC 52%, peritoneal total protein less than 2, peritoneal albumin less than 1, peritoneal LDH 51, peritoneal glucose 117, peritoneal amylase 32. -Peritoneal fluid (09/23) color yellow, peritoneal appearance easy, WBC 1347, RBC 4000, peritoneal polynuclear WBC 80%, mononuclear WBC 20%, total protein less than 2, albumin 1.3, LDH 233, glucose 72, Amylase 37 -Was on Ceftriaxone 2g (09/20-09/24) Plan: -Continue albumin 25% 4 times daily for 3 days -Continue levofloxacin (09/24- -Follow peritoneal fluid culture. -Consulted infectious disease, appreciate recommendations -Will consider escalation of antibiotics per ID recommendations -Will consider removal/exchange of catheter as it is a suspected source of infection # Euvolemic hypoosmolar hyponatremia -Patient denies any dizziness, is alert oriented x 4. Patient does have history of decompensated liver failure, has distended abdomen ascitic pattern. CTAP shows prominent ascites. -Patient had ascitic fluid drainage earlier today in a.m., patient has weekly paracentesis has Pleurx catheter. -Patient sodium 118 in ED. Patient is on Lasix and spironolactone at home. Plan: -Fluid restriction 1500 cc -Patient started on salt tablets twice daily by nephrology -Consulted nephrology, appreciate recommendations -Sodium checks every 4 hours with goal correction of 4 to 6 mEq in 24 hours. -Hold home diuretics # Decompensated liver cirrhosis # Thrombocytopenia # History of esophageal gastric varices # History of GI bleed # Hypertension # Chronic normocytic anemia -Patient was recently admitted for GI bleed, had EGD with banding done, patient also had large internal hemorrhoids on colonoscopy had banding done. -Hemoglobin is stable, denies any blood in stool, denies any bloody emesis. -Patient is on midodrine 5 3 times daily at home, platelet count 102, coagulation panel PT 18.9, INR 1.8, APTT 48.4 on admission. -Patient was transfused 1 unit PRBC -09/21 Plan: -Hemoglobin stable, will continue to monitor -Patient's hemoglobin dropped likely in setting of IV fluids. -Patient denies any blood in stool, vomit or urine. -Resumed home dose of midodrine 5 three times daily. -Started on lactulose 10 g twice daily # Metabolic acidosis with compensatory respiratory alkalosis, resolved -Patient's pCO2 13.9, VBG shows pCO2 30 -Patient's metabolic acidosis likely in setting of cirrhosis. -Patient was given bicarb x 50 mEq on admission Plan: -Monitor CMP in a.m. DVT prophylaxis: SCDs GI prophylaxis: Protonix IV daily Diet: Low-sodium diet, fluid restriction 1500 cc Lines: Peripheral IV Code status: Full code Case discussed with Attending Dr. Esquivel and senior Dr Wilson PGY3. Tammy Brand PGY1 Attending Provider Attestation/Addendum I have discussed and was present for the essential components of the history, physical examination, diagnosis, and treatment plan with the resident. I agree with the patient's care as documented by the resident and amended herein by me. Erickson Esquivel DO. Although this document has been carefully reviewed, there may still be some phonetic and other typographical errors. These errors are purely grammatical due to imperfections in the software program and should not be construed in any way to compromise the substance of the patient's medical care during this visit.
[2024-09-25] VITALS (11 sets, daily range): BP systolic 95–107; BP diastolic 57–69; PULSE 84–105; RESP 16–20; TEMP 36.8–37.5; O2SAT 96–100
[2024-09-25] MEDS: HYDROcodone/APAP 5/325 TABLET 1 TAB PO ×2 (05:29→19:25)
[2024-09-25] MEDS: MIDODRINE 5 MG TABLET PO ×2 (05:30→14:17)
[2024-09-25 05:50] LABS: Basophils % (Auto) 0 % (0-2.5); Eosinophils # (Auto) 0.1 Thou/mm3 (0.0-0.5); Eosinophils % (Auto) 1 % (0-10); Immature Granulocytes % (Auto) 1 % (0-0); Lymphocytes # (Auto) 1.2 Thou/mm3 (1.0-4.8); Lymphocytes % (Auto) 12 % (10-50); Mean Corpuscular HGB Conc 36.2 g/dl (31.0-37.0); Mean Corpuscular Volume 91 fL (80-100); Monocytes # (Auto) 1.3 Thou/mm3 (0.0-0.8); Monocytes % (Auto) 14 % (0-12); Neutrophils # (Auto) 6.8 Thou/mm3 (1.8-7.7); Neutrophils % (Auto) 72 % (37-80); Nucleated Red Blood Cell % 0 /100 WBC (0); RDW Standard Deviation 59.1 fL (35.1-43.9); Red Blood Count 2.18 Miln/mm3 (4.50-5.90); White Blood Count 9.4 Thou/mm3 (3.8-10.6)
[2024-09-25 05:52] LABS: Hemoglobin 7.2 g/dL (13.5-16.0); Platelet Count 55 Thou/mm3 (140-440)
[2024-09-25 05:56] LABS: Hematocrit 19.9 % (41.0-53.0)
[2024-09-25 05:57] LABS: Slide Review Platelets confirmed
[2024-09-25 06:23] LABS: INR 2.9 (0.9-1.3); Prothrombin Time 29.1 Seconds (9.0-12.2)
[2024-09-25 06:30] LABS: Partial Thromboplastin Time 103.9 Seconds (22.0-36.0)
[2024-09-25 07:03] LABS: Alanine Aminotransferase 13 U/L (10-49); Albumin, Serum 3.5 gm/dL (3.5-5.0); Albumin/Globulin Ratio 1.9 (1.2-2.2); Alkaline Phosphatase 61 U/L (46-116); Anion Gap 10 (7-16); Aspartate Amino Transferase 20 U/L (0-34); BUN/Creatinine Ratio 17 Ratio (12-20); Blood Urea Nitrogen 33 mg/dL (9-23); Calcium 9.1 mg/dL (8.3-10.6); Calcium (Corrected) 9.5 mg/dL (8.5-10.1); Carbon Dioxide 18.4 mMol/L (20.0-31.0); Chloride 99 mMol/L (98-107); Creatinine (Component) 1.9 mg/dL (0.6-1.3); Globulin 1.8 gm/dL (2.3-3.5); Glucose 99 mg/dL (74-106); Osmolality,Calculated 262 (275-295); Potassium 3.2 mMol/L (3.4-5.1); Sodium 127 mMol/L (136-145); Total Protein 5.3 gm/dL (5.7-8.2); eGFR 42 See Note
[2024-09-25] MEDS: ALBUMIN HUMAN 25% IVPB 25 GM/100 ML BTL IV ×4 (07:53→20:58)
[2024-09-25 08:12] LABS: HIV (1&2) Antibody Rapid Non-Reactive
[2024-09-25] MEDS: POTASSIUM CHLORIDE 10% 20 MEQ/15 ML UDC 40 MEQ PO (10:33)
[2024-09-25] MEDS: CITRIC ACID/SODIUM CITR 15 ML UDC (BICITRA) 30 ML PO ×2 (10:37→20:58)
[2024-09-25] MEDS: POTASSIUM CHLORIDE 20 mEq TABCR 40 MEQ PO (10:37)
[2024-09-25] MEDS: LACTULOSE SYRUP 20 GM/30 ML UDC 10 GM PO ×2 (10:38→20:56)
[2024-09-25] MEDS: LEVOFLOXACIN 250 MG TABLET 500 MG PO (10:39)
[2024-09-25] MEDS: PANTOPRAZOLE 40 MG TABLET PO (10:40)
[2024-09-25] MEDS: SODIUM CHLORIDE 1 GM TABLET PO ×2 (10:40→20:57)
[2024-09-25 11:27] LABS: Bilirubin,Total 5.6 mg/dL (0.3-1.2)
--- NOTE | 2024-09-25 11:54 | ESPR_ITS ---
Documentation for date of: 09/25/24 Subjective Subjective Interval history: Mr. 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 Patient initially presented due to concern of dislodging paracentesis pleurx catheter, patient's sister at bedside reported that he was confused at home and possibly tugged on the catheter, does report increased redness and discomfort from around the catheter site. Patient did have paracentesis earlier this morning where adequate amount of fluid was removed, during workup in ED patient's sodium came back 118 and hospitalist team was consulted due to concern of hyponatremia. Patient denies any dizziness, is alert oriented x 4. Patient otherwise has no complaints and reports he is feeling fine. Patient denies any chest pain, shortness of breath and headache. CTAP in ED showed cirrhosis, prominent ascites and Pleurx drainage catheter in satisfactory position. Patient was given lactulose 40 g in ED, catheter was stitched in place in ED. Patient hyponatremia initially improved with fluid restriction to 126. Concern for overcorrection, patient was placed on D5W with hyponatremia trending down to 123. Nephrology consulted for closer management patient's hyponatremia. Patient seen and examined on the floors. Patient resting comfortably in bed. Patient appeared clinically hypovolemic, dry: Dry mucous membranes, no edema, lungs clear to auscultation. Patient did have notable ascites with abdominal distention. Suspect intravascular depletion, patient receiving albumin. Sodium remained at 123. BUN 20, creatinine 1.3, eGFR >60. Urine sodium <10. Plan to resume fluid restriction, monitor sodium levels. 09/22: Patient seen and examined in floors, resting comfortable in bed. Condition largely unchanged from yesterday. Dry mucous membranes, no edema, lungs clear to auscultation, notable ascites and abdominal distention. Sodium increased to 128, currently 126. BUN 16, creatinine 1.0, eGFR >60. Recommend continuing fluid restriction. 09/23: Patient seen and examined on floors, resting comfortable in bed. Dry mucous membranes, no edema, lungs clear to auscultation. Notable ascites abdominal distention. Small amount of fluid leaking around Pleurx catheter site. Sodium 127/126 overnight. Potassium 2.8, 40 mEq p.o. and 40 mEq IV given. Bicarb 17.8, BUN 19, creatinine 1.4, eGFR >60. Suspect hypokalemia due to diarrhea, lactulose usage. Will initiate salt tabs. 09/24: Patient seen and examined the floors, resting comfortably in bed. Dry mucous membranes, no edema, lungs clear to auscultation. Besides abdominal distention, notably improved s/p paracentesis. Sodium stable at 127. Potassium 3.8, bicarb 19.1, BUN 27, creatinine 1.9, eGFR 42. Patient was hypotensive overnight, albumin ordered after falling off. Suspect DOMINGUEZ due to renal ischemia. Ordered albumin, 1 L normal saline at 80 mL/h. 09/25: Patient seen and examined on the floors, resting comfortably in bed. No edema, lungs clear to auscultation. Sodium stable at 127, salt tabs increased from once daily to twice daily. Patient was formally on low-sodium diet, transition to regular diet. Potassium 3.2, bicarb 18.4, BUN 33, creatinine 1.9, eGFR 42. Plans to move patient's Pleurx catheter today due to infection. Exam Vital Signs Temp Pulse Resp BP Pulse Ox O2 Del Method O2 Flow Rate 99.0 F 101 H 19 103/58 L 96 Room Air 0 09/25/24 08:00 09/25/24 09:00 09/25/24 08:00 09/25/24 08:00 09/25/24 08:00 09/25/24 08:00 09/24/24 04:00 Narrative Exam PE: Gen: Well-developed and well-nourished. HEENT: NCAT, PERRLA, EOMI, anicteric conjunctivae. Dry mucous membranes. CVS: normal S1 and S2. RRR. No M/R/G. Resp: CTA B/L. No rhonchi, rales, crackles or wheezing. Abd: Abdominal distention, ascites. Umbilical hernia. Pleurx catheter in right lower quadrant, tender, small amount of fluid leaking from entry site. MSK: Good ROM in BUE & BLE. No edema or rash. Neuro: CN II-XII grossly intact. Strength 5/5 in BUE & BLE. Alert and oriented x3. Psych: appropriate mood and affect. Objective Labs 09/25/24 05:25 09/25/24 05:25 Labs: Laboratory Results - last 24 hr 09/25/24 05:25 WBC 9.4 RBC 2.18 L Hgb 7.2 L Hct 19.9 L* MCV 91 MCH 33.0 MCHC 36.2 RDW Std Deviation 59.1 H Plt Count 55 L Neut % (Auto) 72 Lymph % (Auto) 12 [place] % (Auto) 14 H Eos % (Auto) 1 Baso % (Auto) 0 Neut # (Auto) 6.8 Lymph # (Auto) 1.2 [place] # (Auto) 1.3 H Eos # (Auto) 0.1 Baso # (Auto) 0.0 Immature Gran # (Auto) 0.10 H Absolute Nucleated RBC 0.00 Immature Gran % 1 H Nucleated RBC % 0 PT 29.1 H INR 2.9 H APTT 103.9 H* D Sodium 127 L Potassium 3.2 L D Chloride 99 Carbon Dioxide 18.4 L Anion Gap 10 BUN 33 H Creatinine 1.9 H Estim Creat Clear Calc 37.0 L eGFR 42 L BUN/Creatinine Ratio 17 Glucose 99 Calculated Osmolality 262 L Calcium 9.1 Corrected Calcium 9.5 Total Bilirubin 5.6 H AST 20 ALT 13 Alkaline Phosphatase 61 Total Protein 5.3 L Albumin 3.5 Globulin 1.8 L Albumin/Globulin Ratio 1.9 HIV 1&2 Antibody Rapid Non-Reactive Misc Test Result Platelets confirmed ABG Interpretation ABG results: 09/20/24 14:21 VBG pH 7.34 VBG pCO2 30 L VBG pO2 35 VBG Base Excess -9 L Quality Measures Quality Measures VTE prophylaxis Assessment & Plan Assessment Current Active Medications: Generic Name Dose Route Start Last Admin Trade Name Donna PRN Reason Stop Dose Admin Acetaminophen 650 mg 09/20/24 23:40 Acetaminophen 325 Mg Tablet PO 10/20/24 15:21 Q6H PRN Pain (1-3) and Fever >101.5 Hydrocodone Bitart/Acetaminophen 1 tab 09/24/24 13:43 09/25/24 05:29 Hydrocodone/Apap 5/325 Tablet PO 09/29/24 13:42 1 tab Q6HR PRN Administration PAIN SCALE 7-10 (Severe Artificial Tears 0 drop 09/24/24 17:39 Artificial Tears 225 Drop/15 Ml Btl BOTH EYES 10/24/24 17:38 PRN PRN TO KEEP EYES MOIST Citric Acid/Sodium Citrate 30 ml 09/21/24 09:00 09/25/24 10:37 Citric Acid/Sodium Citr 15 Ml Udc (Bicitra) PO 10/21/24 08:59 30 ml BID JOSELIN Administration Albumin Human 25 gm in 100 mls @ 100 mls/hr 09/24/24 08:15 09/25/24 07:53 Albuminar-25 Ivpb IV 09/27/24 08:14 100 mls/hr QID JOSELIN Administration Lactulose 10 gm 09/20/24 21:00 09/25/24 10:38 Lactulose Syrup 20 Gm/30 Ml Udc PO 10/20/24 20:59 10 gm BID JOSELIN Administration Protocol Levofloxacin 500 mg 09/25/24 09:00 09/25/24 10:39 Levofloxacin 250 Mg Tablet PO 09/27/24 12:00 500 mg QDAY JOSELIN Administration Midodrine 10 mg 09/25/24 21:00 Midodrine 5 Mg Tablet PO 10/25/24 20:59 BID JOSELIN Ondansetron HCl 4 mg 09/20/24 15:22 Ondansetron Inj 2 Mg/Ml Inj 2 Ml IV 10/20/24 15:21 Q6H PRN NAUSEA OR VOMITING Protocol Pantoprazole Sodium 40 mg 09/21/24 09:15 09/25/24 10:40 Pantoprazole 40 Mg Tablet PO 10/20/24 15:29 40 mg QDAY JOSELIN Administration Sodium Chloride 1 gm 09/25/24 09:00 09/25/24 10:40 Sodium Chloride 1 Gm Tablet PO 10/25/24 08:59 1 gm BID JOSELIN Administration Plan 54-year-old male with history of 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 # Euvolemic hypoosmolar hyponatremia Patient denies any dizziness, is alert oriented x 4. Patient does have history of decompensated liver failure, has distended abdomen ascitic pattern. CTAP shows prominent ascites. Patient had ascitic fluid drainage before admission. Patient has weekly paracentesis has Pleurx catheter. Patient sodium 118 in ED. Patient is on Lasix and spironolactone at home. Patient sodium increased to 126 with fluid restriction, patient started D5W due to concern for overcorrection. D5W stopped and sodium reached 123. Urine sodium <10. Sodium improved to 128, then down to 126 with fluid restriction. Sodium stable at 127. Plan: -Fluid restriction 1500 cc -Hold home diuretics -Salt tabs 1 g twice daily #DOMINGUEZ, suspect due to ischemia Patient had decreased creatinine and eGFR, previously within normal limits. Patient had hypotension overnight following paracentesis. Clinically appears hypovolemic. Received albumin and 1 L normal saline. -Albumin 25 gm IV 4 times daily -Avoid nephrotoxic medications -Monitor daily renal function #Ascites #Tenderness around Pleurx catheter #?Spontaneous bacterial peritonitis # Leukocytosis # Metabolic acidosis with compensatory respiratory alkalosis # Decompensated liver cirrhosis # Thrombocytopenia # History of esophageal gastric varices # History of GI bleed # Hypertension # Chronic normocytic anemia Management as per primary team. DVT prophylaxis: SCDs GI prophylaxis: Protonix IV daily Diet: Low-sodium diet, fluid restriction 1500 cc Lines: Peripheral IV Code status: Full code Thank you for allowing me to participate in the care of this patient. Plan of care discussed with Dr. Banegas. Burton Perales MD PGY-1 Attending Provider Attestation/Addendum Patient seen and examined with resident physician Dr. Perales. Note reviewed, agree with findings and recommendations. Creatinine slightly elevated still. Patient has been n.p.o. Will give 1 L gentle IV fluids. Spoke to sister at bedside
[2024-09-25] MEDS: POTASSIUM CHLORIDE 20 mEq TABCR PO (13:09)
[2024-09-25] MEDS: PHYTONADIONE INJ 10 MG/ML AMP SC (13:09)
--- NOTE | 2024-09-25 13:14 | ESPR_ITS ---
<Statement entered by Erik Wilson DO - 09/25/24 15:23> Senior attestation: Patient was examined and case was reviewed with team including attending physician. Note reviewed, I agree with most of its contents and agree with the patient's care. Midodrine dose increased to 10mg BID. Will continue PO levofloxacin following ID recommendations. Nephrology team following, salt tabs increased to twice daily and advancement to regular diet. Pending removal of abdominal pleurx catheter. Erik Wilson DO PGY-3 Documentation for date of: 09/25/24 Subjective Subjective Interval history: Patient seen at bedside. Patient complains of mild abdominal tenderness. Peritoneal culture pending. Changed midodrine dosing to 10 mg twice daily. Will continue levofloxacin per ID recommendations. Will continue salt tablets per nephrology Diet changed to regular with fluid restriction Creatinine 1.9 today. Will continue to monitor patient, denies any hematemesis hematuria and blood in stool hemoglobin stable. Exam Vital Signs Temp Pulse Resp BP Pulse Ox O2 Del Method O2 Flow Rate 98.3 F 84 18 98/57 L 99 Room Air 0 09/25/24 12:00 09/25/24 12:00 09/25/24 12:00 09/25/24 12:00 09/25/24 12:00 09/25/24 12:00 09/24/24 04:00 Narrative Exam Physical Exam General: Awake and in no acute distress. Conversational and non-toxic appearing. HEENT: Normocephalic, atraumatic, mucous membranes moist. Heart: Regular rate and rhythm, no murmurs. Lungs: Clear to auscultation with no wheezing or crackles. Abdomen: Soft, distended, ascitic pattern, tenderness noted in all 4 quadrants, positive bowel sounds. Umbilical hernia noted. PleurX catheter intact with dressing noted around. Neurologic: Alert and oriented x3, no gross neurological deficit, and patient able to move all 4 extremities. Extremities: No edema. Skin: No rash or ecchymoses. Objective Labs 09/26/24 05:10 09/26/24 05:10 Labs: Laboratory Results - last 24 hr 09/25/24 05:25 WBC 9.4 RBC 2.18 L Hgb 7.2 L Hct 19.9 L* MCV 91 MCH 33.0 MCHC 36.2 RDW Std Deviation 59.1 H Plt Count 55 L Neut % (Auto) 72 Lymph % (Auto) 12 [place] % (Auto) 14 H Eos % (Auto) 1 Baso % (Auto) 0 Neut # (Auto) 6.8 Lymph # (Auto) 1.2 [place] # (Auto) 1.3 H Eos # (Auto) 0.1 Baso # (Auto) 0.0 Immature Gran # (Auto) 0.10 H Absolute Nucleated RBC 0.00 Immature Gran % 1 H Nucleated RBC % 0 PT 29.1 H INR 2.9 H APTT 103.9 H* D Sodium 127 L Potassium 3.2 L D Chloride 99 Carbon Dioxide 18.4 L Anion Gap 10 BUN 33 H Creatinine 1.9 H Estim Creat Clear Calc 37.0 L eGFR 42 L BUN/Creatinine Ratio 17 Glucose 99 Calculated Osmolality 262 L Calcium 9.1 Corrected Calcium 9.5 Total Bilirubin 5.6 H AST 20 ALT 13 Alkaline Phosphatase 61 Total Protein 5.3 L Albumin 3.5 Globulin 1.8 L Albumin/Globulin Ratio 1.9 HIV 1&2 Antibody Rapid Non-Reactive Misc Test Result Platelets confirmed ABG Interpretation ABG results: 09/20/24 14:21 VBG pH 7.34 VBG pCO2 30 L VBG pO2 35 VBG Base Excess -9 L Quality Measures Quality Measures VTE prophylaxis Assessment & Plan Assessment Current Active Medications: Generic Name Dose Route Start Last Admin Trade Name Donna PRN Reason Stop Dose Admin Acetaminophen 650 mg 09/20/24 23:40 Acetaminophen 325 Mg Tablet PO 10/20/24 15:21 Q6H PRN Pain (1-3) and Fever >101.5 Hydrocodone Bitart/Acetaminophen 1 tab 09/24/24 13:43 09/25/24 05:29 Hydrocodone/Apap 5/325 Tablet PO 09/29/24 13:42 1 tab Q6HR PRN Administration PAIN SCALE 7-10 (Severe Artificial Tears 0 drop 09/24/24 17:39 Artificial Tears 225 Drop/15 Ml Btl BOTH EYES 10/24/24 17:38 PRN PRN TO KEEP EYES MOIST Citric Acid/Sodium Citrate 30 ml 09/21/24 09:00 09/25/24 10:37 Citric Acid/Sodium Citr 15 Ml Udc (Bicitra) PO 10/21/24 08:59 30 ml BID JOSELIN Administration Albumin Human 25 gm in 100 mls @ 100 mls/hr 09/24/24 08:15 09/25/24 13:10 Albuminar-25 Ivpb IV 09/27/24 08:14 100 mls/hr QID JOSELIN Administration Lactulose 10 gm 09/20/24 21:00 09/25/24 10:38 Lactulose Syrup 20 Gm/30 Ml Udc PO 10/20/24 20:59 10 gm BID JOSELIN Administration Protocol Levofloxacin 500 mg 09/25/24 09:00 09/25/24 10:39 Levofloxacin 250 Mg Tablet PO 09/27/24 12:00 500 mg QDAY JOSELIN Administration Midodrine 10 mg 09/25/24 21:00 Midodrine 5 Mg Tablet PO 10/25/24 20:59 BID JOSELIN Ondansetron HCl 4 mg 09/20/24 15:22 Ondansetron Inj 2 Mg/Ml Inj 2 Ml IV 10/20/24 15:21 Q6H PRN NAUSEA OR VOMITING Protocol Pantoprazole Sodium 40 mg 09/21/24 09:15 09/25/24 10:40 Pantoprazole 40 Mg Tablet PO 10/20/24 15:29 40 mg QDAY JOSELIN Administration Sodium Chloride 1 gm 09/25/24 09:00 09/25/24 10:40 Sodium Chloride 1 Gm Tablet PO 10/25/24 08:59 1 gm BID JOSELIN Administration Plan Assessment and Plan Summary:Mr. 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 -Patient does not have any abdominal pain, high suspicion of SBP due to underlying catheter for weekly paracentesis. -Peritoneal fluid (09/21) color yellow, appearance hazy, WBC 697, RBC 396, polynuclear WBCs 48%, mononuclear WBC 52%, peritoneal total protein less than 2, peritoneal albumin less than 1, peritoneal LDH 51, peritoneal glucose 117, peritoneal amylase 32. -Peritoneal fluid (09/23) color yellow, peritoneal appearance easy, WBC 1347, RBC 4000, peritoneal polynuclear WBC 80%, mononuclear WBC 20%, total protein less than 2, albumin 1.3, LDH 233, glucose 72, Amylase 37 -Was on Ceftriaxone 2g (09/20-09/24) Plan: -Continue albumin 25% 4 times daily -Continue levofloxacin (09/24- -Follow peritoneal fluid culture. -Patient scheduled for removal of catheter on Friday, possible insertion of new catheter as patient wants to go home on hospice care. -Consulted infectious disease, appreciate recommendations -Will consider escalation of antibiotics per ID recommendations -Will consider removal/exchange of catheter as it is a suspected source of infection # Euvolemic hypoosmolar hyponatremia -Patient denies any dizziness, is alert oriented x 4. Patient does have history of decompensated liver failure, has distended abdomen ascitic pattern. CTAP shows prominent ascites. -Patient had ascitic fluid drainage earlier today in a.m., patient has weekly paracentesis has Pleurx catheter. -Patient sodium 118 in ED. Patient is on Lasix and spironolactone at home. Plan: -Fluid restriction 1500 cc -Patient started on salt tablets twice daily by nephrology -Diet changed to regular diet instead of low-sodium -Consulted nephrology, appreciate recommendations -Sodium checks every 4 hours with goal correction of 4 to 6 mEq in 24 hours. -Hold home diuretics # Decompensated liver cirrhosis # Thrombocytopenia # History of esophageal gastric varices # History of GI bleed # Hypertension # Chronic normocytic anemia -Patient was recently admitted for GI bleed, had EGD with banding done, patient also had large internal hemorrhoids on colonoscopy had banding done. -Hemoglobin is stable, denies any blood in stool, denies any bloody emesis. -Patient is on midodrine 5 3 times daily at home, platelet count 102, coagulation panel PT 18.9, INR 1.8, APTT 48.4 on admission. -Patient was transfused 1 unit PRBC -09/21 Plan: -Hemoglobin stable, will continue to monitor -Patient's hemoglobin dropped likely in setting of IV fluids. -Patient denies any blood in stool, vomit or urine. -Started on midodrine 10 mg twice daily. -Started on lactulose 10 g twice daily # Metabolic acidosis with compensatory respiratory alkalosis, resolved -Patient's pCO2 13.9, VBG shows pCO2 30 -Patient's metabolic acidosis likely in setting of cirrhosis. -Patient was given bicarb x 50 mEq on admission Plan: -Monitor CMP in a.m. DVT prophylaxis: SCDs GI prophylaxis: Protonix IV daily Diet: Low-sodium diet, fluid restriction 1500 cc Lines: Peripheral IV Code status: Full code Case discussed with Attending Dr. Madden and senior Dr Wilson PGY3. Tammy Brand PGY1 Attending Provider Attestation/Addendum Face to face evaluation was performed by me. I have personally seen and examined the patient. I discussed the assessment and plan with the entire medicine team. I reviewed available medical records, imaging studies, laboratory results. I agree with the above subjective data, objective findings, assessment and plan except as corrected by me or noted below Hyponatremia, seems to be acute on chronic ascites due to alcoholic liver cirrhosis End-stage liver disease SBP Abdominal distention and pain due to above Chronic anemia Continue empiric antibiotics, follow infectious's recommendations, antibiotics switched to p.o. levofloxacin, follow-up ascites labs. Plan to remove Pleurx catheter on Friday by interventional radiology, discussion was done with patient and plan is to discharge from hospital and resume home hospice and no new Pleurx catheter placement for now. Patient wants to remain full code at this point Hyponatremia seems to be stable, nephrology following appreciate recommendation we will go up on his sodium tablet from once a day to twice a day also increase his midodrine from 5 3 times daily to 10 twice daily for now
[2024-09-25] MEDS: Artificial Tears 225 DROP/15 ML BTL BOTH EYES (13:19)
[2024-09-25] MEDS: MIDODRINE 5 MG TABLET 10 MG PO (20:57)
[2024-09-26] VITALS (11 sets, daily range): BP systolic 94–106; BP diastolic 54–67; PULSE 79–99; RESP 17–18; TEMP 36.9–37.4; O2SAT 97–100
[2024-09-26 01:00] LABS: Hepatitis A Antibody IgM Non Reactive (Non React); Hepatitis B Core Antibody IgM Reactive (Non React); Hepatitis B Surface Antigen Non Reactive (Non React); Hepatitis C Antibody Non Reactive (Non React)
[2024-09-26] MEDS: HYDROcodone/APAP 5/325 TABLET 1 TAB PO ×4 (01:41→20:26)
[2024-09-26 05:55] LABS: Basophils % (Auto) 0 % (0-2.5); Eosinophils % (Auto) 0 % (0-10); Immature Granulocytes % (Auto) 1 % (0-0); Lymphocytes # (Auto) 1.2 Thou/mm3 (1.0-4.8); Lymphocytes % (Auto) 14 % (10-50); Mean Corpuscular HGB Conc 35.7 g/dl (31.0-37.0); Mean Corpuscular Hemoglobin 32.6 pg (25.0-35.0); Mean Corpuscular Volume 91 fL (80-100); Monocytes # (Auto) 1.3 Thou/mm3 (0.0-0.8); Monocytes % (Auto) 16 % (0-12); Neutrophils # (Auto) 5.8 Thou/mm3 (1.8-7.7); Neutrophils % (Auto) 68 % (37-80); Nucleated Red Blood Cell % 0 /100 WBC (0); RDW Standard Deviation 59.2 fL (35.1-43.9); Red Blood Count 2.18 Miln/mm3 (4.50-5.90); White Blood Count 8.5 Thou/mm3 (3.8-10.6)
[2024-09-26 06:06] LABS: Hematocrit 19.9 % (41.0-53.0)
[2024-09-26 06:07] LABS: Hemoglobin 7.1 g/dL (13.5-16.0); Platelet Count 50 Thou/mm3 (140-440)
[2024-09-26] MEDS: ALBUMIN HUMAN 25% IVPB 25 GM/100 ML BTL IV ×4 (06:07→20:27)
[2024-09-26 06:11] LABS: INR 2.9 (0.9-1.3); Prothrombin Time 29.9 Seconds (9.0-12.2)
[2024-09-26 06:18] LABS: Alanine Aminotransferase 12 U/L (10-49); Albumin, Serum 3.8 gm/dL (3.5-5.0); Albumin/Globulin Ratio 2.1 (1.2-2.2); Alkaline Phosphatase 58 U/L (46-116); Anion Gap 10 (7-16); Aspartate Amino Transferase 25 U/L (0-34); BUN/Creatinine Ratio 20 Ratio (12-20); Bilirubin,Total 5.9 mg/dL (0.3-1.2); Blood Urea Nitrogen 32 mg/dL (9-23); Calcium 9.3 mg/dL (8.3-10.6); Calcium (Corrected) 9.5 mg/dL (8.5-10.1); Carbon Dioxide 18.9 mMol/L (20.0-31.0); Chloride 98 mMol/L (98-107); Creatinine (Component) 1.6 mg/dL (0.6-1.3); Globulin 1.8 gm/dL (2.3-3.5); Glucose 109 mg/dL (74-106); Osmolality,Calculated 263 (275-295); Potassium 3.9 mMol/L (3.4-5.1); Sodium 127 mMol/L (136-145); Total Protein 5.6 gm/dL (5.7-8.2); eGFR 51 See Note
[2024-09-26 07:15] LABS: Slide Review Platelets confirmed
[2024-09-26] MEDS: LEVOFLOXACIN 250 MG TABLET 500 MG PO (10:02)
[2024-09-26] MEDS: CITRIC ACID/SODIUM CITR 15 ML UDC (BICITRA) 30 ML PO ×2 (10:02→20:27)
[2024-09-26] MEDS: SODIUM CHLORIDE 1 GM TABLET PO ×2 (10:02→20:26)
[2024-09-26] MEDS: LACTULOSE SYRUP 20 GM/30 ML UDC 10 GM PO ×2 (10:02→20:27)
[2024-09-26] MEDS: PANTOPRAZOLE 40 MG TABLET PO (10:02)
[2024-09-26] MEDS: MIDODRINE 5 MG TABLET 10 MG PO ×2 (10:03→20:26)
--- NOTE | 2024-09-26 11:42 | PD.RESPRO ---
Documentation for date of: 09/26/24 Subjective Subjective Interval history: Mr. Henry is a 54-year-old male with history of 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 Patient initially presented due to concern of dislodging paracentesis pleurx catheter, patient's sister at bedside reported that he was confused at home and possibly tugged on the catheter, does report increased redness and discomfort from around the catheter site. Patient did have paracentesis earlier this morning where adequate amount of fluid was removed, during workup in ED patient's sodium came back 118 and hospitalist team was consulted due to concern of hyponatremia. Patient denies any dizziness, is alert oriented x 4. Patient otherwise has no complaints and reports he is feeling fine. Patient denies any chest pain, shortness of breath and headache. CTAP in ED showed cirrhosis, prominent ascites and Pleurx drainage catheter in satisfactory position. Patient was given lactulose 40 g in ED, catheter was stitched in place in ED. Patient hyponatremia initially improved with fluid restriction to 126. Concern for overcorrection, patient was placed on D5W with hyponatremia trending down to 123. Nephrology consulted for closer management patient's hyponatremia. Patient seen and examined on the floors. Patient resting comfortably in bed. Patient appeared clinically hypovolemic, dry: Dry mucous membranes, no edema, lungs clear to auscultation. Patient did have notable ascites with abdominal distention. Suspect intravascular depletion, patient receiving albumin. Sodium remained at 123. BUN 20, creatinine 1.3, eGFR >60. Urine sodium <10. Plan to resume fluid restriction, monitor sodium levels. 09/22: Patient seen and examined in floors, resting comfortable in bed. Condition largely unchanged from yesterday. Dry mucous membranes, no edema, lungs clear to auscultation, notable ascites and abdominal distention. Sodium increased to 128, currently 126. BUN 16, creatinine 1.0, eGFR >60. Recommend continuing fluid restriction. 09/23: Patient seen and examined on floors, resting comfortable in bed. Dry mucous membranes, no edema, lungs clear to auscultation. Notable ascites abdominal distention. Small amount of fluid leaking around Pleurx catheter site. Sodium 127/126 overnight. Potassium 2.8, 40 mEq p.o. and 40 mEq IV given. Bicarb 17.8, BUN 19, creatinine 1.4, eGFR >60. Suspect hypokalemia due to diarrhea, lactulose usage. Will initiate salt tabs. 09/24: Patient seen and examined the floors, resting comfortably in bed. Dry mucous membranes, no edema, lungs clear to auscultation. Besides abdominal distention, notably improved s/p paracentesis. Sodium stable at 127. Potassium 3.8, bicarb 19.1, BUN 27, creatinine 1.9, eGFR 42. Patient was hypotensive overnight, albumin ordered after falling off. Suspect DOMINGUEZ due to renal ischemia. Ordered albumin, 1 L normal saline at 80 mL/h. 09/25: Patient seen and examined on the floors, resting comfortably in bed. No edema, lungs clear to auscultation. Sodium stable at 127, salt tabs increased from once daily to twice daily. Patient was formally on low-sodium diet, transition to regular diet. Potassium 3.2, bicarb 18.4, BUN 33, creatinine 1.9, eGFR 42. Plans to remove patient's Pleurx catheter due to infection. 09/26: Patient seen and examined on the floors, resting comfortably in bed. No edema, lungs clear to auscultation, abdomen distended with excessive leakage of fluid around Pleurx catheter. Sodium stable at 127. Potassium 3.9, BUN 32, creatinine 1.6, eGFR 51. Plans to remove patient's Pleurx catheter. Exam Vital Signs Temp Pulse Resp BP Pulse Ox O2 Del Method O2 Flow Rate 98.6 F 94 17 96/54 L 98 Room Air 0 09/26/24 08:00 09/26/24 10:03 09/26/24 08:00 09/26/24 10:03 09/26/24 08:00 09/26/24 08:00 09/24/24 04:00 Narrative Exam PE: Gen: Well-developed and well-nourished. HEENT: NCAT, PERRLA, EOMI, anicteric conjunctivae. CVS: normal S1 and S2. RRR. No M/R/G. Resp: CTA B/L. No rhonchi, rales, crackles or wheezing. Abd: Abdominal distention, ascites. Umbilical hernia. Pleurx catheter in right lower quadrant, tender, moderate amount of fluid leaking from entry site. MSK: Good ROM in BUE & BLE. No edema or rash. Neuro: CN II-XII grossly intact. Strength 5/5 in BUE & BLE. Alert and oriented x3. Psych: appropriate mood and affect. Objective Labs 09/26/24 05:10 09/26/24 05:10 Labs: Laboratory Results - last 24 hr 09/25/24 09/26/24 05:25 05:10 WBC 8.5 RBC 2.18 L Hgb 7.1 L Hct 19.9 L* MCV 91 MCH 32.6 MCHC 35.7 RDW Std Deviation 59.2 H Plt Count 50 L Neut % (Auto) 68 Lymph % (Auto) 14 [place] % (Auto) 16 H Eos % (Auto) 0 Baso % (Auto) 0 Neut # (Auto) 5.8 Lymph # (Auto) 1.2 [place] # (Auto) 1.3 H Eos # (Auto) 0.0 Baso # (Auto) 0.0 Immature Gran # (Auto) 0.10 H Absolute Nucleated RBC 0.00 Immature Gran % 1 H Nucleated RBC % 0 PT 29.9 H INR 2.9 H APTT 103.0 H* Sodium 127 L Potassium 3.9 D Chloride 98 Carbon Dioxide 18.9 L Anion Gap 10 BUN 32 H Creatinine 1.6 H Estim Creat Clear Calc 44.0 L eGFR 51 L BUN/Creatinine Ratio 20 Glucose 109 H Calculated Osmolality 263 L Calcium 9.3 Corrected Calcium 9.5 Total Bilirubin 5.9 H AST 25 ALT 12 Alkaline Phosphatase 58 Total Protein 5.6 L Albumin 3.8 Globulin 1.8 L Albumin/Globulin Ratio 2.1 Hepatitis A IgM Ab Non Reactive Hep Bs Antigen Non Reactive Hep B Core IgM Ab Reactive A Hepatitis C Antibody Non Reactive Misc Test Result Platelets confirmed ABG Interpretation ABG results: 09/20/24 14:21 VBG pH 7.34 VBG pCO2 30 L VBG pO2 35 VBG Base Excess -9 L Quality Measures Quality Measures VTE prophylaxis Assessment & Plan Assessment Current Active Medications: Generic Name Dose Route Start Last Admin Trade Name Freq PRN Reason Stop Dose Admin Acetaminophen 650 mg 09/20/24 23:40 Acetaminophen 325 Mg Tablet PO 10/20/24 15:21 Q6H PRN Pain (1-3) and Fever >101.5 Hydrocodone Bitart/Acetaminophen 1 tab 09/24/24 13:43 09/26/24 07:55 Hydrocodone/Apap 5/325 Tablet PO 09/29/24 13:42 1 tab Q6HR PRN Administration PAIN SCALE 7-10 (Severe Artificial Tears 0 drop 09/24/24 17:39 09/25/24 13:19 Artificial Tears 225 Drop/15 Ml Btl BOTH EYES 10/24/24 17:38 2 drop PRN PRN Administration TO KEEP EYES MOIST Citric Acid/Sodium Citrate 30 ml 09/21/24 09:00 09/26/24 10:02 Citric Acid/Sodium Citr 15 Ml Udc (Bicitra) PO 10/21/24 08:59 30 ml BID JOSELIN Administration Albumin Human 25 gm in 100 mls @ 100 mls/hr 09/24/24 08:15 09/26/24 06:07 Albuminar-25 Ivpb IV 09/27/24 08:14 100 mls/hr QID JOSELIN Administration Lactulose 10 gm 09/20/24 21:00 09/26/24 10:02 Lactulose Syrup 20 Gm/30 Ml Udc PO 10/20/24 20:59 10 gm BID JOSELIN Administration Protocol Levofloxacin 500 mg 09/25/24 09:00 09/26/24 10:02 Levofloxacin 250 Mg Tablet PO 09/27/24 12:00 500 mg QDAY JOSELIN Administration Midodrine 10 mg 09/25/24 21:00 09/26/24 10:03 Midodrine 5 Mg Tablet PO 10/25/24 20:59 10 mg BID JOSELIN Administration Ondansetron HCl 4 mg 09/20/24 15:22 Ondansetron Inj 2 Mg/Ml Inj 2 Ml IV 10/20/24 15:21 Q6H PRN NAUSEA OR VOMITING Protocol Pantoprazole Sodium 40 mg 09/21/24 09:15 09/26/24 10:02 Pantoprazole 40 Mg Tablet PO 10/20/24 15:29 40 mg QDAY JOSELIN Administration Sodium Chloride 1 gm 09/25/24 09:00 09/26/24 10:02 Sodium Chloride 1 Gm Tablet PO 10/25/24 08:59 1 gm BID JOSELIN Administration Plan 54-year-old male with history of 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 # Euvolemic hypoosmolar hyponatremia Patient denies any dizziness, is alert oriented x 4. Patient does have history of decompensated liver failure, has distended abdomen ascitic pattern. CTAP shows prominent ascites. Patient had ascitic fluid drainage before admission. Patient has weekly paracentesis has Pleurx catheter. Patient sodium 118 in ED. Patient is on Lasix and spironolactone at home. Patient sodium increased to 126 with fluid restriction, patient started D5W due to concern for overcorrection. D5W stopped and sodium reached 123. Urine sodium <10. Sodium improved to 128, then down to 127 with fluid restriction. Plan: -Fluid restriction 1500 cc -Hold home diuretics -Salt tabs 1 g twice daily Liberalize salt intake #DOMINGUEZ, suspect due to ischemia Patient had decreased creatinine and eGFR, previously within normal limits. Patient had hypotension overnight following paracentesis. Clinically appears hypovolemic. Received albumin and 1 L normal saline. Kidney function is improving day by day. -Albumin 25 gm IV 4 times daily -Avoid nephrotoxic medications -Monitor daily renal function #Ascites #Tenderness around Pleurx catheter #?Spontaneous bacterial peritonitis # Leukocytosis # Metabolic acidosis with compensatory respiratory alkalosis # Decompensated liver cirrhosis # Thrombocytopenia # History of esophageal gastric varices # History of GI bleed # Hypertension # Chronic normocytic anemia Management as per primary team. DVT prophylaxis: SCDs GI prophylaxis: Protonix IV daily Diet: Regular, fluid restriction 1500 cc Lines: Peripheral IV Code status: Full code Thank you for allowing me to participate in the care of this patient. Plan of care discussed with Dr. Banegas. Burton Perales MD PGY-1 Attending Provider Attestation/Addendum Patient seen and examined with resident physician Dr. Perales. Note reviewed, agree with findings and recommendations. Sodium stable at 127. Asymptomatic. Secondary to underlying liver disease. Continue with salt tablets, liberalize sodium intake. Awaiting Pleurx catheter removal.
--- NOTE | 2024-09-26 12:46 | ESPR_ITS ---
<Statement entered by Erik Wilson DO - 09/26/24 15:14> Senior attestation: Patient was examined and case was reviewed with team including attending physician. Note reviewed, I agree with most of its contents and agree with the patient's care. Pending abdominal pleurx catheter removal, anticipated on 09/27 by IR team, will be placed NPO after midnight tonight. Patient in agreement with plan, anticipate discharge in 24-48 hours. Sodium levels 127 today, nephrology team following and guiding salt tablet treatment. Erik Wilson DO PGY-3 Documentation for date of: 09/26/24 Subjective Subjective Interval history: Patient seen at bedside. Will continue to monitor patient sodium Sodium stable at 127, currently on salt tablets Patient scheduled for IR cath removal in a.m., n.p.o. after midnight Patient complains of mild pain, controlled on [place] Peritoneal fluid culture positive for GPC, pending sensitivity Will continue to monitor patient Exam Vital Signs Temp Pulse Resp BP Pulse Ox O2 Del Method O2 Flow Rate 99.1 F 93 18 96/55 L 98 Room Air 0 09/26/24 12:00 09/26/24 12:00 09/26/24 12:00 09/26/24 12:00 09/26/24 12:00 09/26/24 12:00 09/26/24 12:00 Narrative Exam Physical Exam General: Awake and in no acute distress. Conversational and non-toxic appearing. HEENT: Normocephalic, atraumatic, mucous membranes moist. Heart: Regular rate and rhythm, no murmurs. Lungs: Clear to auscultation with no wheezing or crackles. Abdomen: Soft, distended, ascitic pattern, tenderness noted in all 4 quadrants, positive bowel sounds. Umbilical hernia noted. PleurX catheter intact with dressing noted around. Neurologic: Alert and oriented x3, no gross neurological deficit, and patient able to move all 4 extremities. Extremities: No edema. Skin: No rash or ecchymoses. Objective Labs 09/26/24 05:10 09/26/24 05:10 Labs: Laboratory Results - last 24 hr 09/25/24 09/26/24 05:25 05:10 WBC 8.5 RBC 2.18 L Hgb 7.1 L Hct 19.9 L* MCV 91 MCH 32.6 MCHC 35.7 RDW Std Deviation 59.2 H Plt Count 50 L Neut % (Auto) 68 Lymph % (Auto) 14 [place] % (Auto) 16 H Eos % (Auto) 0 Baso % (Auto) 0 Neut # (Auto) 5.8 Lymph # (Auto) 1.2 [place] # (Auto) 1.3 H Eos # (Auto) 0.0 Baso # (Auto) 0.0 Immature Gran # (Auto) 0.10 H Absolute Nucleated RBC 0.00 Immature Gran % 1 H Nucleated RBC % 0 PT 29.9 H INR 2.9 H APTT 103.0 H* Sodium 127 L Potassium 3.9 D Chloride 98 Carbon Dioxide 18.9 L Anion Gap 10 BUN 32 H Creatinine 1.6 H Estim Creat Clear Calc 44.0 L eGFR 51 L BUN/Creatinine Ratio 20 Glucose 109 H Calculated Osmolality 263 L Calcium 9.3 Corrected Calcium 9.5 Total Bilirubin 5.9 H AST 25 ALT 12 Alkaline Phosphatase 58 Total Protein 5.6 L Albumin 3.8 Globulin 1.8 L Albumin/Globulin Ratio 2.1 Hepatitis A IgM Ab Non Reactive Hep Bs Antigen Non Reactive Hep B Core IgM Ab Reactive A Hepatitis C Antibody Non Reactive Misc Test Result Platelets confirmed ABG Interpretation ABG results: 09/20/24 14:21 VBG pH 7.34 VBG pCO2 30 L VBG pO2 35 VBG Base Excess -9 L Quality Measures Quality Measures VTE prophylaxis Assessment & Plan Assessment Current Active Medications: Generic Name Dose Route Start Last Admin Trade Name Freq PRN Reason Stop Dose Admin Acetaminophen 650 mg 09/20/24 23:40 Acetaminophen 325 Mg Tablet PO 10/20/24 15:21 Q6H PRN Pain (1-3) and Fever >101.5 Hydrocodone Bitart/Acetaminophen 1 tab 09/24/24 13:43 09/26/24 07:55 Hydrocodone/Apap 5/325 Tablet PO 09/29/24 13:42 1 tab Q6HR PRN Administration PAIN SCALE 7-10 (Severe Artificial Tears 0 drop 09/24/24 17:39 09/25/24 13:19 Artificial Tears 225 Drop/15 Ml Btl BOTH EYES 10/24/24 17:38 2 drop PRN PRN Administration TO KEEP EYES MOIST Citric Acid/Sodium Citrate 30 ml 09/21/24 09:00 09/26/24 10:02 Citric Acid/Sodium Citr 15 Ml Udc (Bicitra) PO 10/21/24 08:59 30 ml BID JOSELIN Administration Albumin Human 25 gm in 100 mls @ 100 mls/hr 09/24/24 08:15 09/26/24 06:07 Albuminar-25 Ivpb IV 09/27/24 08:14 100 mls/hr QID JOSELIN Administration Lactulose 10 gm 09/20/24 21:00 09/26/24 10:02 Lactulose Syrup 20 Gm/30 Ml Udc PO 10/20/24 20:59 10 gm BID JOSELIN Administration Protocol Levofloxacin 500 mg 09/25/24 09:00 09/26/24 10:02 Levofloxacin 250 Mg Tablet PO 09/27/24 12:00 500 mg QDAY JOSELIN Administration Midodrine 10 mg 09/25/24 21:00 09/26/24 10:03 Midodrine 5 Mg Tablet PO 10/25/24 20:59 10 mg BID JOSELIN Administration Ondansetron HCl 4 mg 09/20/24 15:22 Ondansetron Inj 2 Mg/Ml Inj 2 Ml IV 10/20/24 15:21 Q6H PRN NAUSEA OR VOMITING Protocol Pantoprazole Sodium 40 mg 09/21/24 09:15 09/26/24 10:02 Pantoprazole 40 Mg Tablet PO 10/20/24 15:29 40 mg QDAY JOSELIN Administration Sodium Chloride 1 gm 09/25/24 09:00 09/26/24 10:02 Sodium Chloride 1 Gm Tablet PO 10/25/24 08:59 1 gm BID JOSELIN Administration Plan Assessment and Plan Summary:Mr. 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 -Patient does not have any abdominal pain, high suspicion of SBP due to underlying catheter for weekly paracentesis. -Peritoneal fluid (09/21) color yellow, appearance hazy, WBC 697, RBC 396, polynuclear WBCs 48%, mononuclear WBC 52%, peritoneal total protein less than 2, peritoneal albumin less than 1, peritoneal LDH 51, peritoneal glucose 117, peritoneal amylase 32. -Peritoneal fluid (09/23) color yellow, peritoneal appearance easy, WBC 1347, RBC 4000, peritoneal polynuclear WBC 80%, mononuclear WBC 20%, total protein less than 2, albumin 1.3, LDH 233, glucose 72, Amylase 37 -Was on Ceftriaxone 2g (09/20-09/24) -Peritoneal fluid culture positive for GPC, pending sensitivity identification Plan: -Scheduled for paracentesis catheter removal in a.m. -N.p.o. after midnight -Continue albumin 25% 4 times daily -Continue levofloxacin (09/24- -peritoneal fluid culture positive for GPC, will follow for sensitivity and identification -Patient is scheduled for removal of catheter on Friday, wants to go home on hospice care. -Consulted infectious disease, appreciate recommendations -Will consider escalation of antibiotics per ID recommendations -Will consider removal/exchange of catheter as it is a suspected source of infection -Referred to hospice # Euvolemic hypoosmolar hyponatremia -Patient denies any dizziness, is alert oriented x 4. Patient does have history of decompensated liver failure, has distended abdomen ascitic pattern. CTAP shows prominent ascites. -Patient had ascitic fluid drainage earlier today in a.m., patient has weekly paracentesis has Pleurx catheter. -Patient sodium 118 in ED. Patient is on Lasix and spironolactone at home. Plan: -Fluid restriction 1500 cc -Patient started on salt tablets twice daily by nephrology -Diet changed to regular diet instead of low-sodium -Consulted nephrology, appreciate recommendations -Sodium checks every 4 hours with goal correction of 4 to 6 mEq in 24 hours. -Hold home diuretics # Decompensated liver cirrhosis # Thrombocytopenia # History of esophageal gastric varices # History of GI bleed # Hypertension # Chronic normocytic anemia -Patient was recently admitted for GI bleed, had EGD with banding done, patient also had large internal hemorrhoids on colonoscopy had banding done. -Hemoglobin is stable, denies any blood in stool, denies any bloody emesis. -Patient is on midodrine 5 3 times daily at home, platelet count 102, coagulation panel PT 18.9, INR 1.8, APTT 48.4 on admission. -Patient was transfused 1 unit PRBC -09/21 Plan: -Hemoglobin stable, will continue to monitor -Patient's hemoglobin dropped likely in setting of IV fluids. -Patient denies any blood in stool, vomit or urine. -Started on midodrine 10 mg twice daily. -Started on lactulose 10 g twice daily # Metabolic acidosis with compensatory respiratory alkalosis, resolved -Patient's pCO2 13.9, VBG shows pCO2 30 -Patient's metabolic acidosis likely in setting of cirrhosis. -Patient was given bicarb x 50 mEq on admission Plan: -Monitor CMP in a.m. DVT prophylaxis: SCDs GI prophylaxis: Protonix IV daily Diet: Low-sodium diet, fluid restriction 1500 cc Lines: Peripheral IV Code status: Full code Case discussed with Attending Dr. Madden and senior Dr Wilson PGY3. Tammy Brand PGY1
--- NOTE | 2024-09-26 13:00 | PD.ADDPROG ---
Addendum Progress Note Addendum Date of report being addended: 09/26/24 Narrative: Face to face evaluation was performed by me. I have personally seen and examined the patient. I discussed the assessment and plan with the entire medicine team. I reviewed available medical records, imaging studies, laboratory results. I agree with the above subjective data, objective findings, assessment and plan except as corrected by me or noted below Hyponatremia, seems to be acute on chronic ascites due to alcoholic liver cirrhosis End-stage liver disease SBP Abdominal distention and pain due to above Chronic anemia Patient awake in bed watching TV. Denies any new events. Hemoglobin 7.1, monitor closely if drops below 7 transfuse with PRBC from medicine standpoint. Avoid blood thinners. Continue empiric antibiotics, follow infectious's recommendations, antibiotics switched to p.o. levofloxacin, follow-up ascites labs. Plan to remove Pleurx catheter on Friday by interventional radiology, discussion was done with patient and plan is to discharge from hospital and resume home hospice and no new Pleurx catheter placement for now. Patient wants to remain full code at this point Hyponatremia seems to be stable, nephrology following appreciate recommendation continue with sodium tablets twice daily, midodrine 10 twice daily for now
[2024-09-26] MEDS: PHYTONADIONE INJ 10 MG/ML AMP SC (15:03)
[2024-09-26] MEDS: Artificial Tears 225 DROP/15 ML BTL BOTH EYES ×2 (15:05→20:28)
[2024-09-27] VITALS (18 sets, daily range): BP systolic 96–114; BP diastolic 56–71; PULSE 72–102; RESP 15–19; TEMP 36.3–37.4; O2SAT 93–100
[2024-09-27] MEDS: HYDROcodone/APAP 5/325 TABLET 1 TAB PO ×4 (02:29→23:49)
[2024-09-27 05:35] LABS: Basophils % (Auto) 0 % (0-2.5); Lymphocytes # (Auto) 1.3 Thou/mm3 (1.0-4.8); Lymphocytes % (Auto) 18 % (10-50); Mean Corpuscular Volume 93 fL (80-100); Neutrophils # (Auto) 4.6 Thou/mm3 (1.8-7.7); Neutrophils % (Auto) 65 % (37-80); Nucleated Red Blood Cell % 0 /100 WBC (0)
[2024-09-27 05:37] LABS: Eosinophils % (Auto) 1 % (0-10); Immature Granulocytes % (Auto) 1 % (0-0); Immature Granulocytes Auto 0.08 Thou/mm3 (0.00-0.00); Mean Corpuscular HGB Conc 35.8 g/dl (31.0-37.0); Mean Corpuscular Hemoglobin 33.3 pg (25.0-35.0); Monocytes # (Auto) 1.1 Thou/mm3 (0.0-0.8); Monocytes % (Auto) 15 % (0-12); RDW Standard Deviation 59.7 fL (35.1-43.9); Red Blood Count 2.07 Miln/mm3 (4.50-5.90); White Blood Count 7.1 Thou/mm3 (3.8-10.6)
[2024-09-27 05:49] LABS: Platelet Count 48 Thou/mm3 (140-440)
[2024-09-27 05:50] LABS: Hemoglobin 6.9 g/dL (13.5-16.0)
[2024-09-27 05:51] LABS: Hematocrit 19.3 % (41.0-53.0); Slide Review Platelets confirmed
[2024-09-27 05:55] LABS: INR 3.1 (0.9-1.3)
[2024-09-27 06:02] LABS: Prothrombin Time 31.3 Seconds (9.0-12.2)
[2024-09-27 06:03] LABS: Partial Thromboplastin Time 111.5 Seconds (22.0-36.0)
[2024-09-27 06:23] LABS: Alanine Aminotransferase 11 U/L (10-49); Albumin, Serum 3.9 gm/dL (3.5-5.0); Albumin/Globulin Ratio 2.2 (1.2-2.2); Alkaline Phosphatase 50 U/L (46-116); Anion Gap 12 (7-16); Aspartate Amino Transferase 27 U/L (0-34); BUN/Creatinine Ratio 20 Ratio (12-20); Bilirubin,Total 6.5 mg/dL (0.3-1.2); Blood Urea Nitrogen 32 mg/dL (9-23); Calcium 9.4 mg/dL (8.3-10.6); Calcium (Corrected) 9.5 mg/dL (8.5-10.1); Carbon Dioxide 18.4 mMol/L (20.0-31.0); Chloride 98 mMol/L (98-107); Creatinine (Component) 1.6 mg/dL (0.6-1.3); Globulin 1.8 gm/dL (2.3-3.5); Glucose 105 mg/dL (74-106); Osmolality,Calculated 263 (275-295); Sodium 128 mMol/L (136-145); Total Protein 5.7 gm/dL (5.7-8.2); eGFR 51 See Note
[2024-09-27] MEDS: ALBUMIN HUMAN 25% IVPB 25 GM/100 ML BTL IV (06:36)
[2024-09-27 08:13] LABS: Hematocrit 19.3 % (41.0-53.0); Hemoglobin 6.8 g/dL (13.5-16.0)
--- NOTE | 2024-09-27 09:22 | PC.SS ---
Follow up note: Pt will return home at d/c. Removal PleurX cath. Pt will receive blood transfusion.
[2024-09-27] MEDS: MIDODRINE 5 MG TABLET 10 MG PO ×2 (09:28→20:32)
[2024-09-27] MEDS: SODIUM CHLORIDE 1 GM TABLET PO ×2 (09:28→20:32)
[2024-09-27] MEDS: LEVOFLOXACIN 250 MG TABLET 500 MG PO (09:29)
[2024-09-27] MEDS: CITRIC ACID/SODIUM CITR 15 ML UDC (BICITRA) 30 ML PO ×2 (09:29→20:32)
[2024-09-27] MEDS: LACTULOSE SYRUP 20 GM/30 ML UDC 10 GM PO ×2 (09:29→20:32)
[2024-09-27] MEDS: PANTOPRAZOLE 40 MG TABLET PO (09:29)
[2024-09-27] MEDS: Artificial Tears 225 DROP/15 ML BTL BOTH EYES (09:32)
--- NOTE | 2024-09-27 09:37 | PD.RESPRO ---
Documentation for date of: 09/27/24 Subjective Subjective Interval history: Mr. 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 Patient initially presented due to concern of dislodging paracentesis pleurx catheter, patient's sister at bedside reported that he was confused at home and possibly tugged on the catheter, does report increased redness and discomfort from around the catheter site. Patient did have paracentesis earlier this morning where adequate amount of fluid was removed, during workup in ED patient's sodium came back 118 and hospitalist team was consulted due to concern of hyponatremia. Patient denies any dizziness, is alert oriented x 4. Patient otherwise has no complaints and reports he is feeling fine. Patient denies any chest pain, shortness of breath and headache. CTAP in ED showed cirrhosis, prominent ascites and Pleurx drainage catheter in satisfactory position. Patient was given lactulose 40 g in ED, catheter was stitched in place in ED. Patient hyponatremia initially improved with fluid restriction to 126. Concern for overcorrection, patient was placed on D5W with hyponatremia trending down to 123. Nephrology consulted for closer management patient's hyponatremia. Patient seen and examined on the floors. Patient resting comfortably in bed. Patient appeared clinically hypovolemic, dry: Dry mucous membranes, no edema, lungs clear to auscultation. Patient did have notable ascites with abdominal distention. Suspect intravascular depletion, patient receiving albumin. Sodium remained at 123. BUN 20, creatinine 1.3, eGFR >60. Urine sodium <10. Plan to resume fluid restriction, monitor sodium levels. 09/22: Patient seen and examined in floors, resting comfortable in bed. Condition largely unchanged from yesterday. Dry mucous membranes, no edema, lungs clear to auscultation, notable ascites and abdominal distention. Sodium increased to 128, currently 126. BUN 16, creatinine 1.0, eGFR >60. Recommend continuing fluid restriction. 09/23: Patient seen and examined on floors, resting comfortable in bed. Dry mucous membranes, no edema, lungs clear to auscultation. Notable ascites abdominal distention. Small amount of fluid leaking around Pleurx catheter site. Sodium 127/126 overnight. Potassium 2.8, 40 mEq p.o. and 40 mEq IV given. Bicarb 17.8, BUN 19, creatinine 1.4, eGFR >60. Suspect hypokalemia due to diarrhea, lactulose usage. Will initiate salt tabs. 09/24: Patient seen and examined the floors, resting comfortably in bed. Dry mucous membranes, no edema, lungs clear to auscultation. Besides abdominal distention, notably improved s/p paracentesis. Sodium stable at 127. Potassium 3.8, bicarb 19.1, BUN 27, creatinine 1.9, eGFR 42. Patient was hypotensive overnight, albumin ordered after falling off. Suspect DOMINUGEZ due to renal ischemia. Ordered albumin, 1 L normal saline at 80 mL/h. 09/25: Patient seen and examined on the floors, resting comfortably in bed. No edema, lungs clear to auscultation. Sodium stable at 127, salt tabs increased from once daily to twice daily. Patient was formally on low-sodium diet, transition to regular diet. Potassium 3.2, bicarb 18.4, BUN 33, creatinine 1.9, eGFR 42. Plans to remove patient's Pleurx catheter due to infection. 09/26: Patient seen and examined on the floors, resting comfortably in bed. No edema, lungs clear to auscultation, abdomen distended with excessive leakage of fluid around Pleurx catheter. Sodium stable at 127. Potassium 3.9, BUN 32, creatinine 1.6, eGFR 51. Plans to remove patient's Pleurx catheter. 09/27: Patient seen and examined on the floors, resting comfortably in bed. No edema. Abdomen distended with excessive leakage of fluid from around Pluerx Catheter. Sodium stable at 128. Exam Vital Signs Temp Pulse Resp BP Pulse Ox O2 Del Method O2 Flow Rate 97.9 F 99 17 102/61 98 Room Air 0 09/27/24 08:00 09/27/24 09:28 09/27/24 08:00 09/27/24 09:28 09/27/24 08:00 09/27/24 08:00 09/26/24 12:00 Narrative Exam PE: Gen: Well-developed and well-nourished. HEENT: NCAT, PERRLA, EOMI, anicteric conjunctivae. CVS: normal S1 and S2. RRR. No M/R/G. Resp: CTA B/L. No rhonchi, rales, crackles or wheezing. Abd: Abdominal distention, ascites. Umbilical hernia. Pleurx catheter in right lower quadrant, tender, moderate amount of fluid leaking from entry site. MSK: Good ROM in BUE & BLE. No edema or rash. Neuro: CN II-XII grossly intact. Strength 5/5 in BUE & BLE. Alert and oriented x3. Psych: appropriate mood and affect. Objective Labs 09/27/24 19:27 09/27/24 04:33 Labs: Laboratory Results - last 24 hr 09/27/24 09/27/24 04:33 07:22 WBC 7.1 RBC 2.07 L Hgb 6.9 L* 6.8 L* Hct 19.3 L* 19.3 L* MCV 93 MCH 33.3 MCHC 35.8 RDW Std Deviation 59.7 H Plt Count 48 L Neut % (Auto) 65 Lymph % (Auto) 18 [place] % (Auto) 15 H Eos % (Auto) 1 Baso % (Auto) 0 Neut # (Auto) 4.6 Lymph # (Auto) 1.3 [place] # (Auto) 1.1 H Eos # (Auto) 0.0 Baso # (Auto) 0.0 Immature Gran # (Auto) 0.08 H Absolute Nucleated RBC 0.00 Immature Gran % 1 H Nucleated RBC % 0 PT 31.3 H* INR 3.1 H APTT 111.5 H* Sodium 128 L Potassium 4.0 Chloride 98 Carbon Dioxide 18.4 L Anion Gap 12 BUN 32 H Creatinine 1.6 H Estim Creat Clear Calc 44.0 L eGFR 51 L BUN/Creatinine Ratio 20 Glucose 105 Calculated Osmolality 263 L Calcium 9.4 Corrected Calcium 9.5 Total Bilirubin 6.5 H D AST 27 ALT 11 Alkaline Phosphatase 50 Total Protein 5.7 Albumin 3.9 Globulin 1.8 L Albumin/Globulin Ratio 2.2 Misc Test Result Platelets confirmed Blood Bank Wristband ID Yes ABG Interpretation ABG results: 09/20/24 14:21 VBG pH 7.34 VBG pCO2 30 L VBG pO2 35 VBG Base Excess -9 L Quality Measures Quality Measures VTE prophylaxis Assessment & Plan Assessment Current Active Medications: Generic Name Dose Route Start Last Admin Trade Name Freq PRN Reason Stop Dose Admin Acetaminophen 650 mg 09/20/24 23:40 Acetaminophen 325 Mg Tablet PO 10/20/24 15:21 Q6H PRN Pain (1-3) and Fever >101.5 Hydrocodone Bitart/Acetaminophen 1 tab 09/24/24 13:43 09/27/24 09:36 Hydrocodone/Apap 5/325 Tablet PO 09/29/24 13:42 1 tab Q6HR PRN Administration PAIN SCALE 7-10 (Severe Artificial Tears 0 drop 09/24/24 17:39 09/27/24 09:32 Artificial Tears 225 Drop/15 Ml Btl BOTH EYES 10/24/24 17:38 2 drop PRN PRN Administration TO KEEP EYES MOIST Citric Acid/Sodium Citrate 30 ml 09/21/24 09:00 09/27/24 09:29 Citric Acid/Sodium Citr 15 Ml Udc (Bicitra) PO 10/21/24 08:59 30 ml BID JOSELIN Administration Lactulose 10 gm 09/20/24 21:00 09/27/24 09:29 Lactulose Syrup 20 Gm/30 Ml Udc PO 10/20/24 20:59 10 gm BID JOSELIN Administration Protocol Levofloxacin 500 mg 09/25/24 09:00 09/27/24 09:29 Levofloxacin 250 Mg Tablet PO 09/27/24 12:00 500 mg QDAY JOSELIN Administration Midodrine 10 mg 09/25/24 21:00 09/27/24 09:28 Midodrine 5 Mg Tablet PO 10/25/24 20:59 10 mg BID JOSELIN Administration Ondansetron HCl 4 mg 09/20/24 15:22 Ondansetron Inj 2 Mg/Ml Inj 2 Ml IV 10/20/24 15:21 Q6H PRN NAUSEA OR VOMITING Protocol Pantoprazole Sodium 40 mg 09/21/24 09:15 09/27/24 09:29 Pantoprazole 40 Mg Tablet PO 10/20/24 15:29 40 mg QDAY JOSELIN Administration Sodium Chloride 1 gm 09/25/24 09:00 09/27/24 09:28 Sodium Chloride 1 Gm Tablet PO 10/25/24 08:59 1 gm BID JOSELIN Administration Plan 54-year-old male with history of 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 # Euvolemic hypoosmolar hyponatremia Patient denies any dizziness, is alert oriented x 4. Patient does have history of decompensated liver failure, has distended abdomen ascitic pattern. CTAP shows prominent ascites. Patient had ascitic fluid drainage before admission. Patient has weekly paracentesis has Pleurx catheter. Patient sodium 118 in ED. Patient is on Lasix and spironolactone at home. Patient sodium increased to 126 with fluid restriction, patient started D5W due to concern for overcorrection. D5W stopped and sodium reached 123. Urine sodium <10. Sodium improved to 128, then down to 127 with fluid restriction. Plan: -Fluid restriction 1500 cc -Hold home diuretics -Salt tabs 1 g twice daily -Liberalize salt intake #DOMINGUEZ, suspect due to ischemia Patient had decreased creatinine and eGFR, previously within normal limits. Patient had hypotension overnight following paracentesis. Clinically appears hypovolemic. Received albumin and 1 L normal saline. Kidney function is improving day by day. -Albumin 25 gm IV 4 times daily -Avoid nephrotoxic medications -Monitor daily renal function #Ascites #Tenderness around Pleurx catheter #?Spontaneous bacterial peritonitis # Leukocytosis # Metabolic acidosis with compensatory respiratory alkalosis # Decompensated liver cirrhosis # Thrombocytopenia # History of esophageal gastric varices # History of GI bleed # Hypertension # Chronic normocytic anemia Management as per primary team. DVT prophylaxis: SCDs GI prophylaxis: Protonix IV daily Diet: Regular, fluid restriction 1500 cc Lines: Peripheral IV Code status: Full code Thank you for allowing me to participate in the care of this patient. Plan of care discussed with Dr. Banegas. Burton Perales MD PGY-1 Attending Provider Attestation/Addendum Patient seen and examined with resident physician Dr. Perales. Note reviewed, agree with findings and recommendations. Patient currently seen in medical floor. Noted to have ascites. Sodium stable. Continue with salt tablets. Renal wheeler stable for discharge once Pleurx catheter is removed. Renal will see as needed. Will follow him as an outpatient.
--- NOTE | 2024-09-27 09:43 | PD.IDPROG ---
Subjective Subjective Interval history: cx noted. abd was benign. on all po regimen. here at discretion of primary team. cx are late Exam Vital Signs Temp Pulse Resp BP Pulse Ox O2 Del Method O2 Flow Rate 97.9 F 99 17 102/61 98 Room Air 0 09/27/24 08:00 09/27/24 09:28 09/27/24 08:00 09/27/24 09:28 09/27/24 08:00 09/27/24 08:00 09/26/24 12:00 Narrative Exam limited visit Objective - Internal Medicine Labs 09/27/24 07:22 09/27/24 04:33 Labs: Laboratory Results - last 24 hr 09/27/24 09/27/24 04:33 07:22 WBC 7.1 RBC 2.07 L Hgb 6.9 L* 6.8 L* Hct 19.3 L* 19.3 L* MCV 93 MCH 33.3 MCHC 35.8 RDW Std Deviation 59.7 H Plt Count 48 L Neut % (Auto) 65 Lymph % (Auto) 18 [place] % (Auto) 15 H Eos % (Auto) 1 Baso % (Auto) 0 Neut # (Auto) 4.6 Lymph # (Auto) 1.3 [place] # (Auto) 1.1 H Eos # (Auto) 0.0 Baso # (Auto) 0.0 Immature Gran # (Auto) 0.08 H Absolute Nucleated RBC 0.00 Immature Gran % 1 H Nucleated RBC % 0 PT 31.3 H* INR 3.1 H APTT 111.5 H* Sodium 128 L Potassium 4.0 Chloride 98 Carbon Dioxide 18.4 L Anion Gap 12 BUN 32 H Creatinine 1.6 H Estim Creat Clear Calc 44.0 L eGFR 51 L BUN/Creatinine Ratio 20 Glucose 105 Calculated Osmolality 263 L Calcium 9.4 Corrected Calcium 9.5 Total Bilirubin 6.5 H D AST 27 ALT 11 Alkaline Phosphatase 50 Total Protein 5.7 Albumin 3.9 Globulin 1.8 L Albumin/Globulin Ratio 2.2 Misc Test Result Platelets confirmed Blood Bank Wristband ID Yes ABG Interpretation ABG results: 09/20/24 14:21 VBG pH 7.34 VBG pCO2 30 L VBG pO2 35 VBG Base Excess -9 L Assessment & Plan A&P Narrative possible device related peritoneal inflammation with benign exam, but abnormal cell counts from peritoneal fluid possible sbp. hx suggestive of hepatic encephalopathy cirrhosis. likely etoh related avoid etoh changed to po levaquin thru friday for presumptive sbp. cx usually neg if held this long, they need to go into bc bottles right away or will be negative. will review Friday if remains some favor [facility] quinolone rx for prevention of sbp, but that is based on a single center study with a high rate of sbp that came down with regular quinolone use. as such, it is a personal choice. gpc noted. of uncertain significance as reported very late. so may be contaminated and his exam last week was benign Time Spent With Patient Time: Total time spent is greater than 50% in coordination of care (as documented) at patient's floor/unit and/or counseling patient:
--- NOTE | 2024-09-27 10:30 | PC.NURSE ---
labs reviewed with Dr. Bowen (with charge nurse Ghazala) procedure cancelled at this time, Pt will need blood transfusion/platelets before proceeding with removal of pleur x catheter procedure. RN called and made aware.
[2024-09-27] MEDS: PHYTONADIONE INJ 10 MG/ML AMP SC (13:52)
--- NOTE | 2024-09-27 15:54 | ESPR_ITS ---
Documentation for date of: 09/27/24 Subjective Subjective Interval history: Overnight events, lab/imaging results, and notes reviewed. Patient examined bedside, denies any complaints this morning and is interested in paracentesis or pleural drainage. Hgb noted to drop to 6.9 this morning, 6.8 on repeat HH. Platelets also decrease to 48. Pleurx cath removal was planned this morning with IR team however given hgb and platelet levels, will tranfuse 1 unit of pRBC and 1 unit of platelets, will attempt to cath removal tomorrow 09/28, npo after midnight tonight. Exam Vital Signs Temp Pulse Resp BP Pulse Ox O2 Del Method O2 Flow Rate 98.3 F 99 17 100/59 L 93 L Room Air 0 09/27/24 15:21 09/27/24 15:21 09/27/24 15:21 09/27/24 15:21 09/27/24 15:21 09/27/24 12:00 09/27/24 15:21 Narrative Exam General: AOx3, cooperative, in no acute distress HEENT: Atraumatic/normocephalic, [place], Heart: RRR, S1 and S2 without clicks or murmurs Lungs: Clear on auscultation bilaterally, no difficulty breathing Abdomen: Distended but soft, generalized tenderness, Pleurx catheter in place with dressing Skin: Intact, no cyanosis or edema noted. Neuro: No focal neurological deficits noted Objective Labs 09/27/24 07:22 09/27/24 04:33 Labs: Laboratory Results - last 24 hr 09/27/24 09/27/24 04:33 07:22 WBC 7.1 RBC 2.07 L Hgb 6.9 L* 6.8 L* Hct 19.3 L* 19.3 L* MCV 93 MCH 33.3 MCHC 35.8 RDW Std Deviation 59.7 H Plt Count 48 L Neut % (Auto) 65 Lymph % (Auto) 18 [place] % (Auto) 15 H Eos % (Auto) 1 Baso % (Auto) 0 Neut # (Auto) 4.6 Lymph # (Auto) 1.3 [place] # (Auto) 1.1 H Eos # (Auto) 0.0 Baso # (Auto) 0.0 Immature Gran # (Auto) 0.08 H Absolute Nucleated RBC 0.00 Immature Gran % 1 H Nucleated RBC % 0 PT 31.3 H* INR 3.1 H APTT 111.5 H* Sodium 128 L Potassium 4.0 Chloride 98 Carbon Dioxide 18.4 L Anion Gap 12 BUN 32 H Creatinine 1.6 H Estim Creat Clear Calc 44.0 L eGFR 51 L BUN/Creatinine Ratio 20 Glucose 105 Calculated Osmolality 263 L Calcium 9.4 Corrected Calcium 9.5 Total Bilirubin 6.5 H D AST 27 ALT 11 Alkaline Phosphatase 50 Total Protein 5.7 Albumin 3.9 Globulin 1.8 L Albumin/Globulin Ratio 2.2 Misc Test Result Platelets confirmed Blood Type O Positive Antibody Screen NEGATIVE Crossmatch See Detail Blood Bank Wristband ID Yes Blood Bank Comment PLATP Ready ABG Interpretation ABG results: 09/20/24 14:21 VBG pH 7.34 VBG pCO2 30 L VBG pO2 35 VBG Base Excess -9 L Quality Measures Quality Measures VTE prophylaxis (SCDs) Assessment & Plan Assessment Current Active Medications: Generic Name Dose Route Start Last Admin Trade Name Freq PRN Reason Stop Dose Admin Acetaminophen 650 mg 09/20/24 23:40 Acetaminophen 325 Mg Tablet PO 10/20/24 15:21 Q6H PRN Pain (1-3) and Fever >101.5 Hydrocodone Bitart/Acetaminophen 1 tab 09/24/24 13:43 09/27/24 09:36 Hydrocodone/Apap 5/325 Tablet PO 09/29/24 13:42 1 tab Q6HR PRN Administration PAIN SCALE 7-10 (Severe Artificial Tears 0 drop 09/24/24 17:39 09/27/24 09:32 Artificial Tears 225 Drop/15 Ml Btl BOTH EYES 10/24/24 17:38 2 drop PRN PRN Administration TO KEEP EYES MOIST Citric Acid/Sodium Citrate 30 ml 09/21/24 09:00 09/27/24 09:29 Citric Acid/Sodium Citr 15 Ml Udc (Bicitra) PO 10/21/24 08:59 30 ml BID JOSELIN Administration Lactulose 10 gm 09/20/24 21:00 09/27/24 09:29 Lactulose Syrup 20 Gm/30 Ml Udc PO 10/20/24 20:59 10 gm BID JOSELIN Administration Protocol Midodrine 10 mg 09/25/24 21:00 09/27/24 09:28 Midodrine 5 Mg Tablet PO 10/25/24 20:59 10 mg BID JOSELIN Administration Ondansetron HCl 4 mg 09/20/24 15:22 Ondansetron Inj 2 Mg/Ml Inj 2 Ml IV 10/20/24 15:21 Q6H PRN NAUSEA OR VOMITING Protocol Pantoprazole Sodium 40 mg 09/21/24 09:15 09/27/24 09:29 Pantoprazole 40 Mg Tablet PO 10/20/24 15:29 40 mg QDAY JOSELIN Administration Sodium Chloride 1 gm 09/25/24 09:00 09/27/24 09:28 Sodium Chloride 1 Gm Tablet PO 10/25/24 08:59 1 gm BID JOSELIN Administration Plan Mr. 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 # Recurrent Ascites 2/ ESLD # Spontaneous bacterial peritonitis # Leukocytosis -Patient was on hospice prior, admits to being on hospice currently, reports tenderness and discomfort around paracentesis catheter, at high risk of infection due to the catheter. -Patient does not have any abdominal pain, high suspicion of SBP due to underlying catheter for weekly paracentesis. -Peritoneal fluid (09/21) color yellow, appearance hazy, WBC 697, RBC 396, polynuclear WBCs 48%, mononuclear WBC 52%, peritoneal total protein less than 2, peritoneal albumin less than 1, peritoneal LDH 51, peritoneal glucose 117, peritoneal amylase 32. -Peritoneal fluid (09/23) color yellow, peritoneal appearance easy, WBC 1347, RBC 4000, peritoneal polynuclear WBC 80%, mononuclear WBC 20%, total protein less than 2, albumin 1.3, LDH 233, glucose 72, Amylase 37 -Was on Ceftriaxone 2g (09/20-09/24) -Peritoneal fluid culture positive for GPC, pending sensitivity identification Plan: -Scheduled for paracentesis catheter removal in a.m. -N.p.o. after midnight -Continue albumin 25% 4 times daily -Continue levofloxacin (09/24- -peritoneal fluid culture positive for GPC, will follow for sensitivity and identification -Patient is scheduled for removal of catheter on Friday, wants to go home on hospice care. -Consulted infectious disease Dr Cano, following -Will consider removal/exchange of catheter as it is a suspected source of infection -Referred to back to [facility] upon discharge # Euvolemic hypoosmolar hyponatremia -Patient denies any dizziness, is alert oriented x 4. Patient does have history of decompensated liver failure, has distended abdomen ascitic pattern. CTAP shows prominent ascites. -Patient had ascitic fluid drainage earlier today in a.m., patient has weekly paracentesis has Pleurx catheter. -Patient sodium 118 in ED. Patient is on Lasix and spironolactone at home. Plan: -Fluid restriction 1500 cc -Patient started on salt tablets twice daily by nephrology -Diet changed to regular diet instead of low-sodium -Consulted general foreman Dr. Banegas, appreciate recommendations -Hold home diuretics # Decompensated liver cirrhosis # Thrombocytopenia # History of esophageal gastric varices # History of GI bleed # Hypertension # History of normocytic anemia -Patient was recently admitted for GI bleed, had EGD with banding done, patient also had large internal hemorrhoids on colonoscopy had banding done. -Hemoglobin is stable, denies any blood in stool, denies any bloody emesis. -Patient is on midodrine 5 3 times daily at home, platelet count 102, coagulation panel PT 18.9, INR 1.8, APTT 48.4 on admission. -Patient was transfused 1 unit PRBC -09/21 -PT 31.3, INR 3.1, PTT 111.5 on 09/27 Plan: -Hemoglobin stable, will continue to monitor, transfuse for Hgb < 7.0 -Patient's hemoglobin dropped likely in setting of IV fluids. -Patient denies any blood in stool, vomit or urine. -Started on midodrine 10 mg twice daily. -Started on lactulose 10 g twice daily -Vitamin K given due to elevated PT, INR, and PTT levels -1 unit pRBC and 1 unit platelet ordered 09/27 # Metabolic acidosis with compensatory respiratory alkalosis, resolved -Patient's pCO2 13.9, VBG shows pCO2 30 -Patient's metabolic acidosis likely in setting of cirrhosis. -Patient was given bicarb x 50 mEq on admission Plan: -Monitor CMP in a.m. DVT prophylaxis: SCDs GI prophylaxis: Protonix IV daily Diet: Low-sodium diet, fluid restriction 1500 cc, NPO after midnight for procedure 09/28 Lines: Peripheral IV Code status: Full code Dispo: Pending pRBC and platelet transfusion, pleurx cath removal planned 09/28 Patient case discussed with attending physician Dr. Alvin Wilson DO PGY-3 Attending Provider Attestation/Addendum I have discussed and was present for the essential components of the history, physical examination, diagnosis, and treatment plan with the resident. I agree with the patient's care as documented by the resident and amended herein by me. Erickson Esquivel DO. Although this document has been carefully reviewed, there may still be some phonetic and other typographical errors. These errors are purely grammatical due to imperfections in the software program and should not be construed in any way to compromise the substance of the patient's medical care during this visit.
[2024-09-27 19:41] LABS: Hematocrit 22.8 % (41.0-53.0)
--- NOTE | 2024-09-27 19:51 | PC.NURSE ---
Hgb/Hct Post Transfusion: 8.0/22.8, Dr. Neymar Williamson was made aware. No new orders received at this time.
[2024-09-28] VITALS (10 sets, daily range): BP systolic 98–107; BP diastolic 60–70; PULSE 83–96; RESP 16–18; TEMP 36.2–37.1; O2SAT 97–99; BMI 20.6
[2024-09-28 05:57] LABS: Basophils % (Auto) 0 % (0-2.5); Eosinophils % (Auto) 0 % (0-10); Hematocrit 23.3 % (41.0-53.0); Immature Granulocytes % (Auto) 1 % (0-0); Immature Granulocytes Auto 0.13 Thou/mm3 (0.00-0.00); Lymphocytes # (Auto) 1.7 Thou/mm3 (1.0-4.8); Lymphocytes % (Auto) 19 % (10-50); Mean Corpuscular HGB Conc 34.8 g/dl (31.0-37.0); Mean Corpuscular Hemoglobin 31.4 pg (25.0-35.0); Mean Corpuscular Volume 90 fL (80-100); Monocytes # (Auto) 1.6 Thou/mm3 (0.0-0.8); Monocytes % (Auto) 17 % (0-12); Neutrophils # (Auto) 5.5 Thou/mm3 (1.8-7.7); Neutrophils % (Auto) 61 % (37-80); Nucleated Red Blood Cell % 0 /100 WBC (0); RDW Standard Deviation 59.4 fL (35.1-43.9); Red Blood Count 2.58 Miln/mm3 (4.50-5.90)
[2024-09-28 06:02] LABS: Hemoglobin 8.1 g/dL (13.5-16.0); Platelet Count 77 Thou/mm3 (140-440)
--- NOTE | 2024-09-28 06:13 | PC.NURSE ---
Pt on NPO for possible removal of pleurX catheter today. MD Neymar Williamson okayed to give [place] PO for pain.
[2024-09-28 06:17] LABS: Slide Review Platelets confirmed
[2024-09-28 06:18] LABS: INR 2.6 (0.9-1.3); Partial Thromboplastin Time 82.3 Seconds (22.0-36.0)
[2024-09-28] MEDS: HYDROcodone/APAP 5/325 TABLET 1 TAB PO ×3 (06:19→21:24)
[2024-09-28 06:22] LABS: Anion Gap 12 (7-16); BUN/Creatinine Ratio 19 Ratio (12-20); Blood Urea Nitrogen 36 mg/dL (9-23); Carbon Dioxide 21.4 mMol/L (20.0-31.0); Chloride 96 mMol/L (98-107); Creatinine (Component) 1.9 mg/dL (0.6-1.3); Glucose 90 mg/dL (74-106); Potassium 3.8 mMol/L (3.4-5.1); Sodium 129 mMol/L (136-145); eGFR 42 See Note
[2024-09-28 06:23] LABS: Calcium 9.6 mg/dL (8.3-10.6); Osmolality,Calculated 267 (275-295)
[2024-09-28] MEDS: LACTULOSE SYRUP 20 GM/30 ML UDC 10 GM PO ×2 (08:31→21:23)
[2024-09-28] MEDS: SODIUM CHLORIDE 1 GM TABLET PO ×2 (08:31→21:24)
[2024-09-28] MEDS: MIDODRINE 5 MG TABLET 10 MG PO ×2 (08:31→21:24)
[2024-09-28] MEDS: PANTOPRAZOLE 40 MG TABLET PO (08:31)
[2024-09-28] MEDS: CITRIC ACID/SODIUM CITR 15 ML UDC (BICITRA) 30 ML PO ×2 (08:32→21:23)
[2024-09-28] MEDS: Artificial Tears 225 DROP/15 ML BTL BOTH EYES (08:53)
--- NOTE | 2024-09-28 10:50 | PC.NURSE ---
notified misael garcia of cancellation of procedure per md gunn order due to low plts.
[2024-09-28] MEDS: ALBUMIN HUMAN 25% IVPB 25 GM/100 ML BTL IV (12:25)
--- NOTE | 2024-09-28 12:30 | ESPR_ITS ---
<Statement entered by Deion Gann MD - 10/03/24 16:32> I reviewed above note and agree with findings and plans. I have also personally examined the patient with medicine team and went over assessment and plan with medical team including seo intern and resident physician. <Statement entered by Erik Wilson DO - 09/28/24 20:06> Senior attestation: Patient was examined and case was reviewed with team including attending physician. Note reviewed, I agree with most of its contents and agree with the patient's care. Kidney function noted to worsen today with creatinine increase from 1.6 to 1.9, will follow up with nephrology team. Additional platelets to be transfused tomorrow morning, with goal of platelets > 100k for IR to remove pleurx catheter. Erik Wilson DO PGY-3 Documentation for date of: 09/28/24 Subjective Subjective Interval history: No acute overnight events. Patient seen and examined with sister at bedside. Labs reviewed. Patient has been tolerating his diet well. He endorses 1 bowel movement this morning. Patient's renal function appears to be worsening creatinine increased from1.6 to 1.9, possible component of hepatorenal syndrome. Started on octreotide, continue on albumin and midodrine. Peritoneal fluid is exudative. Pending removal of Pleurx cath upon being transfused platelets. IR recommends greater than 100k platelets in order for Pleurx cath removal. Patient will be discharged with [facility]. Exam Vital Signs Temp Pulse Resp BP Pulse Ox O2 Del Method O2 Flow Rate 97.9 F 91 17 98/60 97 Room Air 0 09/28/24 08:00 09/28/24 08:31 09/28/24 08:00 09/28/24 08:31 09/28/24 08:00 09/28/24 08:00 09/28/24 04:00 Narrative Exam General: Conversational, well-developed male, in no acute distress HEENT: Atraumatic/normocephalic, JUSTINO, on room air. Heart: RRR, S1 and S2 without clicks or murmurs. Lungs: Clear on auscultation bilaterally, no wheezing or crackles. Abdomen: Distended, tenderness in all 4 quadrants. Pleurx catheter in place with dressing Skin: Intact, no cyanosis or edema noted. Range of motion intact bilateral upper and lower extremities Neuro: Generally alert and oriented to person, place, time. Cranial nerves II to XII grossly intact Objective Labs 09/28/24 05:09 09/28/24 05:09 Labs: Laboratory Results - last 24 hr 09/27/24 09/27/24 09/28/24 07:22 19:27 05:09 WBC 9.0 RBC 2.58 L Hgb 8.0 L 8.1 L Hct 22.8 L 23.3 L MCV 90 MCH 31.4 MCHC 34.8 RDW Std Deviation 59.4 H Plt Count 77 L D Neut % (Auto) 61 Lymph % (Auto) 19 [place] % (Auto) 17 H Eos % (Auto) 0 Baso % (Auto) 0 Neut # (Auto) 5.5 Lymph # (Auto) 1.7 [place] # (Auto) 1.6 H Eos # (Auto) 0.0 Baso # (Auto) 0.0 Immature Gran # (Auto) 0.13 H Absolute Nucleated RBC 0.00 Immature Gran % 1 H Nucleated RBC % 0 PT 27.0 H D INR 2.6 H APTT 82.3 H D Sodium 129 L Potassium 3.8 Chloride 96 L Carbon Dioxide 21.4 Anion Gap 12 BUN 36 H Creatinine 1.9 H Estim Creat Clear Calc 37.0 L eGFR 42 L BUN/Creatinine Ratio 19 Glucose 90 Calculated Osmolality 267 L Calcium 9.6 Misc Test Result Platelets confirmed Blood Type O Positive Antibody Screen NEGATIVE Crossmatch See Detail Blood Bank Wristband ID Yes Blood Bank Comment PLATP Ready ABG Interpretation ABG results: 09/20/24 14:21 VBG pH 7.34 VBG pCO2 30 L VBG pO2 35 VBG Base Excess -9 L Quality Measures Quality Measures VTE prophylaxis (SCDs) Assessment & Plan Assessment Current Active Medications: Generic Name Dose Route Start Last Admin Trade Name Freq PRN Reason Stop Dose Admin Acetaminophen 650 mg 09/20/24 23:40 Acetaminophen 325 Mg Tablet PO 10/20/24 15:21 Q6H PRN Pain (1-3) and Fever >101.5 Hydrocodone Bitart/Acetaminophen 1 tab 09/24/24 13:43 09/28/24 06:19 Hydrocodone/Apap 5/325 Tablet PO 09/29/24 13:42 1 tab Q6HR PRN Administration PAIN SCALE 7-10 (Severe Artificial Tears 0 drop 09/24/24 17:39 09/28/24 08:53 Artificial Tears 225 Drop/15 Ml Btl BOTH EYES 10/24/24 17:38 1 drop PRN PRN Administration TO KEEP EYES MOIST Citric Acid/Sodium Citrate 30 ml 09/21/24 09:00 09/28/24 08:32 Citric Acid/Sodium Citr 15 Ml Udc (Bicitra) PO 10/21/24 08:59 30 ml BID JOSELIN Administration Albumin Human 25 gm in 100 mls @ 100 mls/hr 09/28/24 11:41 09/28/24 12:25 Albuminar-25 Ivpb IV 10/01/24 11:40 100 mls/hr QDAY JOSELIN Administration Lactulose 10 gm 09/20/24 21:00 09/28/24 08:31 Lactulose Syrup 20 Gm/30 Ml Udc PO 10/20/24 20:59 10 gm BID JOSELIN Administration Protocol Midodrine 10 mg 09/25/24 21:00 09/28/24 08:31 Midodrine 5 Mg Tablet PO 10/25/24 20:59 10 mg BID JOSELIN Administration Octreotide Acetate 100 mcg 09/28/24 14:00 Octreotide Acet Inj 100 Mcg/Ml Vial SC 10/28/24 12:14 TID JOSELIN Protocol Ondansetron HCl 4 mg 09/20/24 15:22 Ondansetron Inj 2 Mg/Ml Inj 2 Ml IV 10/20/24 15:21 Q6H PRN NAUSEA OR VOMITING Protocol Pantoprazole Sodium 40 mg 09/21/24 09:15 09/28/24 08:31 Pantoprazole 40 Mg Tablet PO 10/20/24 15:29 40 mg QDAY OJSELIN Administration Sodium Chloride 1 gm 09/25/24 09:00 09/28/24 08:31 Sodium Chloride 1 Gm Tablet PO 10/25/24 08:59 1 gm BID JOSELIN Administration Plan 54-year-old male with history of end-stage liver disease secondary to alcohol use, decompensated liver cirrhosis, thrombocytopenia, esophageal varices and personal history of lung cancer who presented to [facility] with a chief complaint of hyponatremia. #Spontaneous bacterial peritonitis #Ascites, likely 2/2 #Portal hypertension #Leukocytosis Patient presented in the hospital with hospice prior to admission. Tenderness and discomfort around paracentesis catheter, at high risk of infection due to the catheter. Patient has hx of weekly paracenthesis for fluid removal from ascites, raising suspicion of SBP. Minimal tenderness in abdominal cavity on exam, but afebrile. Peritoneal fluid (09/21) color yellow, appearance hazy, WBC 697, RBC 396, polynuclear WBCs 48%, mononuclear WBC 52%, peritoneal total protein less than 2, peritoneal albumin less than 1, peritoneal LDH 51, peritoneal glucose 117, peritoneal amylase 32. Peritoneal fluid (09/23) color yellow, peritoneal appearance easy, WBC 1347, RBC 4000, peritoneal polynuclear WBC 80%, mononuclear WBC 20%, total protein less than 2, albumin 1.3, LDH 233, glucose 72, Amylase 37 Ceftriaxone 2g (09/20-09/24). Peritoneal fluid culture positive for GPC, pending sensitivity identification. SAA.6 g/dL indicative of ascites from portal hypertension. Anticipate removal of catheter as it is a suspected source of infection. Plan: -Scheduled for paracentesis catheter removal in a.m. -Consulted infectious disease Dr Cano, following; appreciate reccs -Diet renal at the moment -N.p.o. after midnight -Continue albumin 25% 4 times daily -Continue levofloxacin (09/24- -peritoneal fluid culture positive for GPC, pending sensitivities -Will D/c home on hospice care, back to [facility] # Decompensated liver disease #Cirrhosis # Thrombocytopenia # Euvolemic hypoosmolar hyponatremia # History of esophageal gastric varices # History of GI bleed # Hypertension # History of normocytic anemia Patient has history of decompensated liver failure, has distended abdomen ascitic pattern. He has a 40+ year drinking history. CTAP showed prominent ascites. Patient had ascitic fluid drainage during this hospitalization, and chronic weekly paracentesis with Pleurx catheter. Patient sodium 118 in ED improved to 128 currently on salt tablets. Patient is on Lasix and spironolactone at home. Recent admission for GI bleed, status post EGD with banding. Patient also had large internal hemorrhoids on colonoscopy had banding done. Hemoglobin is stable at 8.1-- denies any blood in stool, denies any bloody emesis. Patient is on midodrine 5--3 times daily at home, platelet count 77 now. PT 27, INR 2.6APTT 48.4. PTT 82.3. Patient was transfused PRBc on this admission. Plan: -Consulted physical therapy asst Dr. Banegas; recommends fluid restriction 1500 cc, salt tablets twice daily, and diet regular -Fluid restriction 1500 cc -Patient started on salt tablets twice daily by nephrology -Diet changed to regular -Hold home diuretics - will continue to monitor, transfuse for Hgb < 7.0 -Continue midodrine 10 mg twice daily. -Lactulose 10 g twice daily -Vitamin K given due to elevated PT, INR, and PTT levels -1 unit platelet ordered 09/27 #DOMINGUEZ #Possible hepatorenal syndrome Patient has DOMINGUEZ likely secondary to hepatorenal syndrome Considering patient's extensive history of decompensated liver disease, patient may have a component of renal as contributing to his current DOMINGUEZ. Cannot rule out prerenal secondary to dehydration as patient has not had fluids or food today preparation for Pleurx cath removal. Creatinine increased from 1.6 to 1.9. Baseline creatinine 1.0 on 09/22/24. Plan: -Nephrology consulted; appreciate reccs -Avoid nephrotoxic agents -Renally dose medications # Metabolic acidosis with compensatory respiratory alkalosis, resolved DVT prophylaxis: SCDs GI prophylaxis: Protonix IV daily Diet: Regular diet, fluid restriction 1500 cc, NPO after midnight for procedure 09/29 Lines: Peripheral IV Code status: Full code Dispo: Pending platelet transfusion, pleurx cath removal planned 09/29 in a.m. Discussed case with my attending Dr. Gann and senior Steve, PGY-3. Thank you, Patito Burgess, PGY-2
[2024-09-28] MEDS: OCTREOTIDE ACET SC ×2 (15:15→21:24)
[2024-09-29] VITALS (20 sets, daily range): BP systolic 94–131; BP diastolic 57–70; PULSE 75–92; RESP 12–20; TEMP 36.4–36.8; O2SAT 95–100
--- NOTE | 2024-09-29 | XR_ITS ---
Examination: IR removal Pleurx catheter in the abdomen Exam date and time: September 29, 2020 4:12 PM INDICATIONS: Infected Pleurx catheter TECHNIQUE AND FINDINGS: 5600 cc fluid removed through the peritoneal catheter before removal The catheter came out with removal of the bandaging material IMPRESSION: 5600 cc fluid removed through the Pleurx catheter
[2024-09-29] MEDS: OCTREOTIDE ACET SC ×3 (05:22→22:23)
[2024-09-29 05:57] LABS: Basophils % (Auto) 1 % (0-2.5); Eosinophils # (Auto) 0.1 Thou/mm3 (0.0-0.5); Eosinophils % (Auto) 1 % (0-10); Hematocrit 24.2 % (41.0-53.0); Immature Granulocytes % (Auto) 1 % (0-0); Immature Granulocytes Auto 0.07 Thou/mm3 (0.00-0.00); Lymphocytes # (Auto) 1.7 Thou/mm3 (1.0-4.8); Lymphocytes % (Auto) 19 % (10-50); Mean Corpuscular Volume 89 fL (80-100); Monocytes # (Auto) 1.3 Thou/mm3 (0.0-0.8); Monocytes % (Auto) 15 % (0-12); Neutrophils # (Auto) 5.6 Thou/mm3 (1.8-7.7); Neutrophils % (Auto) 64 % (37-80); Nucleated Red Blood Cell % 0 /100 WBC (0); RDW Standard Deviation 57.6 fL (35.1-43.9); Red Blood Count 2.72 Miln/mm3 (4.50-5.90); White Blood Count 8.7 Thou/mm3 (3.8-10.6)
[2024-09-29 05:59] LABS: Hemoglobin 8.7 g/dL (13.5-16.0); Platelet Count 78 Thou/mm3 (140-440)
[2024-09-29 06:29] LABS: INR 2.6 (0.9-1.3); Partial Thromboplastin Time 85.9 Seconds (22.0-36.0); Prothrombin Time 26.9 Seconds (9.0-12.2)
[2024-09-29 06:32] LABS: Anion Gap 12 (7-16); BUN/Creatinine Ratio 16 Ratio (12-20); Blood Urea Nitrogen 42 mg/dL (9-23); Calcium 9.4 mg/dL (8.3-10.6); Carbon Dioxide 21.2 mMol/L (20.0-31.0); Chloride 95 mMol/L (98-107); Creatinine (Component) 2.7 mg/dL (0.6-1.3); Estimated Creatinine Clearance 26.1 mL/min (>60); Glucose 110 mg/dL (74-106); Osmolality,Calculated 268 (275-295); Potassium 3.5 mMol/L (3.4-5.1); Sodium 128 mMol/L (136-145); eGFR 27 See Note
[2024-09-29] MEDS: HYDROcodone/APAP 5/325 TABLET 1 TAB PO ×2 (07:42→18:07)
--- NOTE | 2024-09-29 08:57 | PC.NURSE ---
consulted dr gunn regarding current platelets, ok to proceed with pleur x catheter removal, spoke to Dr. Burgess, new order will be placed
[2024-09-29 09:40] LABS: Platelet Count 117 Thou/mm3 (140-440)
[2024-09-29 10:55] LABS: Slide Review Platelets confirmed
[2024-09-29] MEDS: ALBUMIN HUMAN 25% IVPB 25 GM/100 ML BTL IV ×3 (11:49→20:40)
--- NOTE | 2024-09-29 12:53 | ESPR_ITS ---
Subjective Subjective Interval history: not overtly worse off abx. very late peritoneal cx with enterococcus. Exam Vital Signs Temp Pulse Resp BP Pulse Ox O2 Del Method O2 Flow Rate 97.7 F 89 16 102/59 L 96 Room Air 0 09/29/24 12:00 09/29/24 12:00 09/29/24 12:00 09/29/24 12:00 09/29/24 12:00 09/29/24 12:00 09/28/24 04:00 Narrative Exam limited visit. Objective - Internal Medicine Labs 09/29/24 09:16 09/29/24 04:55 Labs: Laboratory Results - last 24 hr 09/27/24 09/29/24 09/29/24 07:22 04:55 09:16 WBC 8.7 RBC 2.72 L Hgb 8.7 L Hct 24.2 L MCV 89 MCH 32.0 MCHC 36.0 RDW Std Deviation 57.6 H Plt Count 78 L 117 L D Neut % (Auto) 64 Lymph % (Auto) 19 [place] % (Auto) 15 H Eos % (Auto) 1 Baso % (Auto) 1 Neut # (Auto) 5.6 Lymph # (Auto) 1.7 [place] # (Auto) 1.3 H Eos # (Auto) 0.1 Baso # (Auto) 0.0 Immature Gran # (Auto) 0.07 H Absolute Nucleated RBC 0.00 Immature Gran % 1 H Nucleated RBC % 0 PT 26.9 H INR 2.6 H APTT 85.9 H Sodium 128 L Potassium 3.5 Chloride 95 L Carbon Dioxide 21.2 Anion Gap 12 BUN 42 H Creatinine 2.7 H D Estim Creat Clear Calc 26.1 L eGFR 27 L BUN/Creatinine Ratio 16 Glucose 110 H Calculated Osmolality 268 L Calcium 9.4 Misc Test Result Platelets confirmed Blood Type O Positive Antibody Screen NEGATIVE Crossmatch See Detail Blood Bank Wristband ID Yes Blood Bank Comment PLATP Ready ABG Interpretation ABG results: 09/20/24 14:21 VBG pH 7.34 VBG pCO2 30 L VBG pO2 35 VBG Base Excess -9 L Assessment & Plan A&P Narrative possible device related peritoneal inflammation with benign exam, but abnormal cell counts from peritoneal fluid possible sbp. finished rx friday hx suggestive of hepatic encephalopathy cirrhosis. likely etoh related avoid etoh finished abx for presumptive sbp. cx usually neg if held this long, they need to go into bc bottles right away or will be negativeor show contaminants. some favor fpc quinolone rx for prevention of sbp, but that is based on a single center study with a high rate of sbp that came down with regular quinolone use. as such, it is a personal choice. gpc/enterococcus noted. of uncertain significance as reported very late. so may be contaminated as his exam previously was benign will see again prn would treat the enterococcus as a contaminant, but if he is worse clinically, then ampicillin or oral amox ok for 5 days. note that germ was S to quinolones. and he had 5d of levaquin before the enterococcus was identified Time Spent With Patient Time: Total time spent is greater than 50% in coordination of care (as documented) at patient's floor/unit and/or counseling patient:
--- NOTE | 2024-09-29 14:45 | PC.NURSE ---
1327 patient in IR for pleur x drainage catheter removal 1329 consent signed by patient, patient placed in IR bed, connected to vital signs monitor and oxygen. Dr. Bowen wants pleural fluid to be drained before pleur x removal 1359 Total of 5,300ml pleural fluid drained assisted by radio interference supervisor. While removing pleur x catheter dressing, pleur x catheter was already out and removed. New dressing applied, ok to transfer patient back to room per MD. Report given to Artem RN, patient placed in [facility] and transferred back to room 378. No need for local anesthesia or IV pain medication since catheter was already out.
[2024-09-29] MEDS: CITRIC ACID/SODIUM CITR 15 ML UDC (BICITRA) 30 ML PO ×2 (15:09→20:40)
[2024-09-29] MEDS: MIDODRINE 5 MG TABLET 10 MG PO ×2 (15:10→20:40)
[2024-09-29] MEDS: PANTOPRAZOLE 40 MG TABLET PO (15:10)
[2024-09-29] MEDS: LACTULOSE SYRUP 20 GM/30 ML UDC 10 GM PO ×2 (15:10→20:40)
[2024-09-29] MEDS: SODIUM CHLORIDE 1 GM TABLET PO ×2 (15:10→20:40)
--- NOTE | 2024-09-29 16:54 | ESPR_ITS ---
<Statement entered by Deion Gann MD - 10/03/24 16:33> I reviewed above note and agree with findings and plans. I have also personally examined the patient with medicine team and went over assessment and plan with medical team including equine internship and resident physician. <Statement entered by Erik Wilson DO - 09/29/24 20:07> Senior attestation: Patient was examined and case was reviewed with team including attending physician. Note reviewed, I agree with most of its contents and agree with the patient's care. Pleurx cath removed today, ~ 5.6L fluid also removed. Creatinine levels noted to worsen to 2.7 today, will follow up with nephrology regarding recommendations for possible hepatorenal syndrome. Will continue IV octreotide, albumin, and midodrine with levaquin for bacterial peritonitis treatment. Erik Wilson DO PGY-3 Documentation for date of: 09/29/24 Subjective Subjective Interval history: No acute overnight events. Labs reviewed. Patient seen at bedside ready for Pleurx cath removal. Patient denies headache, fever, chills, chest pain, palpitation, shortness of breath, dizziness, nausea, vomiting, diarrhea, or constipation. Abdomen distended with ascites on exam. Upper and lower extremities without edema. Patient's creatinine appears to be worsening 1.9-2.4. GFR decreased from initial admission 42 to27. Medicine team anticipates the patient will likely require dialysis in the near future if patient's kidney function continues to worsen. Pending goals of care discussion with family to understand patient and family segmentations. Exam Vital Signs Temp Pulse Resp BP Pulse Ox O2 Del Method O2 Flow Rate 97.7 F 76 18 98/65 99 Room Air 3 09/29/24 16:00 09/29/24 16:00 09/29/24 16:00 09/29/24 16:00 09/29/24 16:00 09/29/24 16:09/29/24 13:50 Narrative Exam General: Conversational, well-developed male, in no acute distress HEENT: Atraumatic/normocephalic, JUSTINO, on room air. Heart: RRR, S1 and S2 without clicks or murmurs. Lungs: Clear on auscultation bilaterally, no wheezing or crackles. Abdomen: Distended, tenderness in all 4 quadrants. Pleurx catheter in place with dressing, fluid wave noted abdomen palpation. Skin: Intact, no cyanosis or edema noted. Range of motion intact bilateral upper and lower extremities Neuro: Generally alert and oriented to person, place, time. Cranial nerves II to XII grossly intact Objective Labs 09/29/24 09:16 09/29/24 04:55 Labs: Laboratory Results - last 24 hr 09/27/24 09/29/24 09/29/24 07:22 04:55 09:16 WBC 8.7 RBC 2.72 L Hgb 8.7 L Hct 24.2 L MCV 89 MCH 32.0 MCHC 36.0 RDW Std Deviation 57.6 H Plt Count 78 L 117 L D Neut % (Auto) 64 Lymph % (Auto) 19 [place] % (Auto) 15 H Eos % (Auto) 1 Baso % (Auto) 1 Neut # (Auto) 5.6 Lymph # (Auto) 1.7 [place] # (Auto) 1.3 H Eos # (Auto) 0.1 Baso # (Auto) 0.0 Immature Gran # (Auto) 0.07 H Absolute Nucleated RBC 0.00 Immature Gran % 1 H Nucleated RBC % 0 PT 26.9 H INR 2.6 H APTT 85.9 H Sodium 128 L Potassium 3.5 Chloride 95 L Carbon Dioxide 21.2 Anion Gap 12 BUN 42 H Creatinine 2.7 H D Estim Creat Clear Calc 26.1 L eGFR 27 L BUN/Creatinine Ratio 16 Glucose 110 H Calculated Osmolality 268 L Calcium 9.4 Misc Test Result Platelets confirmed Blood Type O Positive Antibody Screen NEGATIVE Crossmatch See Detail Blood Bank Wristband ID Yes Blood Bank Comment PLATP Ready ABG Interpretation ABG results: 09/20/24 14:21 VBG pH 7.34 VBG pCO2 30 L VBG pO2 35 VBG Base Excess -9 L Quality Measures Quality Measures VTE prophylaxis (SCDs) Assessment & Plan Assessment Current Active Medications: Generic Name Dose Route Start Last Admin Trade Name Freq PRN Reason Stop Dose Admin Acetaminophen 650 mg 09/20/24 23:40 Acetaminophen 325 Mg Tablet PO 10/20/24 15:21 Q6H PRN Pain (1-3) and Fever >101.5 Hydrocodone Bitart/Acetaminophen 1 tab 09/29/24 16:53 Hydrocodone/Apap 5/325 Tablet PO 10/04/24 16:52 Q6HR PRN PAIN Artificial Tears 0 drop 11/22/24 17:39 09/28/24 08:53 Artificial Tears 225 Drop/15 Ml Btl BOTH EYES 10/24/24 17:38 1 drop PRN PRN Administration TO KEEP EYES MOIST Citric Acid/Sodium Citrate 30 ml 09/21/24 09:00 09/29/24 15:09 Citric Acid/Sodium Citr 15 Ml Udc (Bicitra) PO 10/21/24 08:59 30 ml BID JOSELIN Administration Albumin Human 25 gm in 100 mls @ 100 mls/hr 09/28/24 11:41 09/29/24 11:49 Albuminar-25 Ivpb IV 10/01/24 11:40 100 mls/hr QDAY JOSELIN Administration Lactulose 10 gm 09/20/24 21:00 09/29/24 15:10 Lactulose Syrup 20 Gm/30 Ml Udc PO 10/20/24 20:59 10 gm BID JOSELIN Administration Protocol Midodrine 10 mg 09/25/24 21:00 09/29/24 15:10 Midodrine 5 Mg Tablet PO 10/25/24 20:59 10 mg BID JOSELIN Administration Octreotide Acetate 100 mcg 09/28/24 14:00 09/29/24 16:32 Octreotide Acet Inj 100 Mcg/Ml Vial SC 10/28/24 12:14 100 mcg TID JOSELIN Administration Protocol Ondansetron HCl 4 mg 09/20/24 15:22 Ondansetron Inj 2 Mg/Ml Inj 2 Ml IV 10/20/24 15:21 Q6H PRN NAUSEA OR VOMITING Protocol Pantoprazole Sodium 40 mg 09/21/24 09:15 09/29/24 15:10 Pantoprazole 40 Mg Tablet PO 10/20/24 15:29 40 mg QDAY JOSELIN Administration Sodium Chloride 1 gm 09/25/24 09:00 09/29/24 15:10 Sodium Chloride 1 Gm Tablet PO 10/25/24 08:59 1 gm BID JOSELIN Administration Plan 54-year-old male with history of 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 #Catheter-associated Enterococcus faecalus #Ascites Patient presented in the hospital with hospice prior to admission. Tenderness and discomfort around paracentesis catheter, at high risk of infection due to the catheter. Patient has hx of weekly paracenthesis for fluid removal from ascites, raising suspicion of SBP. On exam, tenderness in abdominal cavity on exam, but afebrile. Peritoneal fluid (09/21) color yellow, appearance hazy, WBC 697, RBC 396, polynuclear WBCs 48%, mononuclear WBC 52%, peritoneal total protein less than 2, peritoneal albumin less than 1, peritoneal LDH 51, peritoneal glucose 117, peritoneal amylase 32. Peritoneal fluid (09/23) color yellow, peritoneal appearance easy, WBC 1347, RBC 4000, peritoneal polynuclear WBC 80%, mononuclear WBC 20%, total protein less than 2, albumin 1.3, LDH 233, glucose 72, Amylase 37 Ceftriaxone 2g (09/20-09/24). Peritoneal fluid culture positive for GPC,Enterococcus faecalus Levofloxacin (09/24-) given. Anticipate removal of catheter as it is a suspected source of infection. Patient had Pleurx cath drainage followed by Pleurx catheter removal. 5.3 L fluid were removed. Plan: -Consulted infectious disease Dr Cano, following; appreciate reccs -Albumin 25%, 25gm increased to 100 gm daily -Will D/c home on hospice care, back to [facility] # Decompensated liver disease #Cirrhosis # Thrombocytopenia # Euvolemic hypoosmolar hyponatremia # History of esophageal gastric varices # History of GI bleed # Hypertension # History of normocytic anemia #Status post Pleurx cath drainage on 09/29/2024 Patient has history of decompensated liver failure, has distended abdomen ascitic pattern. He has a 40+ year drinking history. CTAP showed prominent ascites. Patient had ascitic fluid drainage during this hospitalization, and chronic weekly paracentesis with Pleurx catheter. Patient sodium 118 in ED improved to 128 currently on salt tablets. Patient is on Lasix and spironolactone at home. Recent admission for GI bleed, status post EGD with banding. Patient also had large internal hemorrhoids on colonoscopy had banding done. Hemoglobin is stable at 8.1-- denies any blood in stool, denies any bloody emesis. Patient was transfused PRBc on this admission. Patient is on midodrine 5--3 times daily at home, platelet count 77 up trended to 117 upon platelet transfusion. PT 27, INR 2.6APTT 48.4. PTT 82.3. Vitamin K received by patient. Plan: -Consulted supply chain buyer Dr. Banegas; recommends fluid restriction 1500 cc, salt tablets twice daily, and diet regular -Fluid restriction 1500 cc -salt tablets twice daily by nephrology -Ecru 5/325 every 6 hours as needed for pain. -Diet low-sodium -Hold home diuretics - will continue to monitor, transfuse for Hgb < 7.0 -Continue midodrine 10 mg twice daily. -Lactulose 10 g twice daily #DOMINGUEZ #Possible hepatorenal syndrome Patient has DOMINGUEZ likely secondary to hepatorenal syndrome Considering patient's extensive history of decompensated liver disease, patient may have a component of renal as contributing to his current DOMINGUEZ. Cannot rule out prerenal secondary to dehydration as patient has not had fluids or food today preparation for Pleurx cath removal. Creatinine 1.9 worsened to 2.4. Baseline creatinine 1.0 on 09/22/24. GFR from 42 decreased to 27. If renal function continues to worsen, anticipate the patient may likely require dialysis in the near future. Plan: -Nephrology consulted; appreciate reccs -Consider goals of care discussion with family to understand patient and family's expectations. -Avoid nephrotoxic agents -Renally dose medications # Metabolic acidosis with compensatory respiratory alkalosis, resolved #Leukocytosis, resolved DVT prophylaxis: SCDs GI prophylaxis: Protonix IV daily Diet: Low-sodium Lines: Peripheral IV Code status: Full code Dispo: Upon removal of Pleurx cath, patient will be discharged hospice with SNF after goals of care discussion. Discussed case with my attending Dr. Gann and senior Steve, PGY-3. Thank you, Patito Burgess, PGY-2
[2024-09-30] VITALS (11 sets, daily range): BP systolic 94–103; BP diastolic 57–66; PULSE 69–88; RESP 13–18; TEMP 36.2–36.8; O2SAT 91–98
[2024-09-30] MEDS: HYDROcodone/APAP 5/325 TABLET 1 TAB PO ×4 (00:44→23:23)
[2024-09-30] MEDS: OCTREOTIDE ACET SC ×3 (05:19→22:13)
[2024-09-30] MEDS: ALBUMIN HUMAN 25% IVPB 25 GM/100 ML BTL IV ×2 (05:19→11:25)
[2024-09-30 06:36] LABS: Basophils # (Auto) 0.1 Thou/mm3 (0.0-0.2); Basophils % (Auto) 1 % (0-2.5); Eosinophils # (Auto) 0.1 Thou/mm3 (0.0-0.5); Eosinophils % (Auto) 1 % (0-10); Hematocrit 24.2 % (41.0-53.0); Immature Granulocytes % (Auto) 1 % (0-0); Immature Granulocytes Auto 0.07 Thou/mm3 (0.00-0.00); Lymphocytes # (Auto) 1.7 Thou/mm3 (1.0-4.8); Lymphocytes % (Auto) 19 % (10-50); Mean Corpuscular HGB Conc 36.4 g/dl (31.0-37.0); Mean Corpuscular Hemoglobin 32.2 pg (25.0-35.0); Mean Corpuscular Volume 89 fL (80-100); Monocytes # (Auto) 1.5 Thou/mm3 (0.0-0.8); Monocytes % (Auto) 17 % (0-12); Neutrophils # (Auto) 5.4 Thou/mm3 (1.8-7.7); Neutrophils % (Auto) 62 % (37-80); Nucleated Red Blood Cell % 0 /100 WBC (0); Platelet Count 98 Thou/mm3 (140-440); RDW Standard Deviation 56.4 fL (35.1-43.9); Red Blood Count 2.73 Miln/mm3 (4.50-5.90); White Blood Count 8.7 Thou/mm3 (3.8-10.6)
[2024-09-30 06:39] LABS: Hemoglobin 8.8 g/dL (13.5-16.0)
[2024-09-30 06:48] LABS: Anion Gap 11 (7-16); BUN/Creatinine Ratio 17 Ratio (12-20); Blood Urea Nitrogen 45 mg/dL (9-23); Calcium 9.4 mg/dL (8.3-10.6); Carbon Dioxide 23.8 mMol/L (20.0-31.0); Chloride 94 mMol/L (98-107); Creatinine (Component) 2.6 mg/dL (0.6-1.3); Estimated Creatinine Clearance 27.1 mL/min (>60); Glucose 116 mg/dL (74-106); Osmolality,Calculated 271 (275-295); Potassium 3.2 mMol/L (3.4-5.1); Sodium 129 mMol/L (136-145); eGFR 29 See Note
[2024-09-30] MEDS: CITRIC ACID/SODIUM CITR 15 ML UDC (BICITRA) 30 ML PO ×2 (09:49→22:10)
[2024-09-30] MEDS: LACTULOSE SYRUP 20 GM/30 ML UDC 10 GM PO ×2 (09:50→22:10)
[2024-09-30] MEDS: MIDODRINE 5 MG TABLET 10 MG PO ×3 (09:50→22:10)
[2024-09-30] MEDS: SODIUM CHLORIDE 1 GM TABLET PO ×2 (09:50→22:10)
[2024-09-30] MEDS: POTASSIUM CHLORIDE 10% 20 MEQ/15 ML UDC 40 MEQ PO (09:50)
[2024-09-30] MEDS: PANTOPRAZOLE 40 MG TABLET PO (09:50)
--- NOTE | 2024-09-30 11:14 | ESPR_ITS ---
<Statement entered by Deion Gann MD - 10/03/24 16:34> I reviewed above note and agree with findings and plans. I have also personally examined the patient with medicine team and went over assessment and plan with medical team including information technology intern and resident physician. <Statement entered by Erik Wilson DO - 09/30/24 16:25> Senior attestation: Patient was examined and case was reviewed with team including attending physician. Note reviewed, I agree with most of its contents and agree with the patient's care. Will increase midodrine dosage to 10mg TID. Have updated patient with prognosis and plan, patient is agreeable to staying for further treatment of his kidney function but would like to go home soon. Erik Wilson DO PGY-3 Documentation for date of: 09/30/24 Subjective Subjective Interval history: Patient seen at bedside No acute overnight events. Patient is status post Pleurx catheter removal Patient's renal function has deteriorated compared to baseline Case discussed extensively with patient and patient's sister after his approval. Will continue to monitor patient. Increased midodrine to 10 mg 3 times daily. Will continue to monitor patient Exam Vital Signs Temp Pulse Resp BP Pulse Ox O2 Del Method O2 Flow Rate 97.9 F 79 15 98/58 L 96 Room Air 3 09/30/24 08:00 09/30/24 09:50 09/30/24 08:00 09/30/24 09:50 09/30/24 08:00 09/30/24 08:00 09/30/24 00:00 Narrative Exam General: Conversational, well-developed male, in no acute distress HEENT: Atraumatic/normocephalic, JUSTINO, on room air. Heart: RRR, S1 and S2 without clicks or murmurs. Lungs: Clear on auscultation bilaterally, no wheezing or crackles. Abdomen: Distended, tenderness in all 4 quadrants. Pleurx catheter in place with dressing, fluid wave noted abdomen palpation. Skin: Intact, no cyanosis or edema noted. Range of motion intact bilateral upper and lower extremities Neuro: Generally alert and oriented to person, place, time. Cranial nerves II to XII grossly intact Objective Labs 09/30/24 05:25 09/30/24 05:25 Labs: Laboratory Results - last 24 hr 09/30/24 05:25 WBC 8.7 RBC 2.73 L Hgb 8.8 L Hct 24.2 L MCV 89 MCH 32.2 MCHC 36.4 RDW Std Deviation 56.4 H Plt Count 98 L Neut % (Auto) 62 Lymph % (Auto) 19 Meeker % (Auto) 17 H Eos % (Auto) 1 Baso % (Auto) 1 Neut # (Auto) 5.4 Lymph # (Auto) 1.7 Meeker # (Auto) 1.5 H Eos # (Auto) 0.1 Baso # (Auto) 0.1 Immature Gran # (Auto) 0.07 H Absolute Nucleated RBC 0.00 Immature Gran % 1 H Nucleated RBC % 0 Sodium 129 L Potassium 3.2 L Chloride 94 L Carbon Dioxide 23.8 Anion Gap 11 BUN 45 H Creatinine 2.6 H Estim Creat Clear Calc 27.1 L eGFR 29 L BUN/Creatinine Ratio 17 Glucose 116 H Calculated Osmolality 271 L Calcium 9.4 ABG Interpretation ABG results: 09/20/24 14:21 VBG pH 7.34 VBG pCO2 30 L VBG pO2 35 VBG Base Excess -9 L Quality Measures Quality Measures VTE prophylaxis (SCDs) Assessment & Plan Assessment Current Active Medications: Generic Name Dose Route Start Last Admin Trade Name Freq PRN Reason Stop Dose Admin Acetaminophen 650 mg 09/20/24 23:40 Acetaminophen 325 Mg Tablet PO 10/20/24 15:21 Q6H PRN Pain (1-3) and Fever >101.5 Hydrocodone Bitart/Acetaminophen 1 tab 09/29/24 16:53 09/30/24 06:50 Hydrocodone/Apap 5/325 Tablet PO 10/04/24 16:52 1 tab Q6HR PRN Administration PAIN SCALE 4-10(Mod-Sev Artificial Tears 0 drop 09/24/24 17:39 09/28/24 08:53 Artificial Tears 225 Drop/15 Ml Btl BOTH EYES 10/24/24 17:38 1 drop PRN PRN Administration TO KEEP EYES MOIST Citric Acid/Sodium Citrate 30 ml 09/21/24 09:00 09/30/24 09:49 Citric Acid/Sodium Citr 15 Ml Udc (Bicitra) PO 10/21/24 08:59 30 ml BID JOSELIN Administration Albumin Human 25 gm in 100 mls @ 100 mls/hr 09/29/24 17:00 09/30/24 05:19 Albuminar-25 Ivpb IV 09/30/24 16:59 100 mls/hr QID JOSELIN Administration Lactulose 10 gm 09/20/24 21:00 09/30/24 09:50 Lactulose Syrup 20 Gm/30 Ml Udc PO 10/20/24 20:59 10 gm BID JOSELIN Administration Protocol Midodrine 10 mg 09/30/24 14:00 Midodrine 5 Mg Tablet PO 10/30/24 13:59 TID JOSELIN Octreotide Acetate 100 mcg 09/28/24 14:00 09/30/24 05:19 Octreotide Acet Inj 100 Mcg/Ml Vial SC 10/28/24 12:14 100 mcg TID JOSELIN Administration Protocol Ondansetron HCl 4 mg 09/20/24 15:22 Ondansetron Inj 2 Mg/Ml Inj 2 Ml IV 10/20/24 15:21 Q6H PRN NAUSEA OR VOMITING Protocol Pantoprazole Sodium 40 mg 09/21/24 09:15 09/30/24 09:50 Pantoprazole 40 Mg Tablet PO 10/20/24 15:29 40 mg QDAY JOSELIN Administration Sodium Chloride 1 gm 09/25/24 09:00 09/30/24 09:50 Sodium Chloride 1 Gm Tablet PO 10/25/24 08:59 1 gm BID JOSELIN Administration Plan Assessment and plan: Summary: Mr. 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 #DOMINGUEZ #Possible hepatorenal syndrome Patient has DOMINGUEZ likely secondary to hepatorenal syndrome Considering patient's extensive history of decompensated liver disease, patient may have a component of renal as contributing to his current DOMINGUEZ. Cannot rule out prerenal secondary to dehydration as patient has not had fluids or food today preparation for Pleurx cath removal. Creatinine worsened from baseline, GFR has decreased If renal function continues to worsen, anticipate the patient may likely require dialysis in the near future. Plan: -Monitor renal function in a.m. -Albumin 25%, 25gm increased to 100 gm daily -Continue octreotide 100 mcg subcutaneous 3 times daily -Continue midodrine 10 mg 3 times daily -Nephrology consulted; appreciate reccs -Consider goals of care discussion with family to understand patient and family's expectations. -Avoid nephrotoxic agents -Renally dose medications #Catheter-associated Enterococcus faecalus #Ascites # Status post removal of paracentesis catheter Patient presented in the hospital with hospice prior to admission. Tenderness and discomfort around paracentesis catheter, at high risk of infection due to the catheter. Patient has hx of weekly paracenthesis for fluid removal from ascites, raising suspicion of SBP. On exam, tenderness in abdominal cavity on exam, but afebrile. Peritoneal fluid (09/21) color yellow, appearance hazy, WBC 697, RBC 396, polynuclear WBCs 48%, mononuclear WBC 52%, peritoneal total protein less than 2, peritoneal albumin less than 1, peritoneal LDH 51, peritoneal glucose 117, peritoneal amylase 32. Peritoneal fluid (09/23) color yellow, peritoneal appearance easy, WBC 1347, RBC 4000, peritoneal polynuclear WBC 80%, mononuclear WBC 20%, total protein less than 2, albumin 1.3, LDH 233, glucose 72, Amylase 37 Ceftriaxone 2g (09/20-09/24). Peritoneal fluid culture positive for GPC,Enterococcus faecalus Levofloxacin (09/24-) given. Plan: -Consulted infectious disease Dr Cano, following; appreciate reccs -Will D/c home on hospice care, back to [facility] # Decompensated liver disease #Cirrhosis # Thrombocytopenia # Euvolemic hypoosmolar hyponatremia # History of esophageal gastric varices # History of GI bleed # Hypertension # History of normocytic anemia # Status post paracentesis Patient has history of decompensated liver failure, has distended abdomen ascitic pattern. He has a 40+ year drinking history. CTAP showed prominent ascites. Patient had ascitic fluid drainage during this hospitalization, and chronic weekly paracentesis with Pleurx catheter. Patient sodium 118 in ED improved to 128 currently on salt tablets. Patient is on Lasix and spironolactone at home. Recent admission for GI bleed, status post EGD with banding. Patient also had large internal hemorrhoids on colonoscopy had banding done. Hemoglobin is stable denies any blood in stool, denies any bloody emesis. Patient was transfused PRBC and platelets. Vitamin K received by patient. Plan: -Consulted soil analyst Dr. Banegas; recommends fluid restriction 1500 cc, salt tablets twice daily, and diet regular -Fluid restriction 1500 cc -salt tablets twice daily by nephrology -Grandin 5/325 every 6 hours as needed for pain. -Diet low-sodium -Hold home diuretics -Will continue to monitor, transfuse for Hgb < 7.0 -Lactulose 10 g twice daily # Metabolic acidosis with compensatory respiratory alkalosis, resolved #Leukocytosis, resolved DVT prophylaxis: SCDs GI prophylaxis: IV Protonix Diet: Regular diet, fluid restriction 1500 cc Lines: Peripheral IV Code status: Full code Case discussed with Attending Dr. Gann and Dr. Wilson PGY3. Tammy Brand PGY1
[2024-10-01] VITALS (8 sets, daily range): BP systolic 97–105; BP diastolic 58–68; PULSE 67–76; RESP 15–21; TEMP 36.7–36.8; O2SAT 97–99
[2024-10-01] MEDS: MIDODRINE 5 MG TABLET 10 MG PO (05:42)
[2024-10-01] MEDS: OCTREOTIDE ACET SC (05:42)
[2024-10-01] MEDS: HYDROcodone/APAP 5/325 TABLET 1 TAB PO (05:42)
[2024-10-01 06:02] LABS: Basophils % (Auto) 0 % (0-2.5); Eosinophils # (Auto) 0.1 Thou/mm3 (0.0-0.5); Eosinophils % (Auto) 1 % (0-10); Hematocrit 24.1 % (41.0-53.0); Immature Granulocytes % (Auto) 1 % (0-0); Immature Granulocytes Auto 0.08 Thou/mm3 (0.00-0.00); Lymphocytes # (Auto) 2.1 Thou/mm3 (1.0-4.8); Lymphocytes % (Auto) 23 % (10-50); Mean Corpuscular HGB Conc 35.3 g/dl (31.0-37.0); Mean Corpuscular Hemoglobin 31.7 pg (25.0-35.0); Mean Corpuscular Volume 90 fL (80-100); Monocytes % (Auto) 21 % (0-12); Neutrophils # (Auto) 4.9 Thou/mm3 (1.8-7.7); Neutrophils % (Auto) 54 % (37-80); Nucleated Red Blood Cell % 0 /100 WBC (0); Platelet Count 101 Thou/mm3 (140-440); RDW Standard Deviation 56.9 fL (35.1-43.9); Red Blood Count 2.68 Miln/mm3 (4.50-5.90); White Blood Count 9.2 Thou/mm3 (3.8-10.6)
[2024-10-01 06:28] LABS: Anion Gap 11 (7-16); BUN/Creatinine Ratio 15 Ratio (12-20); Blood Urea Nitrogen 46 mg/dL (9-23); Calcium 9.2 mg/dL (8.3-10.6); Chloride 94 mMol/L (98-107); Creatinine (Component) 3.1 mg/dL (0.6-1.3); Estimated Creatinine Clearance 22.7 mL/min (>60); Glucose 114 mg/dL (74-106); Osmolality,Calculated 268 (275-295); Sodium 127 mMol/L (136-145); eGFR 23 See Note
[2024-10-01 06:45] LABS: Hemoglobin 8.5 g/dL (13.5-16.0)
[2024-10-01 07:09] LABS: Potassium 2.7 mMol/L (3.4-5.1)
[2024-10-01] MEDS: POTASSIUM CHLORIDE 10% 20 MEQ/15 ML UDC 40 MEQ PO (07:22)
[2024-10-01] MEDS: POTASSIUM CHL 10 mEq IVPB 10 MEQ/100 ML BAG 100 MEQ IV ×2 (07:23→08:52)
[2024-10-01 08:47] LABS: INR 2.6 (0.9-1.3); Partial Thromboplastin Time 83.2 Seconds (22.0-36.0); Prothrombin Time 26.4 Seconds (9.0-12.2)
[2024-10-01] MEDS: SODIUM CHLORIDE 1 GM TABLET PO (08:52)
[2024-10-01] MEDS: LACTULOSE SYRUP 20 GM/30 ML UDC 10 GM PO (08:52)
[2024-10-01] MEDS: PANTOPRAZOLE 40 MG TABLET PO (08:52)
[2024-10-01] MEDS: CITRIC ACID/SODIUM CITR 15 ML UDC (BICITRA) 30 ML PO (10:31)
[2024-10-01] MEDS: ALBUMIN HUMAN 25% IVPB 25 GM/100 ML BTL IV ×2 (10:32→11:35)
--- NOTE | 2024-10-01 11:03 | PC.SS ---
Follow up note: SS has spoken to Josie Almaraz from [facility] who explained they have updated information and to inform her when pt is d/c.
--- NOTE | 2024-10-01 12:11 | PC.SS ---
SS met with pt who states his sister will provide transportation home. SS has confirmed with his sister, Elizabeth. They are aware a correspondence representative from [facility] will follow up with them at home. SS has informed Josie Almaraz from [facility] pt is being transported by his sister and will be returning home. SS has faxed dc summary and orders to [facility] upon her request.
--- NOTE | 2024-10-01 13:10 | ESDS_ITS ---
<Statement entered by Deion Gann MD - 10/03/24 16:38> 54-year-old male with end-stage liver disease with ascites and active alcohol use disorder who presented with generalized weakness found to have acute decompensated liver disease with what appears to be hepatorenal syndrome with worsening creatinine. Nephrology was consulted and recommended given the patient midodrine, albumin and octreotide however patient kidney function continues to worsen. Had a discussion with patient, his mother and sister at bedside and patient stated that he does not want to proceed with any therapy and wants to be discharged back to hospice. I updated him that his kidney failure continues to worsen and likely his electrolyte will continue to build up including hyperkalemia and likely will lead to cardiopulmonary arrest. He understands what hospice is and stated that he does not want to fight and wants to be at peace surrounded by his family members. Will respect his decision and discharge patient to SNF with hospice. I reviewed above note and agree with findings and plans. I have also personally examined the patient with medicine team and went over assessment and plan with medical team including summer intern and resident physician. <Statement entered by Erik Wilson DO - 10/01/24 16:24> Senior attestation: Patient was examined and case was reviewed with team including attending physician. Note reviewed, I agree with most of its contents and agree with the patient's care. Erik Wilson DO PGY-3 Planned Discharge Date 10/01/24 DS: Providers Provider Date of admission: 09/20/24 15:22 Primary care physician: Francis Tsang MD Admitting Provider: Ronny Esquivel DO Attending Provider on Admission: Deion Gann MD Consults: 09/20/24 15:51 Consult to Nephrology Stat Comment: Hyponatremia Consulting Provider: Evon Banegas 09/20/24 20:00 Referral Physical Therapy Routine Comment: Physician Instructions: Referral Respiratory Therapy Routine Comment: 09/22/24 11:02 Referral Wound Care Urgent Comment: 09/23/24 10:10 Referral Hospice Routine Comment: 09/23/24 16:38 Consult to Infectious Diseases Routine Comment: SBP Consulting Provider: Max Cano Attending Provider on DC: Deion Gann MD Discharging Provider: Deion Gann MD Anticipated date of discharge: 10/01/24 DS: Diagnosis Problem List Completed Was Problem List Reviewed/Reconciled?: Yes Hospital Course Hospital Course Hospital course: Hospital course: Mr. 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 Patient's sodium was 118 on admission, patient was placed on fluid restriction, nephrology was consulted, patient was initially given IV fluids with goal correction of 4 to 6 mEq in 24 hours, eventually patient was started on salt tablets and patient's sodium improved. Patient had indwelling paracentesis catheter as patient was on hospice, he reported discharge and tenderness around the catheter site, patient had 2 sessions of paracentesis during inpatient and ascitic fluid were significant for elevated PMNs increasing the suspicion of SBP, patient was given IV antibiotics, IV albumin for SBP, infectious disease was consulted and patient was given p.o. levofloxacin eventually, paracentesis catheter was removed due to high suspicion of it being the source of infection. Ascitic fluid culture showed Enterococcus faecalis, possible contamination. Of note patient was started on IV antibiotics before paracentesis. Patient's hospital course was complicated by acute kidney injury and with the progression of hospital course patient's renal function continued to decline, patient was started on treatment for hepatorenal syndrome and nephrology was consulted, patient received IV albumin, octreotide and midodrine. Patient's renal function continued to decline with progression of hospital course but patient expressed his wish to discharge home, discussed in detail about need to follow-up with nephrology, patient declined follow-up and requested discharge to home with home hospice, patient and patient's family understand poor prognosis as patient's renal function continues to decline, patient verbalized understanding. Further plan is to discharge patient home on hospice care and follow-up with primary care physician in 1 week. Patient is stable for home discharge on hospice. Discharge diagnoses: # Acute kidney injury # Possible hepatorenal syndrome # Catheter-associated Enterococcus faecalus # Ascites # Status post removal of paracentesis catheter # Spontaneous bacterial peritonitis # End-stage liver disease # Decompensated liver disease # Cirrhosis # Thrombocytopenia # Euvolemic hypoosmolar hyponatremia # History of esophageal gastric varices # History of GI bleed # Hypertension # History of normocytic anemia, possibly chronic # Status post paracentesis # Metabolic acidosis with compensatory respiratory alkalosis, resolved # Leukocytosis, resolved Case discussed with Attending Dr. Gann and Dr. Wilson PGY3. Tammy Brand PGY1 Status at Discharge Functional status at discharge: uses cane/walker Overall status at discharge: other (Patient's renal function is declining, patient will be discharged on hospice care.) Time Spent with Patient Time attestation: Total time spent providing and/or coordinating discharge services: Greater than 30 minutes Time spent: Greater than 30 minutes Exam Vital Signs Temp Pulse Resp BP Pulse Ox O2 Del Method O2 Flow Rate 98.3 F 74 20 105/64 97 Room Air 3 10/01/24 08:00 10/01/24 08:00 10/01/24 08:00 10/01/24 08:00 10/01/24 08:00 10/01/24 08:00 10/01/24 08:00 Narrative Exam General: Conversational, well-developed male, in no acute distress HEENT: Atraumatic/normocephalic, JUSTINO, on room air. Heart: RRR, S1 and S2 without clicks or murmurs. Lungs: Clear on auscultation bilaterally, no wheezing or crackles. Abdomen: Distended, mild tenderness in all 4 quadrants. Pleurx catheter removed dressing intact. Skin: Intact, no cyanosis or edema noted. Range of motion intact bilateral upper and lower extremities Neuro: Generally alert and oriented to person, place, time. Cranial nerves II to XII grossly intact Discharge Plan Plan Patient Disposition: Home w/HOSPICE Patient condition on transfer: Stable Care Plan Goals: Continue Home medications Changed Midodrine to 10mg TID. Continuity of care with Hospice Care Follow up with PCP in 1 week. Prescriptions/Referrals Prescriptions/Med Rec: New midodrine 10 mg tablet 10 mg PO TID 14 Days Qty: 42 0RF Rx Instructions: do not give last dose of day after 6PM or within 4 hrs of bedtime Continued furosemide 20 mg tablet 20 mg PO QDAY Hold Instructions: Resume on 08/28/24. trazodone 100 mg tablet 100 mg PO QHSPRN PRN (Reason: Sleep) Patient Comments: TAKE 1 TABLET BY MOUTH EVERY DAY AT BEDTIME NEEDED FOR 30 DAYS Rx Instructions: take 1 tablet by mouth every day at bedtime as needed ferrous sulfate 325 mg (65 mg iron) tablet 1 tab PO BID Patient Comments: TAKE 1 TABLET BY MOUTH TWICE A DAY FOR 30 DAYS melatonin 3 mg Tablet 3 mg PO HS PRN (Reason: Sleep) pantoprazole 40 mg tablet,delayed release (DR/EC) 40 mg PO BID Patient Comments: TAKE 1 TABLET BY MOUTH TWICE A DAY potassium chloride 10 mEq tablet,ER particles/crystals 10 meq PO QDAY Rx Instructions: take one tablet by mouth every day with food for 30 days. spironolactone 100 mg tablet 100 mg PO BID Hold Instructions: Resume on 08/28/24. dexamethasone 4 mg tablet 8 mg PO BID Rx Instructions: take 2 tablets by mouth twice a day for body fluid retention. hydrocodone-acetaminophen 5-325 mg Tablet 1 tab PO Q6H PRN (Reason: Pain) Discontinued midodrine 5 mg tablet 5 mg PO TID PRN (Reason: Hypotension) Rx Instructions: do not give last dose of day after 6PM or within 4 hrs of bedtime omeprazole 10 mg Capsule,Delayed Release(Dr/Ec) 10 mg PO QDAY Referrals: Francis Tsang MD [Primary Care Provider] - Patient/Caregiver Discharge Instructions Other Discharge Activity Instructions:: Continue Home medications Changed Midodrine to 10mg TID. Continuity of care with Hospice Care Follow up with PCP in 1 week. Education Materials: Paracentesis Dc, For Caregivers: Coping Tips, Acute Kidney Failure Dc Print Language: Kazakh Stand Alone Forms: Jessica Award Info., Patient Portal Info Letter Discharge Order Discharge Orders: Discharge (Routine); Ordered 10/01/24 Ordered By: Tammy Brand Quality Discharge Quality Measures VTE prophylaxis
[2024-10-06 07:07] LABS: Osmolality, Urine* 628 mOsm/kg (50-1200)
== END 2024-10-01 13:15 | disposition hospice, home (50) | DRG 280 ==
LOC: SERX 14:24 → SERHOLD 16:42 → S3SX 18:38
PROVIDERS: Internal Medicine Infectious Disease; Registered Nurse General Practice; Student in an Organized Health Care Education/Training Program; Admitting Provider Student in an Organized Health Care Education/Training Program; Emergency Provider Emergency Medicine; PCP Family Medicine; Visit Provider Internal Medicine
DX: K70.31 Alcoholic cirrhosis of liver with ascites (principal); E87.1 Hypo-osmolality and hyponatremia; E87.4 Mixed disorder of acid-base balance; F10.10 Alcohol abuse, uncomplicated; K65.2 Spontaneous bacterial peritonitis; E87.5 Hyperkalemia; I10 Essential (primary) hypertension; F12.90 Cannabis use, unspecified, uncomplicated; D64.9 Anemia, unspecified; D69.6 Thrombocytopenia, unspecified; Y90.0 Blood alcohol level of less than 20 mg/100 ml; K72.10 Chronic hepatic failure without coma; K76.7 Hepatorenal syndrome; N17.9 Acute kidney failure, unspecified; I95.9 Hypotension, unspecified; Z85.118 Personal history of other malignant neoplasm of bronchus and lung; Z87.891 Personal history of nicotine dependence
CPT/HCPCS: 36415; 74176; 77001; 80048; 80053; 80061; 80074; 80307; 80320; 81001; 82042; 82140; 82150; 82436; 82570; 82803; 82945; 83615; 83735; 83935; 84100; 84132; 84133; 84157; 84295; 84300; 84443; 85014; 85018; 85025; 85049; 85610; 85730; 86703; 86850; 86900; 86901; 86923; 86965; 87040; 87070; 87075; 87077; 87081; 87086; 87186; 87205; 89051; 93005; 93225; 96374; 97161; 99285; C1729; J0696; J2354; J2470; J3430; J3480; J7030; J7050; J7070; P9016; P9035; P9047; A9270; G0480

== ENCOUNTER → 2024-10-06 | Outpatient (CLI) | payer MEDICAID, SELFPAY ==
--- NOTE | 2024-10-06 11:00 | XR_ITS ---
Examination: Ultrasound-guided paracentesis Abdominal sonogram limited Date and time of exam: October 06, 2024 1132 hours INDICATIONS: Cirrhosis, increasing ascites and abdominal distention this week Informed consent provided. A timeout was completed verifying correct patient, procedure, site, positioning, and special adequate movement if applicable. Technique: Multiple sonographic images of the abdomen have been obtained. Appropriate area for paracentesis was marked. Local anesthesia is obtained with 1% lidocaine. Yueh catheter is successfully introduced. Findings: Abdominal sonographic images demonstrate sufficient ascitic fluid for paracentesis. After placing the Yueh catheter, 6600 cc of fluid were successfully removed. During and after completion of the procedure the patient appear in satisfactory and stable condition with no complications observed. Estimated blood loss 0 cc Impression: Abdominal ascites Successful ultrasound-guided paracentesis as described above
== END | disposition home or self-care (01) ==
PROVIDERS: PCP Family Medicine; Referring Provider Radiology Therapeutic Radiology; Visit Provider Radiology Therapeutic Radiology
DX: K70.31 Alcoholic cirrhosis of liver with ascites (principal)
CPT/HCPCS: 49083; C1729

== ENCOUNTER → 2024-10-14 | Outpatient (CLI) | payer OTHER, SELFPAY ==
--- NOTE | 2024-10-14 11:00 | XR_ITS ---
Examination: Abdomen sonogram, Limited Date and time of exam: October 14, 2024 1137 hours INDICATIONS: Cirrhosis increasing ascites and abdominal distention this week Technique: Real-time ornelas scale transabdominal sonographic images of the upper abdomen obtained. Findings: Minimal ascitic fluid IMPRESSION: Minimal ascitic fluid
== END | disposition home or self-care (01) ==
PROVIDERS: PCP Family Medicine; Referring Provider Radiology Therapeutic Radiology; Visit Provider Radiology Therapeutic Radiology
DX: K70.31 Alcoholic cirrhosis of liver with ascites (principal); Z53.8 Procedure and treatment not carried out for other reasons
CPT/HCPCS: 76705

== ENCOUNTER → 2024-10-18 | Outpatient (CLI) | payer SELFPAY ==
--- NOTE | 2024-10-18 11:39 | XR_ITS ---
Examination: Ultrasound-guided paracentesis Abdominal sonogram limited Date and time of exam: October 18, 2024 1215 hours INDICATIONS: Cirrhosis, increasing ascites and abdominal distention this week Informed consent provided. A timeout was completed verifying correct patient, procedure, site, positioning, and special adequate movement if applicable. Technique: Multiple sonographic images of the abdomen have been obtained. Appropriate area for paracentesis was marked. Local anesthesia is obtained with 1% lidocaine. Yueh catheter is successfully introduced. Findings: Abdominal sonographic images demonstrate sufficient ascitic fluid for paracentesis. After placing the Yueh catheter, 6400 cc of fluid were successfully removed. During and after completion of the procedure the patient appear in satisfactory and stable condition with no complications observed. Estimated blood loss 0 cc Impression: Abdominal ascites Successful ultrasound-guided paracentesis as described above
== END | disposition home or self-care (01) ==
PROVIDERS: Referring Provider Radiology Therapeutic Radiology; Visit Provider Radiology Therapeutic Radiology
DX: K70.31 Alcoholic cirrhosis of liver with ascites (principal)
CPT/HCPCS: 49083; C1729

== ENCOUNTER → 2024-10-25 | Outpatient (CLI) | payer OTHER, SELFPAY ==
[2024-10-20 12:00] LABS: Basophils % (Auto) 0 % (0-2.5); Eosinophils % (Auto) 0 % (0-10); Hematocrit 20.6 % (41.0-53.0); Immature Granulocytes % (Auto) 1 % (0-0); Immature Granulocytes Auto 0.05 Thou/mm3 (0.00-0.00); Lymphocytes # (Auto) 0.9 Thou/mm3 (1.0-4.8); Lymphocytes % (Auto) 14 % (10-50); Mean Corpuscular Hemoglobin 34.3 pg (25.0-35.0); Mean Corpuscular Volume 98 fL (80-100); Monocytes # (Auto) 0.7 Thou/mm3 (0.0-0.8); Monocytes % (Auto) 12 % (0-12); Neutrophils # (Auto) 4.5 Thou/mm3 (1.8-7.7); Neutrophils % (Auto) 73 % (37-80); Nucleated Red Blood Cell % 0 /100 WBC (0); Platelet Count 87 Thou/mm3 (140-440); RDW Standard Deviation 68.7 fL (35.1-43.9); White Blood Count 6.2 Thou/mm3 (3.8-10.6)
[2024-10-20 12:02] LABS: Hemoglobin 7.2 g/dL (13.5-16.0)
[2024-10-20 12:08] LABS: INR 1.9 (0.9-1.3); Partial Thromboplastin Time 39.4 Seconds (22.0-36.0); Prothrombin Time 20.3 Seconds (9.0-12.2)
[2024-10-20 12:10] LABS: Alanine Aminotransferase 19 U/L (10-49); Albumin, Serum 3.2 gm/dL (3.5-5.0); Alkaline Phosphatase 135 U/L (46-116); Anion Gap 10 (7-16); Aspartate Amino Transferase 53 U/L (0-34); BUN/Creatinine Ratio 16 Ratio (12-20); Bilirubin,Total 5.2 mg/dL (0.3-1.2); Blood Urea Nitrogen 19 mg/dL (9-23); Calcium 8.7 mg/dL (8.3-10.6); Calcium (Corrected) 9.3 mg/dL (8.5-10.1); Carbon Dioxide 17.2 mMol/L (20.0-31.0); Chloride 98 mMol/L (98-107); Creatinine (Component) 1.2 mg/dL (0.6-1.3); Globulin 3.3 gm/dL (2.3-3.5); Glucose 121 mg/dL (74-106); Osmolality,Calculated 254 (275-295); Sodium 125 mMol/L (136-145); Total Protein 6.5 gm/dL (5.7-8.2); eGFR > 60 See Note
--- NOTE | 2024-10-25 10:30 | XR_ITS ---
Examination: Ultrasound-guided paracentesis Abdominal sonogram limited Date and time of exam: October 25, 2024 1109 hours INDICATIONS: Cirrhosis, increasing ascites and abdominal distention this week Informed consent provided. A timeout was completed verifying correct patient, procedure, site, positioning, and special adequate movement if applicable. Technique: Multiple sonographic images of the abdomen have been obtained. Appropriate area for paracentesis was marked. Local anesthesia is obtained with 1% lidocaine. Yueh catheter is successfully introduced. Findings: Abdominal sonographic images demonstrate sufficient ascitic fluid for paracentesis. After placing the Yueh catheter, 2400 cc of fluid were successfully removed. During and after completion of the procedure the patient appear in satisfactory and stable condition with no complications observed. Estimated blood loss 0 cc Impression: Abdominal ascites Successful ultrasound-guided paracentesis as described above
== END | disposition home or self-care (01) ==
PROVIDERS: Referring Provider Radiology Therapeutic Radiology; Visit Provider Radiology Therapeutic Radiology
DX: K70.31 Alcoholic cirrhosis of liver with ascites (principal); Z01.812 Encounter for preprocedural laboratory examination
CPT/HCPCS: 49083; 36415; 80053; 85025; 85610; 85730; C1729

== ENCOUNTER → 2024-11-04 | Outpatient (CLI) | payer OTHER, SELFPAY ==
--- NOTE | 2024-11-04 11:00 | XR_ITS ---
Examination: Ultrasound-guided paracentesis Abdominal sonogram limited Date and time of exam: November 04, 2024 1110 hours INDICATIONS: Cirrhosis, increasing ascites and abdominal distention this week Informed consent provided. A timeout was completed verifying correct patient, procedure, site, positioning, and special adequate movement if applicable. Technique: Multiple sonographic images of the abdomen have been obtained. Appropriate area for paracentesis was marked. Local anesthesia is obtained with 1% lidocaine. Yueh catheter is successfully introduced. Findings: Abdominal sonographic images demonstrate sufficient ascitic fluid for paracentesis. After placing the Yueh catheter, 7700 cc of fluid were successfully removed. During and after completion of the procedure the patient appear in satisfactory and stable condition with no complications observed. Estimated blood loss 0 cc Impression: Abdominal ascites Successful ultrasound-guided paracentesis as described above
[2024-11-04 12:08] VITALS: BP 121/71; PULSE 82; RESP 16; O2SAT 97
[2024-11-04 12:10] VITALS: BP 118/71; PULSE 81; RESP 19; O2SAT 95
[2024-11-04] MEDS: ALBUMIN HUMAN 25% IVPB 25 GM/100 ML BTL IV (12:15)
[2024-11-04 13:00] VITALS: BP 120/69; PULSE 83; RESP 18; O2SAT 100
[2024-11-04 13:10] VITALS: BP 120/62; PULSE 80; RESP 16; O2SAT 98
== END | disposition home or self-care (01) ==
PROVIDERS: PCP Family Medicine; Referring Provider Radiology Therapeutic Radiology; Visit Provider Radiology Therapeutic Radiology
DX: K70.31 Alcoholic cirrhosis of liver with ascites (principal)
CPT/HCPCS: 49083; C1729; P9047

== ENCOUNTER → 2024-11-09 | Outpatient (CLI) | payer OTHER, SELFPAY ==
[2024-11-09 11:33] LABS: Basophils # (Auto) 0.1 Thou/mm3 (0.0-0.2); Basophils % (Auto) 1 % (0-2.5); Eosinophils # (Auto) 0.1 Thou/mm3 (0.0-0.5); Eosinophils % (Auto) 1 % (0-10); Hematocrit 23.4 % (41.0-53.0); Immature Granulocytes % (Auto) 1 % (0-0); Immature Granulocytes Auto 0.03 Thou/mm3 (0.00-0.00); Lymphocytes # (Auto) 2.2 Thou/mm3 (1.0-4.8); Lymphocytes % (Auto) 41 % (10-50); Mean Corpuscular HGB Conc 32.9 g/dl (31.0-37.0); Mean Corpuscular Volume 106 fL (80-100); Monocytes # (Auto) 0.7 Thou/mm3 (0.0-0.8); Monocytes % (Auto) 13 % (0-12); Neutrophils # (Auto) 2.4 Thou/mm3 (1.8-7.7); Neutrophils % (Auto) 44 % (37-80); Nucleated Red Blood Cell % 0 /100 WBC (0); Platelet Count 89 Thou/mm3 (140-440); RDW Standard Deviation 62.6 fL (35.1-43.9); White Blood Count 5.5 Thou/mm3 (3.8-10.6)
[2024-11-09 11:35] LABS: INR 1.8 (0.9-1.3); Prothrombin Time 18.9 Seconds (9.0-12.2)
[2024-11-09 11:45] LABS: Alanine Aminotransferase 18 U/L (10-49); Albumin, Serum 2.7 gm/dL (3.5-5.0); Albumin/Globulin Ratio 0.7 (1.2-2.2); Alkaline Phosphatase 185 U/L (46-116); Anion Gap 9 (7-16); Aspartate Amino Transferase 50 U/L (0-34); BUN/Creatinine Ratio 10 Ratio (12-20); Bilirubin,Total 4.2 mg/dL (0.3-1.2); Blood Urea Nitrogen 11 mg/dL (9-23); Calcium 8.4 mg/dL (8.3-10.6); Calcium (Corrected) 9.4 mg/dL (8.5-10.1); Carbon Dioxide 15.4 mMol/L (20.0-31.0); Chloride 111 mMol/L (98-107); Creatinine (Component) 1.1 mg/dL (0.6-1.3); Globulin 3.9 gm/dL (2.3-3.5); Glucose 138 mg/dL (74-106); Osmolality,Calculated 271 (275-295); Potassium 4.6 mMol/L (3.4-5.1); Sodium 135 mMol/L (136-145); Total Protein 6.6 gm/dL (5.7-8.2); eGFR > 60 See Note
[2024-11-09 12:05] LABS: Hemoglobin 7.7 g/dL (13.5-16.0)
== END | disposition home or self-care (01) ==
PROVIDERS: PCP Family Medicine; Referring Provider Family Medicine; Visit Provider Family Medicine
DX: K70.31 Alcoholic cirrhosis of liver with ascites (principal)
CPT/HCPCS: 36415; 80053; 85025; 85610; 85730

== ENCOUNTER → 2024-11-11 | Outpatient (CLI) | payer OTHER, SELFPAY ==
--- NOTE | 2024-11-11 11:00 | XR_ITS ---
Examination: Ultrasound-guided paracentesis Abdominal sonogram limited Date and time of exam: November 11, 2024 1120 hours INDICATIONS: Cirrhosis, increasing ascites and abdominal distention this week Informed consent provided. A timeout was completed verifying correct patient, procedure, site, positioning, and special adequate movement if applicable. Technique: Multiple sonographic images of the abdomen have been obtained. Appropriate area for paracentesis was marked. Local anesthesia is obtained with 1% lidocaine. Yueh catheter is successfully introduced. Findings: Abdominal sonographic images demonstrate sufficient ascitic fluid for paracentesis. After placing the Yueh catheter, 6600 cc of fluid were successfully removed. During and after completion of the procedure the patient appear in satisfactory and stable condition with no complications observed. Estimated blood loss 0 cc Impression: Abdominal ascites Successful ultrasound-guided paracentesis as described above
== END | disposition home or self-care (01) ==
LOC: SIRX 10:50
PROVIDERS: PCP Family Medicine; Referring Provider Radiology Therapeutic Radiology; Visit Provider Radiology Therapeutic Radiology
DX: K70.31 Alcoholic cirrhosis of liver with ascites (principal)
CPT/HCPCS: 49083; C1729

== ENCOUNTER → 2024-11-18 | Outpatient (CLI) | payer OTHER, SELFPAY ==
--- NOTE | 2024-11-18 11:00 | XR_ITS ---
Examination: Ultrasound-guided paracentesis Abdominal sonogram limited Date and time of exam: November 18, 2024 at 1111 hours INDICATIONS: Cirrhosis, increasing ascites and abdominal distention this week Informed consent provided. A timeout was completed verifying correct patient, procedure, site, positioning, and special adequate movement if applicable. Technique: Multiple sonographic images of the abdomen have been obtained. Appropriate area for paracentesis was marked. Local anesthesia is obtained with 1% lidocaine. Yueh catheter is successfully introduced. Findings: Abdominal sonographic images demonstrate sufficient ascitic fluid for paracentesis. After placing the Yueh catheter, 7100 cc of fluid were successfully removed. During and after completion of the procedure the patient appear in satisfactory and stable condition with no complications observed. Estimated blood loss 0 cc Impression: Abdominal ascites Successful ultrasound-guided paracentesis as described above
== END | disposition home or self-care (01) ==
PROVIDERS: PCP Family Medicine; Referring Provider Radiology Therapeutic Radiology; Visit Provider Radiology Therapeutic Radiology
DX: K70.31 Alcoholic cirrhosis of liver with ascites (principal)
CPT/HCPCS: 49083; C1729

== ENCOUNTER → 2024-11-25 | Outpatient (CLI) | payer OTHER, SELFPAY ==
--- NOTE | 2024-11-25 11:00 | XR_ITS ---
Examination: Ultrasound-guided paracentesis Abdominal sonogram limited Date and time of exam: November 25, 2024 at 1133 hours INDICATIONS: Cirrhosis, increasing ascites and abdominal distention this week Informed consent provided. A timeout was completed verifying correct patient, procedure, site, positioning, and special adequate movement if applicable. Technique: Multiple sonographic images of the abdomen have been obtained. Appropriate area for paracentesis was marked. Local anesthesia is obtained with 1% lidocaine. Yueh catheter is successfully introduced. Findings: Abdominal sonographic images demonstrate sufficient ascitic fluid for paracentesis. After placing the Yueh catheter, 7800 cc of fluid were successfully removed. During and after completion of the procedure the patient appear in satisfactory and stable condition with no complications observed. Estimated blood loss 0 cc Impression: Abdominal ascites Successful ultrasound-guided paracentesis as described above
== END | disposition home or self-care (01) ==
PROVIDERS: PCP Family Medicine; Referring Provider Radiology Therapeutic Radiology; Visit Provider Radiology Therapeutic Radiology
DX: K70.31 Alcoholic cirrhosis of liver with ascites (principal)
CPT/HCPCS: 49083; C1729

== ENCOUNTER → 2024-12-02 | Outpatient (CLI) | payer OTHER, SELFPAY ==
[2024-11-30 12:15] LABS: Basophils # (Auto) 0.1 Thou/mm3 (0.0-0.2); Basophils % (Auto) 1 % (0-2.5); Eosinophils # (Auto) 0.2 Thou/mm3 (0.0-0.5); Eosinophils % (Auto) 3 % (0-10); Hematocrit 28.2 % (41.0-53.0); Hemoglobin 9.8 g/dL (13.5-16.0); Immature Granulocytes % (Auto) 2 % (0-0); Immature Granulocytes Auto 0.13 Thou/mm3 (0.00-0.00); Lymphocytes # (Auto) 1.4 Thou/mm3 (1.0-4.8); Lymphocytes % (Auto) 20 % (10-50); Mean Corpuscular HGB Conc 34.8 g/dl (31.0-37.0); Mean Corpuscular Hemoglobin 35.4 pg (25.0-35.0); Mean Corpuscular Volume 102 fL (80-100); Monocytes % (Auto) 14 % (0-12); Neutrophils # (Auto) 4.2 Thou/mm3 (1.8-7.7); Neutrophils % (Auto) 60 % (37-80); Nucleated Red Blood Cell % 0 /100 WBC (0); Platelet Count 82 Thou/mm3 (140-440); RDW Standard Deviation 52.2 fL (35.1-43.9); Red Blood Count 2.77 Miln/mm3 (4.50-5.90); White Blood Count 6.9 Thou/mm3 (3.8-10.6)
[2024-11-30 12:40] LABS: INR 1.6 (0.9-1.3); Partial Thromboplastin Time 33.8 Seconds (22.0-36.0); Prothrombin Time 17.2 Seconds (9.0-12.2)
[2024-11-30 12:54] LABS: Alanine Aminotransferase 27 U/L (10-49); Albumin, Serum 2.7 gm/dL (3.5-5.0); Albumin/Globulin Ratio 0.7 (1.2-2.2); Alkaline Phosphatase 223 U/L (46-116); Anion Gap 9 (7-16); Aspartate Amino Transferase 49 U/L (0-34); BUN/Creatinine Ratio 10 Ratio (12-20); Bilirubin,Total 3.1 mg/dL (0.3-1.2); Blood Urea Nitrogen 14 mg/dL (9-23); Calcium 8.7 mg/dL (8.3-10.6); Calcium (Corrected) 9.7 mg/dL (8.5-10.1); Carbon Dioxide 15.9 mMol/L (20.0-31.0); Chloride 103 mMol/L (98-107); Creatinine (Component) 1.4 mg/dL (0.6-1.3); Globulin 3.9 gm/dL (2.3-3.5); Glucose 115 mg/dL (74-106); Osmolality,Calculated 258 (275-295); Potassium 4.5 mMol/L (3.4-5.1); Sodium 128 mMol/L (136-145); Total Protein 6.6 gm/dL (5.7-8.2); eGFR > 60 See Note
--- NOTE | 2024-12-02 13:00 | XR_ITS ---
Examination: Ultrasound-guided paracentesis Abdominal sonogram limited Date and time of exam: December 02, 2024 1336 hours INDICATIONS: Cirrhosis, increasing ascites and abdominal distention this week Informed consent provided. A timeout was completed verifying correct patient, procedure, site, positioning, and special adequate movement if applicable. Technique: Multiple sonographic images of the abdomen have been obtained. Appropriate area for paracentesis was marked. Local anesthesia is obtained with 1% lidocaine. Yueh catheter is successfully introduced. Findings: Abdominal sonographic images demonstrate sufficient ascitic fluid for paracentesis. After placing the Yueh catheter, 9,115 cc of fluid were successfully removed. During and after completion of the procedure the patient appear in satisfactory and stable condition with no complications observed. Estimated blood loss 0 cc Impression: Abdominal ascites Successful ultrasound-guided paracentesis as described above
[2024-12-02] MEDS: ALBUMIN HUMAN 25% IVPB 25 GM/100 ML BTL IV ×2 (14:55→15:27)
--- NOTE | 2024-12-02 14:59 | PC.NURSE ---
patient post paracenthesis, 9150ml fluid out per US tech, Dr. Bowen order 2 bottles albumin. IV started, albumin infusion started.
--- NOTE | 2024-12-02 16:11 | PC.NURSE ---
2 bottles of albumin infused, patient tolerated well, patient discharged home in wheelchair accompanied by sister
== END | disposition home or self-care (01) ==
PROVIDERS: PCP Family Medicine; Referring Provider Radiology Therapeutic Radiology; Visit Provider Radiology Therapeutic Radiology
DX: K70.31 Alcoholic cirrhosis of liver with ascites (principal)
CPT/HCPCS: 49083; 36415; 80053; 85025; 85610; 85730; C1729; P9047